=== PATIENT | male | born 1935 | race Caucasian/White ===

== ENCOUNTER 2018-02-02 02:22 | Inpatient (IN) | payer MEDICARE ==
[~2018-02-02] VITALS: Ht 165.1 cm; Wt 88.0 kg
[~2018-02-02 02:22] MED LIST: ALLO300T2 PO; ATOR20TA15 PO; BLOOD GLUCOSE T1 TES; CARD180C5 PO; CLON.2 PO; COZA100T PO; FURO20TA PO; GLIM1 PO; GLUCTES27; HYDR-3580 PO; LORA0.5T PO; Lancets; MEDICAL COMPRES1 MIS; METO50TA PO; MUPI2OIN TOPICAL; NITR0.4S SL; PANT40TA3 PO; PROS5TAB PO; TRIA.1%T TOPICAL; VITA10002 PO; VITA2000 PO
[2018-02-02 02:30] VITALS: BP 172/74; PULSE 74; RESP 20; TEMP 97.2; O2SAT 96
--- NOTE | 2018-02-02 02:41 | PD ---
HPI Chief Complaint: Abdominal Pain Time Seen by Provider: 02:36 Travel History International Travel<30 days: No Contact w/Intl Traveler<30days: No Traveled to known affect area: No History of Present Illness HPI Is an 82-year-old man presents emerged from chronic abdominal pain and nausea. He states symptoms started this evening. He states he has had similar problems a couple weeks ago with a lot of nausea and upset stomach but it resolved. Came on again tonight. He has a lot of trouble with constipation, is on chronic opiates. He states his bowels been a little bit loose today. No vomiting. Pains mostly in the lower abdomen, left greater than right. Urinating normally. Abdomen feels firm and hard and bloated. No other associated symptoms. No other complaints. History Past Medical History Narrative Medical - CAD, s/p CABG - Type 2 DM - CKD, stage III - Hypertension - nephrolithiasis - AAA (followed by Dr. Aaron) - s/p endovascular repair 2012 - hyperlipidemia - gout - chronic thrombocyptopenia (followed by Dr. Horner) - cirrhosis, portal hypertensive gastropathy - BPH - OA Tetanus Vaccination: Unknown Influenza Vaccination: Yes Social History Alcohol Use: Yes (VERY RARELY) Tobacco Use: No Allergies-Medications (Allergen,Severity, Reaction): Coded Allergies: penicillin G (Unverified Allergy, Severe, HIVES, 02/02/18) Reported Meds & Prescriptions Reported Meds & Active Scripts Active Lorazepam 0.5 Mg Tab 0.5 Mg PO DIRECTED PRN 1 tablet at bedtime as needed for sleep and 1 daily as needed for anxiety Cardizem CD 24 HR (Diltiazem CD 24 HR) 180 Mg Caper 360 Mg PO DAILY Take 2 180 mg tablets to equal 360 mg Triamcinolone Topical (Triamcinolone Acetonide) 0.1% Cream 1 Applic TOPICAL BID Nitrostat SL (Nitroglycerin) 0.4 Mg Subl 0.4 Mg SL DIRECTED PRN One tablet under tongue for angina as needed. Mupirocin Topical (Mupirocin) 2 % Oint 1 Applic TOPICAL BID Metoprolol Tartrate 50 Mg Tab 50 Mg PO BID Catapres (Clonidine) 0.2 Mg Tab 0.1 Mg PO BID Amaryl (Glimepiride) 1 Mg Tab 1 Mg PO DAILY Take with breakfast or first main meal Medical Compression Elastic Stockings 1 Mis Mis 1 Ea .ROUTE DIRECTED Wear to help with lower extremity edema Proscar (Finasteride) 5 Mg Tab 5 Mg PO DAILY Do not crush. Cozaar (Losartan Potassium) 100 Mg Tab 100 Mg PO DAILY Irma Contour Next Blood Test Strips (Blood Glucose Test Strips) 1 Darline Darline 1 Strip DAILY Atorvastatin (Atorvastatin Calcium) 20 Mg Tab 20 Mg PO HS Furosemide 20 Mg Tab 20 Mg PO DAILY Blood Glucose Test Strips 1 Darline Darline 1 Strips .ROUTE BID [Lancets] BID Reported Vitamin D3 (Cholecalciferol) 2,000 Unit Cap 2,000 Units PO DAILY Allopurinol 300 Mg Tab 300 Mg PO DAILY Pantoprazole (Pantoprazole Sodium) 40 Mg Tab 40 Mg PO DAILY Hydrocodone-Acetaminophen 7.5-325 mg Tab 1 Tab PO Q6H PRN Vitamin B-12 (Cyanocobalamin) 1,000 Mcg Tab 1,000 Mcg PO DAILY Review of Systems Except as stated in HPI: all other systems reviewed are Neg Physical Exam Narrative GENERAL: 82-year-old man, generally well-appearing. Abdomens rotund, but not obviously distended peer SKIN: Focused skin assessment warm/dry. HEAD: Atraumatic. Normocephalic. EYES: Pupils equal and round. No scleral icterus. No injection or drainage. ENT: No nasal bleeding or discharge. Mucous membranes pink and moist. NECK: Trachea midline. No JVD. CARDIOVASCULAR: Regular rate and rhythm. No murmur appreciated. RESPIRATORY: No accessory muscle use. Clear to auscultation. Breath sounds equal bilaterally. GASTROINTESTINAL: Rotund abdomen. Large umbilical hernia easily reducible. Mild lower abdominal tenderness. No rebound or guarding. RECTAL: No fecal impaction. Light brown stool in the rectal vault. MUSCULOSKELETAL: No obvious deformities. No edema. NEUROLOGICAL: Awake and alert. No obvious cranial nerve deficits. Motor grossly within normal limits. Normal speech. Data Data Last Documented VS Vital Signs Date Time Temp Pulse Resp B/P (MAP) Pulse Ox O2 Delivery O2 Flow Rate FiO2 02/02/18 02:30 97.2 74 20 172/74 (106) 96 Room Air Orders Orders Complete Blood Count With Diff (02/02/18 03:03) Comprehensive Metabolic Panel (02/02/18 03:03) Lipase (02/02/18 03:03) Urinalysis - C+S If Indicated (02/02/18 03:03) Iv Access Insert/Monitor (02/02/18 03:03) Ondansetron Inj (Zofran Inj) (02/02/18 03:15) Sodium Chloride 0.9% Flush (Ns Flush) (02/02/18 03:15) Ct Abd/Pel W/O Iv Contrast (02/02/18 ) Morphine Inj (Morphine Inj) (02/02/18 05:00) Metoclopramide Inj (Reglan Inj) (02/02/18 05:30) Aspirin Chew (Aspirin Chew) (02/02/18 09:00) Admit Order (Ed Use Only) (02/02/18 ) Labs Laboratory Tests Test 02/02/18 03:11 02/02/18 03:50 White Blood Count 8.3 TH/MM3 Red Blood Count 3.07 MIL/MM3 Hemoglobin 9.6 GM/DL Hematocrit 29.3 % Mean Corpuscular Volume 95.8 FL Mean Corpuscular Hemoglobin 31.3 PG Mean Corpuscular Hemoglobin Concent 32.7 % Red Cell Distribution Width 17.2 % Platelet Count 143 TH/MM3 Mean Platelet Volume 9.7 FL Neutrophils (%) (Auto) 88.5 % Lymphocytes (%) (Auto) 4.8 % Monocytes (%) (Auto) 4.5 % Eosinophils (%) (Auto) 1.4 % Basophils (%) (Auto) 0.8 % Neutrophils # (Auto) 7.3 TH/MM3 Lymphocytes # (Auto) 0.4 TH/MM3 Monocytes # (Auto) 0.4 TH/MM3 Eosinophils # (Auto) 0.1 TH/MM3 Basophils # (Auto) 0.1 TH/MM3 CBC Comment DIFF FINAL Differential Comment Blood Urea Nitrogen 49 MG/DL Creatinine 2.75 MG/DL Random Glucose 152 MG/DL Total Protein 7.8 GM/DL Albumin 3.0 GM/DL Calcium Level 9.5 MG/DL Alkaline Phosphatase 230 U/L Aspartate Amino Transf (AST/SGOT) 53 U/L Alanine Aminotransferase (ALT/SGPT) 22 U/L Total Bilirubin 0.5 MG/DL Sodium Level 142 MEQ/L Potassium Level 4.8 MEQ/L Chloride Level 108 MEQ/L Carbon Dioxide Level 23.4 MEQ/L Anion Gap 11 MEQ/L Estimat Glomerular Filtration Rate 22 ML/MIN Lipase 148 U/L Urine Color YELLOW Urine Turbidity CLEAR Urine pH 5.5 Urine Specific [place] 1.021 Urine Protein 300 OR GREATER mg/dL Urine Glucose (UA) NEG mg/dL Urine Ketones NEG mg/dL Urine Occult Blood SMALL Urine Nitrite NEG Urine Bilirubin NEG Urine Urobilinogen 1.0 MG/DL Urine Leukocyte Esterase NEG Urine RBC 4 /hpf Urine WBC 1 /hpf Urine Squamous Epithelial Cells <1 /hpf Urine Hyaline Casts 6 /lpf Microscopic Urinalysis Comment CULT NOT INDICATED MDM Medical Decision Making Medical Screen Exam Complete: Yes Emergency Medical Condition: Yes Interpretation(s) LABS: CBC remarkable for mild anemia. CMP remarkable for elevated BUN and creatinine 49/2.75 Lipase 148 UA with some protein. CT abdomen and pelvis: Stomach and proximal small bowel are dilated. Cirrhotic liver with appearance of hepatosplenomegaly and ascites. Fat and fluid containing umbilical hernia. 7 cm abdominal aortic aneurysm with endovascular repair. Small right pleural effusion. Differential Diagnosis Diverticulitis, constipation, obstipation, UTI, ascites, SBP, other Narrative Course Medical decision making Is an 82-year-old male presents to the emergency department with abdominal pain. He has a history of cirrhosis. Looks well. Easily reducible umbilical hernia. Rectal exam does not show any constipation or obstipation. Will check CT for diverticulitis. Labs. Reassess. FINAL: 82-year-old man with abdominal pain nausea and bloating. CT scan shows dilated stomach and proximal small bowel without a clear transition point. Stomach looks pretty distended on imaging. He can eat or drink at this point. No vomiting. I think it is worth keeping him in observation to make sure that he improves, does not worsen or progress to full obstruction. I think this is probably ileus, related to his cirrhosis and his medication use. Diagnosis Primary Impression: Ileus Additional Impression: Nausea Admitting Information Admitting Physician Requests: Carlos Hogan MD February 02, 2018 02:41
[2018-02-02] MEDS ORDERED: ONDANSETRON HCL 4 MG/2 ML VIAL IVP ONE (03:15)
[2018-02-02] MEDS ORDERED: SODIUM CHLORIDE 0.9% FLUSH 10 ML FLUSH IV FLUSH PRN ×2 (03:15→07:00)
[2018-02-02 03:26] LABS: AUTOMATED NEUTROPHIL # 7.3 TH/MM3 (1.8-7.7); BASOPHIL # 0.1 TH/MM3 (0-0.2); BASOPHIL % 0.8 % (0.0-2.0); EOSINOPHIL # 0.1 TH/MM3 (0-0.4); EOSINOPHIL % 1.4 % (0.0-4.0); HEMATOCRIT 29.3 % (39.0-51.0); HEMOGLOBIN 9.6 GM/DL (13.0-17.0); LYMPH % 4.8 % (9.0-44.0); LYMPHOCYTE # 0.4 TH/MM3 (1.0-4.8); MEAN CELL VOLUME 95.8 FL (80.0-100.0); MEAN CORPUSCULAR HEMOGLOBIN 31.3 PG (27.0-34.0); MEAN CORPUSCULAR HGB CONC 32.7 % (32.0-36.0); MEAN PLATELET VOLUME 9.7 FL (7.0-11.0); MONO % 4.5 % (0.0-8.0); MONOCYTE # 0.4 TH/MM3 (0-0.9); NEUT % 88.5 % (16.0-70.0); PLATELET COUNT 143 TH/MM3 (150-450); RED BLOOD COUNT 3.07 MIL/MM3 (4.50-5.90); RED CELL DISTRIBUTION WIDTH 17.2 % (11.6-17.2); WHITE BLOOD COUNT 8.3 TH/MM3 (4.0-11.0)
[2018-02-02 03:52] LABS: ALT (GPT) 22 U/L (12-78); AST (GOT) 53 U/L (15-37); BICARBONATE 23.4 MEQ/L (21.0-32.0); BLOOD UREA NITROGEN 49 MG/DL (7-18); CALCIUM 9.5 MG/DL (8.5-10.1); CHLORIDE 108 MEQ/L (98-107); CREATININE 2.75 MG/DL (0.60-1.30); GLOMERULAR FILTRATION RATE 22 ML/MIN (>89); GLUCOSE,RANDOM 152 MG/DL (74-106); SODIUM (NA) 142 MEQ/L (136-145)
[2018-02-02 03:53] LABS: ALKALINE PHOSPHATASE 230 U/L (45-117); TOTAL BILIRUBIN ADULT 0.5 MG/DL (0.2-1.0); TOTAL PROTEIN 7.8 GM/DL (6.4-8.2)
[2018-02-02 04:15] LABS: BILIRUBIN, URINE NEG (NEG); BLOOD, URINE SMALL (NEG); GLUCOSE,URINE NEG (NEG); KETONE, URINE NEG (NEG); NITRITE,URINE NEG (NEG); PH, URINE 5.5 (5.0-8.5); URINE COLOR YELLOW (YELLW/STRAW); URINE LEUKOCYTE ESTERASE NEG (NEG)
[2018-02-02 04:19] LABS: HYALINE CAST, URINE 6 /lpf (RARE); SQUAMOUS EPITHELIAL CELL URINE <1 /hpf (0-5)
--- NOTE | 2018-02-02 04:42 | RADRPT ---
EXAM DATE/TIME: 02/02/2018 03:28 [facility] COMPARISON: No previous studies available for comparison. INDICATIONS : Abdominal pain, nausea and constipation. ORAL CONTRAST: No oral contrast ingested. RADIATION DOSE: 13.15 CTDIvol (mGy) MEDICAL HISTORY : Renal failure, chronic. Aneurysm, abdominal. Hypertension.Diabetes. BPH. Renal calculi. SURGICAL HISTORY : Appendectomy. CABGAbdominal aortic aneurysm repair. ENCOUNTER: Initial ACUITY: 2 days PAIN SCALE: 6/10 LOCATION: Abdomen. TECHNIQUE: Volumetric scanning of the abdomen and pelvis was performed. Using automated exposure control and ad justment of the mA and/or kV according to patient size, radiation dose was kept as low as reasonably achievable to obtain optimal diagnostic quality images. DICOM format image data is available electro nically for review and comparison. FINDINGS: LOWER LUNGS: Small right pleural effusion LIVER: Cirrhotic liver appearance with ascites, mainly around the liver and spleen in the upper abdomen. SPLEEN: Enlarged without focal mass PANCREAS: Within normal limits. KIDNEYS: Normal in size and shape. There is no mass, stone, or hydronephrosis. ADRENAL GLANDS: Within normal limits. VASCULAR: Abdominal aortic aneurysm post previous endovascular repair. BOWEL/MESENTERY: Stomach and proximal small bowel are dilated. Gradual transition to normal caliber mid small bowel. C olon is decompressed with scattered diverticula. ABDOMINAL WALL: Fat and fluid containing umbilical hernia RETROPERITONEUM: There is no lymphadenopathy. BLADDER: No wall thickening or mass. REPRODUCTIVE: Within normal limits. INGUINAL: There is no lymphadenopathy or hernia. MUSCULOSKELETAL: Within normal limits for patient age. CONCLUSION: Stomach and proximal small bowel are dilated. Cirrhotic liver appearance with hepatosplenomegaly and ascites. Fat and fluid containing umbilical hernia Greater than 7 cm abdominal aortic aneurysm with endovascular repair noted Small right pleural effusion Carlos Miranda MD on February 02, 2018 at 4:33 Board Certified Radiologist. This report was verified electronically.
[2018-02-02] MEDS ORDERED: MORPHINE SULFATE 4 MG/ML INJ IV PUSH ONE (05:00)
[2018-02-02] MEDS ORDERED: METOCLOPRAMIDE HCL 10 MG/2 ML VIAL IV PUSH ONE (05:30)
--- NOTE | 2018-02-02 06:19 | HHI.HP ---
[facility] Service Family Medicine Primary Care Physician Fito Montgomery MD Admission Diagnosis Ileus, vomiting Diagnoses: International Travel<30 Days: No Contact w/Intl Traveler<30days: No Known Affected Area: No History of Present Illness The patient is a very pleasant 82 year old man with PMH significant for nephrolithiasis, HTN, T2DM, AAA s/p endovascular repair, gout who presented to the ED for evaluation of abdominal and back pain. Patient states his abdominal pain began a little after 18:00 yesterday after eating. He states this is not his first episode of this type of pain. He reports having a history of this type of pain after eating. He reports a history of constipation. He reports having a small episode of diarrhea late last night. He reports bilateral lower abdominal pain. Reports a 10/10 pain currently. He denies fevers or chills, chest pain, dyspnea. He endorses vomiting about 5 episodes here in the ED. He reports about 5 weeks ago he was also very nauseated and he had some episodes of emesis around this time. No recurrence of emesis until today. Per patient, he was told his emesis earlier today was bilious. Denies any emesis of blood. (Enrike Felix MD R2) Review of Systems Constitutional: DENIES: Fever, Chills Eyes: COMPLAINS OF: Blurred vision Respiratory: DENIES: Cough, Wheezing, Sputum production, Shortness of breath Cardiovascular: DENIES: Chest pain, Palpitations, Dyspnea on Exertion Gastrointestinal: COMPLAINS OF: Abdominal pain, Constipation, Diarrhea, Nausea , Vomiting, DENIES: Black stools, Bloody stools Genitourinary: DENIES: Hematuria, Dysuria Integumentary: DENIES: Rash Neurologic: COMPLAINS OF: Headache (Enrike Felix MD R2) Past Family Social History Past Medical History - ASHD - Type 2 DM - Hypertension - nephrolithiasis - AAA (followed by Dr. Aaron) - s/p endovascular repair 2012 - hyperlipidemia - gout - sub 5mm pulmonary nodule noted on chest CT 2007 (asbestoes related pleural disease also suggested) - stable on serial CT's - thrombocyptopenia (followed by Dr. Donaldson - imaging studies did show a component of cirrhosis) - portal hypertensive gastropathy - colon polyps - low serum B-12 level Past Surgical History - CABG - T&A - appendectomy - upper and lower endoscopy 11/20/12 - endovascular repair of AAA 2013 (Enrike Felix MD R2) Allergies: Coded Allergies: penicillin G (Unverified Allergy, Severe, HIVES, 02/02/18) Family History Heart disease, diabetes, hypertension, depression Social History Marrital Status: Living Situation: private home with Education: HS Work history: retired, [employer] Tobacco: none Alcohol: denies, last drink about 40 years ago Illicit drug use: none (Enrike Felix MD R2) Physical Exam Vital Signs Vital Signs Date Time Temp Pulse Resp B/P (MAP) Pulse Ox O2 Delivery O2 Flow Rate FiO2 02/02/18 02:30 97.2 74 20 172/74 (106) 96 Room Air Physical Exam GENERAL: NAD, sitting comfortably on side of bed NEURO: Alert. Normal speech. 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 Motor grossly normal. SKIN: Warm and dry. No rashes or erythema. HEAD: Normocephalic. Atraumatic. EYES: PERRL. EOMI. No scleral icterus. No injection or drainage. ENT: No nasal drainage. Moist mucous membranes. No oral ulcers or lesions. NECK: Supple, trachea midline. No JVD or lymphadenopathy. No carotid bruits. CARDIOVASCULAR: Regular rate and rhythm, early systolic blowing murmur LUSB. Peripheral pulses 2+. Capillary refill < 2 seconds. RESPIRATORY: Breath sounds clear to auscultation and equal bilaterally, without wheezes, rales, or rhonchi. No accessory muscle use. GASTROINTESTINAL: Abdomen tense but not hard, protuberant, mildly tender in the lower quadrants bilaterally, hypoactive bowel sounds. No rebound tenderness. No guarding. No tympany to percussion. MUSCULOSKELETAL: 1+ lower extremity edema to distal tibias bilaterally. Normal range of motion. BACK: Nontender without obvious deformity. No CVA tenderness. Laboratory Laboratory Tests Test 02/02/18 03:11 02/02/18 03:50 White Blood Count 8.3 Red Blood Count 3.07 Hemoglobin 9.6 Hematocrit 29.3 Mean Corpuscular Volume 95.8 Mean Corpuscular Hemoglobin 31.3 Mean Corpuscular Hemoglobin Concent 32.7 Red Cell Distribution Width 17.2 Platelet Count 143 Mean Platelet Volume 9.7 Neutrophils (%) (Auto) 88.5 Lymphocytes (%) (Auto) 4.8 Monocytes (%) (Auto) 4.5 Eosinophils (%) (Auto) 1.4 Basophils (%) (Auto) 0.8 Neutrophils # (Auto) 7.3 Lymphocytes # (Auto) 0.4 Monocytes # (Auto) 0.4 Eosinophils # (Auto) 0.1 Basophils # (Auto) 0.1 CBC Comment DIFF FINAL Differential Comment Blood Urea Nitrogen 49 Creatinine 2.75 Random Glucose 152 Total Protein 7.8 Albumin 3.0 Calcium Level 9.5 Alkaline Phosphatase 230 Aspartate Amino Transf (AST/SGOT) 53 Alanine Aminotransferase (ALT/SGPT) 22 Total Bilirubin 0.5 Sodium Level 142 Potassium Level 4.8 Chloride Level 108 Carbon Dioxide Level 23.4 Anion Gap 11 Estimat Glomerular Filtration Rate 22 Lipase 148 Urine Color YELLOW Urine Turbidity CLEAR Urine pH 5.5 Urine Specific [place] 1.021 Urine Protein 300 OR GREATER Urine Glucose (UA) NEG Urine Ketones NEG Urine Occult Blood SMALL Urine Nitrite NEG Urine Bilirubin NEG Urine Urobilinogen 1.0 Urine Leukocyte Esterase NEG Urine RBC 4 Urine WBC 1 Urine Squamous Epithelial Cells <1 Urine Hyaline Casts 6 Microscopic Urinalysis Comment CULT NOT INDICATED (Enrike Felix MD R2) Result Diagram: 02/02/18 0311 02/02/18 0311 Imaging Last 72 hours Impressions Abdomen/Pelvis CT 02/02/18 0000 Signed Impressions: Service Date/Time: Friday, February 02, 2018 03:28 - CONCLUSION: Stomach and proximal small bowel are dilated. Cirrhotic liver appearance with hepatosplenomegaly and ascites. Fat and fluid containing umbilical hernia Greater than 7 cm abdominal aortic aneurysm with endovascular repair noted Small right pleural effusion Carlos Miranda MD (Enrike Felix MD R2) Caprini VTE Risk Assessment Caprini VTE Risk Assessment: Mod/High Risk (score >= 2) Caprini Risk Assessment Model Point Value = 1 Point Value = 2 Point Value = 3 Point Value = 5 Age 41-60 Minor surgery BMI > 25 kg/m2 Swollen legs Varicose veins or History of unexplained or recurrent spontaneous Oral contraceptives or hormone replacement Sepsis (< 1 month) Serious lung disease, including pneumonia (< 1 month) Abnormal pulmonary function Acute myocardial infarction Congestive heart failure (< 1 month) History of inflammatory bowel disease Medical patient at bed rest Age 61-74 Arthroscopic surgery Major open surgery (> 45 min) Laparoscopic surgery (> 45 min) Malignancy Confined to bed (> 72 hours) Immobilizing plaster cast Central venous access Age >= 75 History of VTE Family history of VTE Factor V Leiden Prothrombin [id number] Lupus anticoagulant Anticardiolipin antibodies Elevated serum homocysteine Heparin-induced thrombocytopenia Other congenital or acquired thrombophilia Stroke (< 1 month) Elective arthroplasty Hip, pelvis, or leg fracture Acute spinal cord injury (< 1 month) Prophylaxis Regimen Total Risk Factor Score Risk Level Prophylaxis Regimen 0-1 Low Early ambulation 2 Moderate Order ONE of the following: *Sequential Compression Device (SCD) *Heparin 5000 units SQ BID 3-4 Higher Order ONE of the following medications: *Heparin 5000 units SQ TID *Enoxaparin/Lovenox 40 mg SQ daily (WT < 150 kg, CrCl > 30 mL/min) *Enoxaparin/Lovenox 30 mg SQ daily (WT < 150 kg, CrCl > 10-29 mL/min) *Enoxaparin/Lovenox 30 mg SQ BID (WT < 150 kg, CrCl > 30 mL/min) AND/OR *Sequential Compression Device (SCD) 5 or more Highest Order ONE of the following medications: *Heparin 5000 units SQ TID (Preferred with Epidurals) *Enoxaparin/Lovenox 40 mg SQ daily (WT < 150 kg, CrCl > 30 mL/min) *Enoxaparin/Lovenox 30 mg SQ daily (WT < 150 kg, CrCl > 10-29 mL/min) *Enoxaparin/Lovenox 30 mg SQ BID (WT < 150 kg, CrCl > 30 mL/min) AND *Sequential Compression Device (SCD) (Enrike Felix MD R2) Assessment and Plan Assessment and Plan 82 year old man being admitted due to an ileus. Code Status Full code Discussed Condition With Dr. Romeo Herron (Enrike Felix MD R2) Attending Attestation Patient seen and examined. Case reviewed and discussed with the resident team. Agree with plan of care as discussed with me and documented in the resident note. he was sipping his own water when I entered the room and wanted "a little orange juice". he is not currently vomiting and has had 2 normal bowel movements this am. will allow po liquids as he is already taking these and tolerating his water. discussed referral to lymphedema clinic as an outpt and he is interested in that as he has constant swelling of his legs (Clary Ramirez MD) Problem List: (1) Ileus ICD Codes: K56.7 - Ileus, unspecified Status: Acute Plan: The patient appears most likely to have an ileus and reports a history of this, abdomen is protuberant, no peritoneal signs at this time. He appears relatively comfortable on examination in the ED Abdomen/pelvis CT showing stomach and proximal small bowel dilation Afebrile without leukocytosis UA negative, no CVA tenderness Plan: - NPO except meds for bowel rest - IVF hydration with NS at 130 cc/hr - Ofirmev 1gm IV q6h prn pain - Constipation protocol ordered - Consider NGT suction if needed (2) Nausea ICD Codes: R11.0 - Nausea Status: Acute Plan: Zofran prn N/V Plan as above (3) Chronic kidney disease, stage III (moderate) ICD Codes: N18.3 - Chronic kidney disease, stage III (moderate) Plan: Patient has a history of stage III CKD GFR on admission is 22 IVF hydration as above Avoid nephrotoxins if able Monitor I/Os Permanent Comment: GFR at 50 - followed by nephrology, Dr. Ayala Last Edited By: Ftio Montgomery on Dec 27, 2012 10:05 (4) Hypertension ICD Codes: I10 - Hypertension Status: Chronic Plan: Continue home antihypertensives - Clonidine 0.1 mg po bid - Cardizem 360 mg po daily - Metoprolol 50 mg po bid Monitor vitals q4h (5) Type II diabetes mellitus ICD Codes: E11.9 - Type 2 diabetes mellitus Status: Acute Plan: Hold home glimepiride Accuchecks ACHS Low-dose ISS (6) Nutrition, metabolism, and development symptoms ICD Codes: R63.8 - Other symptoms and signs concerning food and fluid intake Plan: Fluids: NS at 130 cc/hr Electrolytes: Continue to monitor Nutrition: NPO DVT ppx: b/l SCDs (Enrike Felix MD R2) Physician Certification 2 Midnight Certification Type: Admission for Inpatient Services Order for Inpatient Services The services are ordered in accordance with Medicare regulations or non- Medicare payer requirements, as applicable. In the case of services not specified as inpatient-only, they are appropriately provided as inpatient services in accordance with the 2-midnight benchmark. Estimated LOS (days): 2 days is the estimated time the patient will need to remain in the hospital, assuming treatment plan goals are met and no additional complications. Post-Hospital Plan: Home (Enrike Felix MD R2) Enrike Felix MD R2 February 02, 2018 06:19 Clary Ramirez MD February 02, 2018 12:26
[2018-02-02] MEDS ORDERED: LORazepam 0.5 MG TAB PO PRN (06:30)
[2018-02-02 06:43] VITALS: BP 151/69; PULSE 69; RESP 20; O2SAT 97
[2018-02-02] MEDS ORDERED: LACTULOSE SYRUP 20 GM/30 ML CUP PO PRN (07:00)
[2018-02-02] MEDS ORDERED: NALOXONE HCL 0.4 MG/ML AMP IV PUSH PRN (07:00)
[2018-02-02] MEDS ORDERED: SENNOSIDES 8.6 MG TAB PO PRN (07:00)
[2018-02-02] MEDS ORDERED: BISACODYL 10 MG SUPP RECTAL PRN (07:00)
[2018-02-02] MEDS ORDERED: MAGNESIUM HYDROXIDE SUSP 30 ML CUP PO PRN (07:00)
[2018-02-02] MEDS ORDERED: ONDANSETRON HCL 4 MG/2 ML VIAL IVP PRN (07:00)
[2018-02-02] MEDS ORDERED: TEMAZEPAM 15 MG CAP PO PRN (07:00)
[2018-02-02] MEDS ORDERED: DEXTROSE 50% IN WATER 50 ML VIAL(D50) IV PUSH PRN (07:15)
[2018-02-02] MEDS ORDERED: NITROGLYCERIN 0.4 MG SL 25 TABS/BTL SL PRN (07:15)
[2018-02-02] MEDS ORDERED: GLUCAGON 1 MG/ML VIAL OTHER PRN (07:15)
[2018-02-02] MEDS: ACETAMINOPHEN 1000 MG/100 ML 100 ML IV SCH ×3 (07:35→18:36)
[2018-02-02 07:53] VITALS: BP 132/63; PULSE 64; RESP 16; TEMP 97.8; O2SAT 98
[2018-02-02] MEDS: INSULIN ASPART SUPPLEMENTAL SCALE SQ SCH ×4 (10:07→21:00)
[2018-02-02] MEDS: ASPIRIN 81 MG CHEW TAB CHEW SCH (10:07)
[2018-02-02] MEDS: DOCUSATE SODIUM 50 MG/SENNA 8.6 MG TAB PO SCH ×2 (10:07→22:05)
[2018-02-02] MEDS: SODIUM CHLORIDE 0.9% FLUSH 10 ML FLUSH IV FLUSH SCH ×2 (10:08→22:04)
[2018-02-02] MEDS: FINASTERIDE 5 MG TAB PO SCH (10:09)
[2018-02-02] MEDS: cloNIDine HCL 0.1 MG TAB PO SCH ×2 (10:09→22:05)
[2018-02-02] MEDS: PANTOPRAZOLE SOD 40 MG DELAYED RELEASE TAB PO SCH (10:09)
[2018-02-02] MEDS: METOPROLOL TARTRATE 50 MG TAB PO SCH ×2 (10:09→22:05)
[2018-02-02] MEDS: LOSARTAN 50 MG TAB PO SCH (10:10)
[2018-02-02] MEDS: SODIUM CHLOR 0.9% 1000 ML INJ 1,000 ML IV SCH ×3 (10:22→19:15)
[2018-02-02] MEDS: FUROSEMIDE 20 MG TAB PO SCH (10:22)
[2018-02-02] MEDS: DILTIAZEM-CD 180 MG CAP ER PO SCH (10:27)
[2018-02-02] MEDS: TRIAMCINOLONE ACETONIDE 0.1% CREAM 15 GM TOPICAL SCH ×2 (14:31→22:06)
[2018-02-02] MEDS: MUPIROCIN 2% OINT 22 GM TUBE TOPICAL SCH ×2 (14:31→22:06)
[2018-02-02 15:06] VITALS: BP 128/57; PULSE 58; RESP 16; TEMP 97.9; O2SAT 96
[2018-02-02 19:45] VITALS: BP 150/69; PULSE 59; RESP 18; TEMP 97.9; O2SAT 94
[2018-02-02] MEDS ORDERED: ATORVASTATIN 20 MG TAB PO SCH (21:00)
[2018-02-03 00:27] VITALS: BP 186/85; PULSE 62; RESP 18; TEMP 98.1; O2SAT 95
[2018-02-03] MEDS: ACETAMINOPHEN 1000 MG/100 ML 100 ML IV SCH ×2 (00:51→05:38)
[2018-02-03 03:58] VITALS: BP 169/77; PULSE 66; RESP 18; TEMP 98.5; O2SAT 94
[2018-02-03] MEDS: SODIUM CHLOR 0.9% 1000 ML INJ 1,000 ML IV SCH (05:55)
[2018-02-03 07:28] VITALS: BP 172/75; PULSE 68; RESP 16; TEMP 98; O2SAT 98
[2018-02-03] MEDS: INSULIN ASPART SUPPLEMENTAL SCALE SQ SCH (08:00)
--- NOTE | 2018-02-03 08:14 | HHI.FPPN ---
Subjective Remarks Mr. Ribera was afebrile with HTN overnight ( SBP's from 128-186); other VS wnl. Patient reports that he is doing well at this time. His abdominal pain and back pain have resolved. Patient reports large bowel movement with diarrhea yesterday. Patient is passing gas. Patient requests regular diet today stating he is hungry and would like to go home today if possible. No chest pain or shortness of breath. Patient feels that he is urinating normally; he has f/u with Nephrology in ~2mo. Patient's home BP also discussed; he checks it regularly and generally gets systolic values in 140's-160's. Patient would like to continue current regimen and monitor at home. (Erick Martinez MD R3) Remarks Patient did well after eating breakfast without abdominal pain CBC resulted- Hgb 8.1. No bleeding; assumed dilutional. Patient agreeable to getting outpatient CBC in 2-3 days and following up with Dr. Montgomery Repeat Cr 2.2; at baseline. will f/u with Nephrology routinely Patient will go to lymphedema clinic Will start stool softener for ileus on narcotics; can discuss with Dr. Montgomery about other bowel motility agents (Erick Martinez MD R3) Objective Vitals Vital Signs Date Time Temp Pulse Resp B/P (MAP) Pulse Ox O2 Delivery O2 Flow Rate FiO2 02/03/18 07:28 98.0 68 16 172/75 (107) 98 02/03/18 03:58 98.5 66 18 169/77 (107) 94 02/03/18 00:27 98.1 62 18 186/85 (118) 95 02/02/18 19:45 97.9 59 18 150/69 (96) 94 02/02/18 15:06 97.9 58 16 128/57 (80) 96 02/02/18 08:15 I/O 02/02/18 02/02/18 02/02/18 02/03/18 02/03/18 02/03/18 07:00 15:00 23:00 07:00 15:00 23:00 Intake Total 100 ml Output Total 350 ml Balance 100 ml -350 ml Intake IV Total 100 ml Output Urine Total 100 ml Stool Total 250 ml # Voids 2 2 # Bowel Movements 1 3 (Erick Martinez MD R3) Result Diagram: 02/03/18 0824 02/03/18 0824 Imaging Last Impressions Abdomen/Pelvis CT 02/02/18 0000 Signed Impressions: Service Date/Time: Friday, February 02, 2018 03:28 - CONCLUSION: Stomach and proximal small bowel are dilated. Cirrhotic liver appearance with hepatosplenomegaly and ascites. Fat and fluid containing umbilical hernia Greater than 7 cm abdominal aortic aneurysm with endovascular repair noted Small right pleural effusion Carlos Miranda MD Objective Remarks GENERAL: NAD, sitting comfortably on side of bed NEURO: Grossly normal cranial nerves. Grossly normal motor and sensory function peripherally SKIN: Warm and dry. No rashes or erythema. EYES: EOM grossly I CARDIOVASCULAR: Regular rate and rhythm, early systolic blowing murmur LUSB. 2+ peripheral edema to mid tibias bilaterally RESPIRATORY: Breath sounds clear to auscultation and equal bilaterally, without wheezes or congestion. Normal rate GASTROINTESTINAL: Normal bowel sounds. Large abdomen; no pain to palpation MUSCULOSKELETAL: Grossly normal motor function and ROM. No calf tenderness (Erick Martinez MD R3) A/P Assessment and Plan 82 year old man being admitted due to an ileus. (Erick Martinez MD R3) Attending Attestation Patient seen and examined. Case reviewed and discussed with the resident team. Agree with plan of care as discussed with me and documented in the resident note. he feels well and actually wanted to go home yesterday after his bowel movements. he will try miralax at home as she has chronic problems with constipation at least partially due to his Lortab (Clary Ramirez MD) Problem List: (1) Ileus ICD Codes: K56.7 - Ileus, unspecified Status: Acute Plan: 02/03- patient with resolved abdominal pain. Passing gas. Had diarrhea yesterday. Requests regular diet Impression: Patient with abdominal pain on admission. Reported history of ileus. Abdomen/pelvis CT showing stomach and proximal small bowel dilation Afebrile without leukocytosis UA negative, no CVA tenderness Plan: - Will advance diet from clear fluids to regular diet per patient request -Will plan to discharge if labs stable and patient tolerates food well as he is stooling well and without abdominal pain - IVF hydration with NS at 130 cc/hr - Ofirmev 1gm IV q6h prn pain - Constipation protocol ordered - Consider NGT suction if needed (2) Nausea ICD Codes: R11.0 - Nausea Status: Resolved Plan: Zofran prn N/V Plan as above (3) Chronic kidney disease, stage III (moderate) ICD Codes: N18.3 - Chronic kidney disease, stage III (moderate) Plan: Impression: Patient has a history of stage III CKD GFR on admission is 22 300 proteinuria on UA on admission -IVF hydration as above -Continue ARB for proteinuria -Avoid nephrotoxins if able -Monitor I/Os -Will repeat metabolic panel /6; assuming Cr back to baseline with IVF then patient can f/u routinely with his Super[facility] Permanent Comment: GFR at 50 - followed by nephrology, Dr. Ayala Last Edited By: Fito Montgomery on Dec 27, 2012 10:05 (4) Hypertension ICD Codes: I10 - Hypertension Status: Chronic Plan: 02/03: Discussed with patient; he would prefer to keep same regimen despite some frequent elevated BP during hospitalization. He will monitor at home and f/u with Dr. Montgomery Impression: Hypertensive during hospitalization intermittently with max SBP's in 180's. Patient checks BP at home regularly Continue home antihypertensives - Clonidine 0.1 mg po bid - Cardizem 360 mg po daily - Metoprolol 50 mg po bid -Monitor vitals q4h (5) Type II diabetes mellitus ICD Codes: E11.9 - Type 2 diabetes mellitus Status: Acute Plan: Hold home glimepiride Accuchecks ACHS Low-dose ISS (6) Nutrition, metabolism, and development symptoms ICD Codes: R63.8 - Other symptoms and signs concerning food and fluid intake Plan: Fluids: NS at 130 cc/hr Electrolytes: Continue to monitor Nutrition: NPO DVT ppx: b/l SCDs (Erick Martinez MD R3) Problem Qualifiers (1) Hypertension: Qualified Codes: I10 - Essential (primary) hypertension Erick Martinez MD R3 February 03, 2018 08:14 Clary Ramirez MD February 03, 2018 12:01
[2018-02-03] MEDS: SODIUM CHLORIDE 0.9% FLUSH 10 ML FLUSH IV FLUSH SCH (09:00)
[2018-02-03] MEDS: DOCUSATE SODIUM 50 MG/SENNA 8.6 MG TAB PO SCH (09:00)
[2018-02-03] MEDS: TRIAMCINOLONE ACETONIDE 0.1% CREAM 15 GM TOPICAL SCH (09:00)
[2018-02-03] MEDS: MUPIROCIN 2% OINT 22 GM TUBE TOPICAL SCH (09:00)
[2018-02-03 09:21] LABS: AUTOMATED NEUTROPHIL # 4.7 TH/MM3 (1.8-7.7); BASOPHIL % 0.5 % (0.0-2.0); EOSINOPHIL # 0.1 TH/MM3 (0-0.4); EOSINOPHIL % 2.1 % (0.0-4.0); HEMATOCRIT 25.2 % (39.0-51.0); HEMOGLOBIN 8.1 GM/DL (13.0-17.0); LYMPH % 7.3 % (9.0-44.0); LYMPHOCYTE # 0.4 TH/MM3 (1.0-4.8); MEAN CELL VOLUME 96.7 FL (80.0-100.0); MEAN CORPUSCULAR HEMOGLOBIN 31.2 PG (27.0-34.0); MEAN CORPUSCULAR HGB CONC 32.3 % (32.0-36.0); MEAN PLATELET VOLUME 9.5 FL (7.0-11.0); MONO % 5.5 % (0.0-8.0); MONOCYTE # 0.3 TH/MM3 (0-0.9); NEUT % 84.6 % (16.0-70.0); PLATELET COUNT 109 TH/MM3 (150-450); RED CELL DISTRIBUTION WIDTH 17.2 % (11.6-17.2); WHITE BLOOD COUNT 5.5 TH/MM3 (4.0-11.0)
[2018-02-03 09:41] LABS: BICARBONATE 21.2 MEQ/L (21.0-32.0); CREATININE 2.25 MG/DL (0.60-1.30)
--- NOTE | 2018-02-03 09:47 | HHI.DCPOC ---
Discharge Care Plan Diagnosis: (1) Ileus (2) Chronic kidney disease, stage III (moderate) (3) Hypertension (4) Swelling of lower extremity Goals to Promote Your Health * To prevent worsening of your condition and complications * To maintain your health at the optimal level Directions to Meet Your Goals Take your medications as prescribed Follow your dietary instruction Follow activity as directed Keep your appointments as scheduled Take your immunizations and boosters as scheduled If your symptoms worsen call your PCP, if no PCP go to Urgent Care Center or Emergency Room Smoking is Dangerous to Your Health. Avoid second hand smoke Call the 24-hour hour crisis hotline for domestic abuse at Ercik Martinez MD R3 February 03, 2018 09:47
[2018-02-03] MEDS ORDERED: ASPI-516 CHEW (10:15)
[2018-02-03] MEDS ORDERED: DOCU8.6T PO (10:15)
[2018-02-03] MEDS: DILTIAZEM-CD 180 MG CAP ER PO SCH (10:22)
[2018-02-03] MEDS: LOSARTAN 50 MG TAB PO SCH (10:22)
[2018-02-03] MEDS: METOPROLOL TARTRATE 50 MG TAB PO SCH (10:22)
[2018-02-03] MEDS: FINASTERIDE 5 MG TAB PO SCH (10:23)
[2018-02-03] MEDS: cloNIDine HCL 0.1 MG TAB PO SCH (10:23)
[2018-02-03] MEDS: ASPIRIN 81 MG CHEW TAB CHEW SCH (10:23)
[2018-02-03] MEDS: FUROSEMIDE 20 MG TAB PO SCH (10:24)
[2018-02-03] MEDS: PANTOPRAZOLE SOD 40 MG DELAYED RELEASE TAB PO SCH (10:24)
[2018-02-03] MEDS ORDERED: MIRA3350 PO (11:02)
[2018-02-03 13:01] LABS: ALBUMIN 2.6 GM/DL (3.4-5.0); DIRECT BILIRUBIN ADULT 0.2 MG/DL (0.0-0.2)
[2018-02-03 13:03] LABS: INDIRECT BILIRUBIN 0.3 MG/DL (0.0-0.8); TOTAL BILIRUBIN ADULT 0.5 MG/DL (0.2-1.0); TOTAL PROTEIN 6.5 GM/DL (6.4-8.2)
== END 2018-02-03 13:34 | disposition home or self-care (01) | DRG 389 ==
LOC: NEPE 02:22 → NEDA 05:58 → NEPFCDU 07:53 → OBSVTOIN 11:44
PROVIDERS: ADMIT Family Medicine; ATTEND Family Medicine
DX: K56.7 Ileus, unspecified (principal); K76.6 Portal hypertension; E11.22 Type 2 diabetes mellitus with diabetic chronic kidney disease; Z79.84 Long term (current) use of oral hypoglycemic drugs; D69.6 Thrombocytopenia, unspecified; I12.9 Hypertensive chronic kidney disease with stage 1 through stage 4 chronic kidney disease, or unspecified chronic kidney disease; N18.3 Chronic kidney disease, stage 3 (moderate); Z79.891 Long term (current) use of opiate analgesic; K31.89 Other diseases of stomach and duodenum; M10.9 Gout, unspecified; I25.10 Atherosclerotic heart disease of native coronary artery without angina pectoris; Z95.1 Presence of aortocoronary bypass graft; E78.5 Hyperlipidemia, unspecified; R91.1 Solitary pulmonary nodule; Z86.010 Personal history of colon polyps
CPT/HCPCS: 74176; 80048; 80053; 80076; 81001; 82948; 83690; 85025; 96374; 96375; J0131; J1815; J2270; J2405; J2765; J7030

== ENCOUNTER 2018-02-18 20:38 | Inpatient (IN) | payer MEDICARE ==
[~2018-02-18] VITALS: Ht 165.1 cm; Wt 81.8 kg
[~2018-02-18 20:38] MED LIST changes: +ASPI-516 CHEW; +MIRA3350 PO
[2018-02-18 21:11] VITALS: BP 162/72; PULSE 108; RESP 22; TEMP 98.2; O2SAT 95
[2018-02-18 21:34] VITALS: PULSE 98; RESP 16; O2SAT 94
[2018-02-18] MEDS ORDERED: FURO40TA PO (21:47)
[2018-02-18 22:06] VITALS: BP 177/79; PULSE 108; RESP 18; O2SAT 94
[2018-02-18] MEDS ORDERED: METOCLOPRAMIDE HCL 10 MG/2 ML VIAL IV PUSH ONE (22:15)
--- NOTE | 2018-02-18 22:23 | PD ---
HPI Chief Complaint: GI Complaint Time Seen by Provider: 21:43 Travel History International Travel<30 days: No Contact w/Intl Traveler<30days: No Traveled to known affect area: No History of Present Illness HPI 82-year-old male that presents to the ED for evaluation of abdominal pain, bloating and nausea. Per patient he was here early on January for evaluation of the same. Patient was admitted for abnormality to his small colon. Patient states that after being discharged he felt fine and he was doing well until the past couple of days when he started developing similar symptoms. Per patient for the past 3-4 days she has been having more pain and nausea and feeling that his catheter well. She takes chronic narcotics for anxiety and chronic pain. He states that he has been having normal bowel movements. States overall he feels nauseous and his appetite has been diminished. He has a hernia on his abdomen but denies any recent surgeries. He does have a history of AAA that was fixed by Dr. Live years ago. He also states that he has been having "arthritis pain." Per patient mainly to his shoulder, hips and back. He states that is been ongoing for years but it has been worsening with abdominal pain. Per patient his discomfort is 7 out of 10. Has an allergy to iodine. He has an allergy to penicillin. Denies any other medical issues. Has been passing gas. PFSH Past Medical History AAA: Yes (STENTED BY DR. HINSON 2012) Anemia: Yes (IRON DEF. ) Arthritis: Yes Asthma: No Blood Disorders: No Anxiety: Yes Depression: No Heart Rhythm Problems: Yes Cancer: No Cardiac Catheterization: Yes Cardiovascular Problems: Yes (TRIPLE BYPASS) High Cholesterol: Yes Chemotherapy: No Chest Pain: Yes Congestive Heart Failure: No COPD: No Coronary Artery Disease: Yes Diabetes: Yes Patient Takes Glucophage: No Diminished Hearing: No Endocrine: No GERD: Yes Genitourinary: No Hepatitis: No Hiatal Hernia: No Heparin Induced Thrombocytopen: No Hypertension: Yes Immune Disorder: No Kidney Stones: Yes Musculoskeletal: Yes (ARTHRITIS) Neurologic: No Psychiatric: No Reproductive: No Respiratory: No Immunizations Current: Yes Myocardial Infarction: No Radiation Therapy: No Sleep Apnea: No Thyroid Disease: No Past Surgical History Abdominal Surgery: Yes (APPEND., AORTIC STENT) AICD: No Appendectomy: Yes Arteriovenous Shunt: No Body Medical Devices: AORTIC STENT Cardiac Surgery: Yes (CABG X3) Coronary Artery Bypass Graft: Yes Eye Surgery: Yes (LILLIAM. LASER REP.. R CATARACT) Genitourinary Surgery: Yes (KIDNEY STONES) Insulin Pump: No Joint Replacement: No Neurologic Surgery: No Oral Surgery: Yes (TONSILS) Pacemaker: No Thoracic Surgery: No Tonsillectomy: Yes Other Surgery: Yes (KIDNEY STONE REMOVED SURGICALLY) Family History Family Myocardial Infarction: Yes Social History Alcohol Use: No Tobacco Use: No Substance Use: No Allergies-Medications (Allergen,Severity, Reaction): Coded Allergies: Iodinated Contrast- Oral and IV Dye (Verified Allergy, Severe, Hives, 02/18) penicillin G (Unverified Allergy, Severe, HIVES, 02/18/18) Reported Meds & Prescriptions Reported Meds & Active Scripts Active Miralax Powder (Polyethylene Glycol 3350 Powder) 17 Gm Powd 17 Gm PO DAILY Mix and dissolve one measuring cap-ful (17 grams) in water or juice. Aspirin 81 Mg Chew 81 Mg CHEW DAILY Lorazepam 0.5 Mg Tab 0.5 Mg PO DIRECTED PRN 1 tablet at bedtime as needed for sleep and 1 daily as needed for anxiety Triamcinolone Topical (Triamcinolone Acetonide) 0.1% Cream 1 Applic TOPICAL BID Nitrostat SL (Nitroglycerin) 0.4 Mg Subl 0.4 Mg SL DIRECTED PRN One tablet under tongue for angina as needed. Mupirocin Topical (Mupirocin) 2 % Oint 1 Applic TOPICAL BID Metoprolol Tartrate 50 Mg Tab 50 Mg PO BID Catapres (Clonidine) 0.2 Mg Tab 0.1 Mg PO BID Amaryl (Glimepiride) 1 Mg Tab 1 Mg PO DAILY Take with breakfast or first main meal Medical Compression Elastic Stockings 1 Mis Mis 1 Ea .ROUTE DIRECTED Wear to help with lower extremity edema Proscar (Finasteride) 5 Mg Tab 5 Mg PO DAILY Do not crush. Cozaar (Losartan Potassium) 100 Mg Tab 100 Mg PO DAILY Irma Contour Next Blood Test Strips (Blood Glucose Test Strips) 1 Darline Darline 1 Strip DAILY Atorvastatin (Atorvastatin Calcium) 20 Mg Tab 20 Mg PO HS Blood Glucose Test Strips 1 Darline Darline 1 Strips .ROUTE BID [Lancets] BID Reported Furosemide 40 Mg Tab 40 Mg PO DAILY Vitamin D3 (Cholecalciferol) 2,000 Unit Cap 2,000 Units PO DAILY Allopurinol 300 Mg Tab 300 Mg PO DAILY Pantoprazole (Pantoprazole Sodium) 40 Mg Tab 40 Mg PO DAILY Hydrocodone-Acetaminophen 7.5-325 mg Tab 1 Tab PO Q6H PRN Vitamin B-12 (Cyanocobalamin) 1,000 Mcg Tab 1,000 Mcg PO DAILY Review of Systems Except as stated in HPI: all other systems reviewed are Neg Physical Exam Narrative GENERAL: SKIN: Warm and dry. HEAD: Atraumatic. Normocephalic. EYES: Pupils equal and round. No scleral icterus. No injection or drainage. ENT: No nasal bleeding or discharge. Mucous membranes pink and moist. Tongue is midline. No uvula deviation. NECK: Trachea midline. No JVD. CARDIOVASCULAR: Regular rate and rhythm. No murmurs, S3, S4. RESPIRATORY: No accessory muscle use. Clear to auscultation. Breath sounds equal bilaterally. GASTROINTESTINAL: Abdomen soft, tender in the right lower quadrant, slightly distended. Hepatic and splenic margins not palpable. MUSCULOSKELETAL: Extremities without clubbing, cyanosis, or edema. No obvious deformities. Full range of motion of the upper and lower extremities bilaterally. NEUROLOGICAL: Awake and alert. No obvious cranial nerve deficits. Motor grossly within normal limits. Five out of 5 muscle strength in the arms and legs. Normal speech. PSYCHIATRIC: Appropriate mood and affect; insight and judgment normal. Data Data Last Documented VS Vital Signs Date Time Temp Pulse Resp B/P (MAP) Pulse Ox O2 Delivery O2 Flow Rate FiO2 02/18/18 22:06 108 18 177/79 (111) 94 Room Air 02/18/18 21:11 98.2 Orders Orders Complete Blood Count With Diff (02/18/18 22:) Comprehensive Metabolic Panel (02/18/18 22:) Lipase (02/18/18 22:09) Lactic Acid (02/18/18 22:09) Prothrombin Time / Inr (Pt) (02/18/18:) Act Partial Throm Time (Ptt) (02/18/18:) Urinalysis - C+S If Indicated (02/18/18 22:09) Ct Abd/Pel W/O Iv Contrast (02/18/18 22:09) Iv Access Insert/Monitor (02/18/18 22:09) Ecg Monitoring (02/18/18 22:) Oximetry (02/18/18 22:09) Metoclopramide Inj (Reglan Inj) (02/18/18 22:15) Electrocardiogram (02/18/18 ) Lorazepam Inj (Ativan Inj) (02/18/18 22:30) MDM Medical Decision Making Medical Screen Exam Complete: Yes Emergency Medical Condition: Yes Medical Record Reviewed: Yes Differential Diagnosis Obstruction versus ileus versus chronic pain versus acute on chronic pain versus diverticulitis versus chronic nausea versus now she will versus gastroenteritis versus gastroparesis Narrative Course 82-year-old male that presents to the ED for evaluation of right lower quadrant abdominal pain. Patient was properly examined and was found to have signs and symptoms of unclear etiology with deafly concerning for obstruction. Labs and imaging order. Case signed out to my attending pending disposition and plan. Pramod Culp February 18, 2018 22:23
[2018-02-18] MEDS ORDERED: LORazepam 2 MG/ML VIAL IV PUSH ONE (22:30)
[2018-02-18 22:35] LABS: AUTOMATED NEUTROPHIL # 9.6 TH/MM3 (1.8-7.7); BASOPHIL # 0.1 TH/MM3 (0-0.2); BASOPHIL % 0.5 % (0.0-2.0); EOSINOPHIL % 0.2 % (0.0-4.0); HEMATOCRIT 33.6 % (39.0-51.0); HEMOGLOBIN 10.7 GM/DL (13.0-17.0); LYMPH % 2.4 % (9.0-44.0); LYMPHOCYTE # 0.2 TH/MM3 (1.0-4.8); MEAN CELL VOLUME 96.3 FL (80.0-100.0); MEAN CORPUSCULAR HEMOGLOBIN 30.7 PG (27.0-34.0); MEAN CORPUSCULAR HGB CONC 31.9 % (32.0-36.0); MEAN PLATELET VOLUME 9.4 FL (7.0-11.0); MONO % 3.4 % (0.0-8.0); MONOCYTE # 0.3 TH/MM3 (0-0.9); NEUT % 93.5 % (16.0-70.0); PLATELET COUNT 166 TH/MM3 (150-450); RED BLOOD COUNT 3.49 MIL/MM3 (4.50-5.90); RED CELL DISTRIBUTION WIDTH 18.6 % (11.6-17.2); WHITE BLOOD COUNT 10.2 TH/MM3 (4.0-11.0)
--- NOTE | 2018-02-18 22:45 | RADRPT ---
EXAM DATE/TIME: 02/18/2018 22:28 [facility] COMPARISON: CT ABDOMEN & PELVIS W/O CONTRAST, February 02, 2018, 3:28. INDICATIONS : Abdomen pain. ORAL CONTRAST: No oral contrast ingested. RADIATION DOSE: 15.27 CTDIvol (mGy) MEDICAL HISTORY : Aneurysm, abdominal. Hypertension. Cardiovascular diseaseRenal stones. SURGICAL HISTORY : CABG ENCOUNTER: Initial ACUITY: 1 day PAIN SCALE: 4/10 LOCATION: Bilateral abdomen TECHNIQUE: Volumetric scanning of the abdomen and pelvis was performed. Using automated exposure control and ad justment of the mA and/or kV according to patient size, radiation dose was kept as low as reasonably achievable to obtain optimal diagnostic quality images. DICOM format image data is available electro nically for review and comparison. FINDINGS: LOWER LUNGS: A moderate sized right pleural effusion with associated atelectasis has increased from the prior stud y. Moderate cardiomegaly without pericardial effusion. Significant coronary artery atherosclerotic ca lcifications. LIVER: Cirrhotic changes. Concern for low-density mass involving segment 7. This measures approximately 8 cm in diameter. It is difficult again accurate measurement given the lack of IV contrast and is vague m argination. No ductal dilatation. Gallbladder shows layering high-density material either related to sludge or stones. SPLEEN: Mild splenomegaly is stable from the prior exam. PANCREAS: Within normal limits. KIDNEYS: Normal in size and shape. There is no mass, stone, or hydronephrosis. ADRENAL GLANDS: Within normal limits. VASCULAR: Prior endovascular repair of a AAA. The [place] aneurysm sac is stable measuring 7 cm. BOWEL/MESENTERY: Small volume ascites largely centered around the liver and spleen. The volume is stable from the prio r study. No free air. Scattered colonic diverticuli without acute inflammation. Small bowel and stoma ch are unremarkable. Mesentery is unremarkable. ABDOMINAL WALL: There is an umbilical hernia that is broad-based in nature and contains fat. A small amount of fluid is within this as well. This is stable in appearance. RETROPERITONEUM: There is no lymphadenopathy. BLADDER: No wall thickening or mass. REPRODUCTIVE: Within normal limits. INGUINAL: There is no lymphadenopathy or hernia. MUSCULOSKELETAL: Within normal limits for patient age. CONCLUSION: 1. No acute abnormality to explain the patient's pain. 2. Cirrhosis with concern for right hepatic lobe mass measuring approximately 8 cm. MRI with gadolini um is suggested to further evaluate this lesion. Hepatocellular carcinoma is the chief concern. 3. Stable small volume ascites. 4. Umbilical hernia. 5. Cholelithiasis. José Miguel Rollins Jr., MD on February 18, 2018 at 22:37 Board Certified Radiologist. This report was verified electronically.
[2018-02-18 22:49] LABS: INTERNATIONAL NORMALIZED RATIO 1.2 RATIO
[2018-02-18 22:56] LABS: ALBUMIN 2.9 GM/DL (3.4-5.0); AST (GOT) 82 U/L (15-37); BICARBONATE 24.5 MEQ/L (21.0-32.0); BLOOD UREA NITROGEN 31 MG/DL (7-18); CALCIUM 9.6 MG/DL (8.5-10.1); CHLORIDE 104 MEQ/L (98-107); CREATININE 2.11 MG/DL (0.60-1.30); GLOMERULAR FILTRATION RATE 30 ML/MIN (>89); GLUCOSE,RANDOM 150 MG/DL (74-106); SODIUM (NA) 141 MEQ/L (136-145)
[2018-02-18 22:57] LABS: ALT (GPT) 23 U/L (12-78)
[2018-02-18 23:00] LABS: ALKALINE PHOSPHATASE 254 U/L (45-117); TOTAL PROTEIN 7.9 GM/DL (6.4-8.2)
[2018-02-18 23:39] LABS: BILIRUBIN, URINE MOD (NEG); BLOOD, URINE SMALL (NEG); GLUCOSE,URINE NEG (NEG); KETONE, URINE NEG (NEG); NITRITE,URINE NEG (NEG); URINE COLOR YELLOW (YELLW/STRAW); URINE LEUKOCYTE ESTERASE NEG (NEG)
[2018-02-18 23:45] VITALS: BP 139/93; PULSE 97; RESP 16; O2SAT 93
[2018-02-19] VITALS (9 sets, daily range): BP systolic 118–184; BP diastolic 59–95; PULSE 68–103; RESP 17–18; TEMP 97.2–98.8; O2SAT 91–94
[2018-02-19 00:03] LABS: HYALINE CAST, URINE 31 /lpf (RARE); MUCUS URINE FEW /lpf (OCC); SQUAMOUS EPITHELIAL CELL URINE 1 /hpf (0-5)
[2018-02-19] MEDS ORDERED: IBUPROFEN 400 MG TAB PO ONE (00:15)
--- NOTE | 2018-02-19 00:27 | HHI.HP ---
[facility] Service Family Medicine Primary Care Physician Fito Montgomery MD Admission Diagnosis Liver Mass Diagnoses: International Travel<30 Days: No Contact w/Intl Traveler<30days: No Known Affected Area: No History of Present Illness Patient w/hx of DM2 and chronic back pain presenting w/RUQ pain. PCP is Dr. Montgomery. Patient has poor health literacy/memory, seems confused at times. Patient has had severe nausea that has worsened but started 3 weeks ago. Has not been able to eat very much; has only been able to keep down toast and liquids during this time. Last ate hot tea with half piece of toast before coming to the hospital at 6 PM. No vomiting, dizziness, or hematemesis associated with the nausea. Has had a weight loss of about 18 pounds in the last 15 days (per chart documentation). Patient states that it is his nausea that has brought him to the hospital, grandson transported into the hospital at his request. He also reports that he has had back, hip, and shoulder pain that is chronic but has been worsening in the last couple days. Usually takes [place] 7.5-325 mg every 6 hours as needed for pain as a home medication, states however that this has not been improving his pain at all. The only thing that helps his pain is getting up and sitting in a chair. PCP is Dr. Moore. Patient was recently referred to pain management but has not seen them yet. He is usually able to walk only a couple steps before having to lean on a chair. Reports recent worsening abdominal distention most notable on the right side in the last 2 weeks. Denies shortness of breath. No diarrhea, bloody stools,lower extremity edema, or night sweats. No history of alcohol abuse. Patient states that his last drink was decades ago. Father from hepatic cancer. Was hospitalized in the hospital on the 02 of February for suspected ileus after day of being n.p.o. and on IV hydration. Was placed on Ofirmev 1 g IV every 6 hours for pain, however patient states that on his admission he received IV morphine which resolved his pain completely (he received IV morphine 1 in the ED). also had abdominal pain and back pain. Patient requested regular diet and requested to go home at the end of admission, stayed for 2 days. Review of Systems ROS Limitations: Poor Historian Constitutional: COMPLAINS OF: Weight loss, Change in appetite, DENIES: Fever, Night Sweats Eyes: DENIES: Eye inflammation, Eye pain Ears, nose, mouth, throat: DENIES: Hearing loss Respiratory: DENIES: Cough, Shortness of breath Cardiovascular: DENIES: Chest pain, Palpitations Gastrointestinal: DENIES: Constipation Genitourinary: DENIES: Urinary frequency, Urinary incontinence Musculoskeletal: DENIES: Muscle aches Integumentary: DENIES: Abnormal pigmentation Hematologic/lymphatic: DENIES: Bruising Neurologic: DENIES: Abnormal gait, Headache, Paresthesias Past Family Social History Past Medical History - ASHD - Type 2 DM - Hypertension - AAA - s/p endovascular repair 2012 - hyperlipidemia - hx gout, last episode [address] Mendes regularly for gout and arthritis - sub 5mm pulmonary nodule noted on chest CT 2007 (asbestos related pleural disease also suggested) - stable on serial CT's - hx thrombocyoptopenia (followed by Dr. Butts - imaging studies did show a component of cirrhosis) - portal hypertensive gastropathy - low serum B-12 level - iron deficiency anemia - CKD Stage 3, sees Dr. Ayala Past Surgical History - CABG - T&A - appendectomy - upper and lower endoscopy 11/20/12 - endovascular repair of AAA 2012 Reported Medications Reported Meds & Active Scripts Active Miralax Powder (Polyethylene Glycol 3350 Powder) 17 Gm Powd 17 Gm PO DAILY Mix and dissolve one measuring cap-ful (17 grams) in water or juice. Aspirin 81 Mg Chew 81 Mg CHEW DAILY Lorazepam 0.5 Mg Tab 0.5 Mg PO DIRECTED PRN 1 tablet at bedtime as needed for sleep and 1 daily as needed for anxiety Triamcinolone Topical (Triamcinolone Acetonide) 0.1% Cream 1 Applic TOPICAL BID Nitrostat SL (Nitroglycerin) 0.4 Mg Subl 0.4 Mg SL DIRECTED PRN One tablet under tongue for angina as needed. Mupirocin Topical (Mupirocin) 2 % Oint 1 Applic TOPICAL BID Metoprolol Tartrate 50 Mg Tab 50 Mg PO BID Catapres (Clonidine) 0.2 Mg Tab 0.1 Mg PO BID Amaryl (Glimepiride) 1 Mg Tab 1 Mg PO DAILY Take with breakfast or first main meal Medical Compression Elastic Stockings 1 Mis Mis 1 Ea .ROUTE DIRECTED Wear to help with lower extremity edema Proscar (Finasteride) 5 Mg Tab 5 Mg PO DAILY Do not crush. Cozaar (Losartan Potassium) 100 Mg Tab 100 Mg PO DAILY Imra Contour Next Blood Test Strips (Blood Glucose Test Strips) 1 Darline Darline 1 Strip DAILY Atorvastatin (Atorvastatin Calcium) 20 Mg Tab 20 Mg PO HS Blood Glucose Test Strips 1 Darline Darline 1 Strips .ROUTE BID [Lancets] BID Reported Furosemide 40 Mg Tab 40 Mg PO DAILY Vitamin D3 (Cholecalciferol) 2,000 Unit Cap 2,000 Units PO DAILY Allopurinol 300 Mg Tab 300 Mg PO DAILY Pantoprazole (Pantoprazole Sodium) 40 Mg Tab 40 Mg PO DAILY Hydrocodone-Acetaminophen 7.5-325 mg Tab 1 Tab PO Q6H PRN Vitamin B-12 (Cyanocobalamin) 1,000 Mcg Tab 1,000 Mcg PO DAILY Allergies: Coded Allergies: Iodinated Contrast- Oral and IV Dye (Verified Allergy, Severe, Hives, 02/18) penicillin G (Unverified Allergy, Severe, HIVES, 02/18/18) Family History Mother: Heart disease, diabetes, hypertension, depression Father: hepatic cancer Social History Marital Status: Living Situation: private home with Education: HS Work history: retired, [employer] Tobacco: none Alcohol: denies, last drink about 40 years ago Illicit drug use: none Physical Exam Vital Signs Vital Signs Date Time Temp Pulse Resp B/P (MAP) Pulse Ox O2 Delivery O2 Flow Rate FiO2 02/18/18 23:45 97 16 139/93 (108) 93 Room Air 02/18/18 22:06 108 18 177/79 (111) 94 Room Air 02/18/18 21:34 98 16 94 Room Air 02/18/18 21:11 98.2 108 22 162/72 (102) 95 Physical Exam GENERAL: This is a disheveled, elderly gentleman resting quietly in bed on his side, in no apparent distress. SKIN: Old bruise on the right extensor surface of the lower extremity noted. Cool and dry. No jaundice. HEAD: Atraumatic. Normocephalic. EYES: Pupils equal round and reactive. Extraocular motions intact. No scleral icterus. No injection or drainage. ENT: Nose without bleeding, purulent drainage or septal hematoma. Throat without erythema, tonsillar hypertrophy or exudate. Uvula midline. Airway patent. NECK: Trachea midline. Unable to appreciate JVD due to body habitus. CARDIOVASCULAR: Regular rate and rhythm without murmurs, gallops, or rubs. RESPIRATORY: Clear to auscultation. Breath sounds equal bilaterally. No crackles. GASTROINTESTINAL: Abdomen is distended, mainly tender in the right upper quadrant, but also endorses tenderness of the lower quadrants. Ascites with positive fluid wave. Possible hepatomegaly. Umbilical hernia noted. No caput medusa noted. MUSCULOSKELETAL: Extremities without clubbing, cyanosis, or edema. No rashes, lesions, or masses noted on the back and hips. No calf tenderness. No joint swelling or tenderness. NEUROLOGICAL: Awake and alert. Cranial nerves II through XII intact. Limited motor exam due to pain. Normal speech. Laboratory Laboratory Tests Test 02/18/18 22:19 02/18/18 23:25 White Blood Count 10.2 Red Blood Count 3.49 Hemoglobin 10.7 Hematocrit 33.6 Mean Corpuscular Volume 96.3 Mean Corpuscular Hemoglobin 30.7 Mean Corpuscular Hemoglobin Concent 31.9 Red Cell Distribution Width 18.6 Platelet Count 166 Mean Platelet Volume 9.4 Neutrophils (%) (Auto) 93.5 Lymphocytes (%) (Auto) 2.4 Monocytes (%) (Auto) 3.4 Eosinophils (%) (Auto) 0.2 Basophils (%) (Auto) 0.5 Neutrophils # (Auto) 9.6 Lymphocytes # (Auto) 0.2 Monocytes # (Auto) 0.3 Eosinophils # (Auto) 0.0 Basophils # (Auto) 0.1 CBC Comment DIFF FINAL Differential Comment Prothrombin Time 12.0 Prothromb Time International Ratio 1.2 Activated Partial Thromboplast Time 27.1 Blood Urea Nitrogen 31 Creatinine 2.11 Random Glucose 150 Total Protein 7.9 Albumin 2.9 Calcium Level 9.6 Alkaline Phosphatase 254 Aspartate Amino Transf (AST/SGOT) 82 Alanine Aminotransferase (ALT/SGPT) 23 Total Bilirubin 1.0 Sodium Level 141 Potassium Level 4.1 Chloride Level 104 Carbon Dioxide Level 24.5 Anion Gap 13 Estimat Glomerular Filtration Rate 30 Lactic Acid Level 1.7 Lipase 81 Urine Color YELLOW Urine Turbidity CLEAR Urine pH 5.0 Urine Specific [place] 1.027 Urine Protein 300 OR GREATER Urine Glucose (UA) NEG Urine Ketones NEG Urine Occult Blood SMALL Urine Nitrite NEG Urine Bilirubin MOD Urine Urobilinogen 1.0 Urine Leukocyte Esterase NEG Urine RBC 8 Urine WBC 2 Urine Squamous Epithelial Cells 1 Urine Hyaline Casts 31 Urine Mucus FEW Microscopic Urinalysis Comment CULT NOT INDICATED Result Diagram: 02/18/18221802/18/182218 Imaging Last 24 hours Impressions Abdomen/Pelvis CT 02/18/182208 Signed Impressions: Service Date/Time: Sunday, February 18, 2018 22:28 - CONCLUSION: 1. No acute abnormality to explain the patient's pain. 2. Cirrhosis with concern for right hepatic lobe mass measuring approximately 8 cm. MRI with gadolinium is suggested to further evaluate this lesion. Hepatocellular carcinoma is the chief concern. 3. Stable small volume ascites. 4. Umbilical hernia. 5. Cholelithiasis. José Miguel Rollins Jr., MD Course Received Reglan 5 mg IV 1 in the ED, ibuprofen 400 mg p.o. 1, Ativan 2 mg IV 1. Caprini VTE Risk Assessment Caprini VTE Risk Assessment: Mod/High Risk (score >= 2) Assessment and Plan Assessment and Plan Patient is an 82-year-old male with a history of chronic back pain, diabetes mellitus 2, chronic kidney disease stage III admitted to observation for hepatic mass. Patient history with weight loss and severe nausea, CT imaging showing 8 cm hepatic lobe mass - CT imaging from February 02 shows ascites and cirrhosis, but no mass, only "greater than 7 cm aortic aneurysm w/endovascular repair noted". The recent finding, in addition to elevated alk phos raises suspicion of hepatic cancer. Unable to order MRI with gadolinium due to patient 's history of chronic kidney disease and low creatinine clearance (14). Ultrasound of the liver was ordered. Patient may require radiologically guided liver biopsy, especially to confirm the diagnosis of metastatic disease; however further imaging will likely need to be done to classify the mass before proceeding. GI has been consulted and other laboratory markers have been ordered. Code Status FULL Problem List: (1) Liver mass ICD Codes: R16.0 - Hepatomegaly, not elsewhere classified Plan: 8 [address] mass noted on CT, with cirrhosis and stable small volume ascites Patient received ibuprofen 1 in the ED Order liver ultrasound Check AFP, hepatitis panel, CA 19-9 Order ammonia Recheck CMP later this morning, avoid all hepatotoxic medication (home medication of aspirin and atorvastatin held) Resume home medications of furosemide 40 mg p.o. daily Consult gastroenterology Tylenol (pain 1-2), Percocet (3-5,6-10) for pain Morphine for breakthrough or intractable pain Caution with fluid overload, IV fluid has been provided at half maintenance rate (2) Cirrhosis ICD Codes: K74.60 - Unspecified cirrhosis of liver Plan: Possible etiologies/other differential for cirrhosis: hepatitis versus nonalcoholic fatty liver disease versus hemochromatosis Associated with ascites, appears to be a small amount; however, patient may require paracentesis at some point if symptoms continue PT elevated at 12.0, rest of coagulation profile within normal limits AST mildly elevated 82 See above plan (3) Nausea ICD Codes: R11.0 - Nausea Plan: May be secondary to carcinoma Other possibilities: Ileus versus gastroparesis Provide Reglan 5 mg IV every 6 hours as needed (half the usual dose due to low clinical creatinine clearance) Full liquid diet IV fluids at half maintenance rate (4) Type II diabetes mellitus ICD Codes: E11.9 - Type 2 diabetes mellitus Status: Chronic Plan: Low-dose sliding scale insulin (5) Chronic kidney disease, stage III (moderate) ICD Codes: N18.3 - Chronic kidney disease, stage III (moderate) Plan: Follows with Dr. Ayala Associated with anemia and proteinuria BUN/creatinine appears to be at around baseline (30/2) GFR 30 Creatinine clearance of 14 Avoid contrast Avoid nephrotoxic medications Permanent Comment: Last Edited By: Elaina Shine on February 19, 2018 03:28 (6) Anxiety ICD Codes: F41.9 - Anxiety disorder, unspecified Plan: Continue Lorazepam 0.5 mg (BID) as needed: 1 tablet at bedtime as needed for sleep and when daily as needed for anxiety (7) Hypertension ICD Codes: I10 - Hypertension Status: Chronic Plan: Resume home medication of furosemide 40 mg p.o. daily, losartan 100 mg p.o. daily Change clonidine 0.1 mg p.o. twice daily home medication to as needed, may escalate for worsening blood pressure (8) Hyperlipidemia ICD Codes: E78.5 - Hyperlipidemia, unspecified Status: Chronic Plan: Atorvastatin held (9) Gout ICD Codes: M10.9 - Gout, unspecified Plan: Continue home allopurinol 300 mg daily (10) GERD (gastroesophageal reflux disease) ICD Codes: K21.9 - Gastro-esophageal reflux disease without esophagitis Plan: Continue home Protonix 40 mg p.o. daily Monitor for fevers, increased white count, worsening abdominal pain (11) Nutrition, metabolism, and development symptoms ICD Codes: R63.8 - Other symptoms and signs concerning food and fluid intake Plan: Fluids: Normal saline at 60 MLS per hour Electrolytes: Not indicated Nutrition: Full liquid diet DVT prophylaxis: Heparin twice daily, SCDs Physician Certification 2 Midnight Certification Type: Continued Stay Order for Inpatient Services The services are ordered in accordance with Medicare regulations or non- Medicare payer requirements, as applicable. In the case of services not specified as inpatient-only, they are appropriately provided as inpatient services in accordance with the 2-midnight benchmark. Estimated LOS (days): 2 2 days is the estimated time the patient will need to remain in the hospital, assuming treatment plan goals are met and no additional complications. Post-Hospital Plan: Not yet determined Problem Qualifiers (1) Type II diabetes mellitus: Qualified Codes: E11.8 - Type 2 diabetes mellitus with unspecified complications Elaina Shine MD R1 February 19, 2018 00:27
[2018-02-19] MEDS ORDERED: SODIUM CHLOR 0.9% 1000 ML INJ 1,000 ML IV SCH (02:12)
[2018-02-19] MEDS ORDERED: oxyCODONE/ACETAMINOPHEN 5 MG/325 MG TAB PO PRN (02:15)
[2018-02-19] MEDS ORDERED: NALOXONE HCL 0.4 MG/ML AMP IV PUSH PRN (02:15)
[2018-02-19] MEDS ORDERED: METOCLOPRAMIDE HCL 10 MG/2 ML VIAL IV PUSH PRN ×2 (02:15→08:15)
[2018-02-19] MEDS ORDERED: SODIUM CHLORIDE 0.9% FLUSH 10 ML FLUSH IV FLUSH PRN (02:15)
[2018-02-19] MEDS ORDERED: MORPHINE SULFATE 4 MG/ML INJ IV PRN ×2 (02:30)
[2018-02-19] MEDS ORDERED: NITROGLYCERIN 0.4 MG SL 25 TABS/BTL SL PRN (02:30)
[2018-02-19] MEDS ORDERED: cloNIDine HCL 0.2 MG TAB PO SCH ×2 (02:30→09:00)
--- NOTE | 2018-02-19 03:26 | RADRPT ---
EXAM DATE/TIME: 02/19/2018 02:38 [place] COMPARISON: CT ABDOMEN & PELVIS W/O CONTRAST, February 18, 2018, 22:28. INDICATIONS : Patient with abdomen pain and abnormal abdomen CT demonstrating a questionable 8 cm right lobe mass.. MEDICAL HISTORY : Myocardial infarction. Hypercholesterolemia. Hypertension. Hearing aids. Dentures. Coronary artery di sease. Gastroesophageal reflux disease. Renal disease. Anxiety. SURGICAL HISTORY : Tonsillectomy. CABG. Appendectomy. Bilateral cataract removal. Aortic stent. Kidney stone removed. ENCOUNTER: Initial ACUITY: 4-6 days PAIN SCORE: 4/10 LOCATION: Bilateral upper quadrant MEASUREMENTS: LIVER: 18.6 cm length COMMON DUCT: 6 mm RIGHT KIDNEY: 10.1 x 4.2 x 4.6 cm SPLEEN: 14.7 cm length FINDINGS: LIVER: The liver is enlarged and heterogeneous with strut like appearance with lobular contour and surroundi ng ascitic fluid. There is no distinct focal mass identified. There was no abnormal color flow. COMMO N DUCT: No intraluminal mass or stone visualized. GALLBLADDER: Contains no stones, demonstrates no wall thickening or pericholecystic fluid. Sludge is noted layeri ng dependently in the gallbladder. PANCREAS: The visualized portions are within normal limits. RIGHT KIDNEY: No hydronephrosis, stone or mass. SPLEEN: Enlarged with no focal lesions. Bilateral pleural effusions are present. CONCLUSION: 1. The liver is cirrhotic and heterogeneous. No distinct focal mass is identified by ultrasound. 2. Ascites and bilateral pleural effusions. 3. Sludge is noted layering dependently in the gallbladder with no distinct stones. 4. Mild splenomegaly with no focal lesions. Alonso Ac MD on February 19, 2018 at 3:21 Board Certified Radiologist. This report was verified electronically.
[2018-02-19] MEDS: LORazepam 0.5 MG TAB PO PRN ×2 (03:40→23:59)
[2018-02-19] MEDS: oxyCODONE/ACETAMINOPHEN 10 MG/325 MG TAB PO PRN ×4 (03:41→23:59)
[2018-02-19 06:18] LABS: HEMATOCRIT 29.9 % (39.0-51.0); HEMOGLOBIN 9.6 GM/DL (13.0-17.0); MEAN CELL VOLUME 96.5 FL (80.0-100.0); MEAN CORPUSCULAR HEMOGLOBIN 31.1 PG (27.0-34.0); MEAN CORPUSCULAR HGB CONC 32.2 % (32.0-36.0); MEAN PLATELET VOLUME 9.1 FL (7.0-11.0); PLATELET COUNT 115 TH/MM3 (150-450); RED CELL DISTRIBUTION WIDTH 18.8 % (11.6-17.2); WHITE BLOOD COUNT 6.6 TH/MM3 (4.0-11.0)
[2018-02-19 06:50] LABS: ALBUMIN 2.6 GM/DL (3.4-5.0); AST (GOT) 69 U/L (15-37); BICARBONATE 25.1 MEQ/L (21.0-32.0); BLOOD UREA NITROGEN 31 MG/DL (7-18); CALCIUM 9.4 MG/DL (8.5-10.1); CHLORIDE 107 MEQ/L (98-107); CREATININE 1.95 MG/DL (0.60-1.30); GLOMERULAR FILTRATION RATE 33 ML/MIN (>89); GLUCOSE,RANDOM 104 MG/DL (74-106); SODIUM (NA) 144 MEQ/L (136-145)
[2018-02-19 06:54] LABS: ALKALINE PHOSPHATASE 213 U/L (45-117); ALT (GPT) 20 U/L (12-78); TOTAL BILIRUBIN ADULT 0.7 MG/DL (0.2-1.0); TOTAL PROTEIN 6.8 GM/DL (6.4-8.2)
--- NOTE | 2018-02-19 07:26 | HHI.FPPN ---
Subjective Remarks This progress note is written in conjunction with resident H&P dated 02/19/2018. Steven Ribera is an 82yo gentleman admitted for nausea and RUQ pain and 8cm liver mass noted on CT abdomen. Symptoms initially began 3 weeks ago, with nausea that has been worsening. No hematemesis, no vomiting, but decreased PO intake due to nausea. + weight loss of roughly 18 pounds in two weeks. + abdominal distention. In addition, his chronic hip, back, and shoulder pain has worsened over the past few days despite taking his routinely prescribed [place] 7.5mg. This morning, he reports that his nausea is improved. He is tolerating full liquid diet. He expresses understanding regarding the mass in his liver and that there is concern in light of this, his family history, and CA 19-9 elevation that there may be malignancy. He reports that he is amenable to biopsy and to upper/lower endoscopy, but he is not interested in treatment at this time with surgery, chemotherapy, or radiation. 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 He expresses understanding of his clinical course. ROS: Per resident H&P and as above in HPI. Nausea is improved. PMH/PSxH/SocHx/FamHx: Per resident H&P. Significant for: CAD, type 2 DM, AAA s/ p endovascular repair 2012, cirrhosis, thrombocytopenia, hypertension, CKD stage 3. CABG, AAA repair, appy, panendoscopy 2012 which demonstrated 5 colon polyps and portal hypertensive gastropathy. Father from hepatic cancer. . Quit alcohol 40 years ago. No tobacco. Objective Vitals Vital Signs Date Time Temp Pulse Resp B/P (MAP) Pulse Ox O2 Delivery O2 Flow Rate FiO2 02/19/18 04:00 98.8 92 18 169/85 (113) 93 02/19/18 03:08 02/19/18 02:54 100 18 161/95 (117) 92 Room Air 02/19/18 02:46 94 02/19/18 00:47 103 18 154/77 (102) 93 Room Air 02/19/18 00:34 94 18 184/77 (112) 94 Room Air 02/18/18 23:45 97 16 139/93 (108) 93 Room Air 02/18/18 22:06 108 18 177/79 (111) 94 Room Air 02/18/18 21:34 98 16 94 Room Air 02/18/18 21:11 98.2 108 22 162/72 (102) 95 I/O 02/18/18 02/18/18 02/18/18 02/19/18 02/19/18 02/19/18 07:00 15:00 23:00 07:00 15:00 23:00 Intake Total 240 ml Balance 240 ml Intake Oral 240 ml # Voids 0 Result Diagram: 02/19/1860402/19/18604 Objective Remarks As per resident H&P. Significant for: In NAD, no resp distress, nontoxic. Sitting comfortably in hospital bed. No jaundice. 2/6 systolic murmur, heard at left upper sternal border. No radiation of murmur. CTAB. No CVAT. + ascites. Abdomen is nontender. No discrete liver mass palpable. No significant edema. A/P Assessment and Plan Patient is an 82-year-old male with a history of chronic back pain, diabetes mellitus 2, chronic kidney disease stage III admitted to observation for hepatic mass. Patient history with weight loss and severe nausea, CT imaging showing 8 cm hepatic lobe mass. Attending Attestation The patient has been seen and examined. The chart and all resident notes have been reviewed. I agree that inpatient care is appropriate and that a two midnight stay is expected for the reasons documented in the resident history and physical. I have discussed this with the resident and certify the resident s order for inpatient admission. Problem List: (1) Liver mass ICD Codes: R16.0 - Hepatomegaly, not elsewhere classified Plan: 8 cm mass noted on CT, with cirrhosis and stable small volume ascites. Concerning for malignancy, with presentation of weight loss, new mass on CT abdomen, and CA 19-9 that is elevated. Liver US: Does not identify discrete mass. AFP: normal Ammonia: normal Hepatitis panel: negative CA 19-9: 1288 GI has been consulted; appreciate recs. Will contact radiology, to determine if further imaging is warranted vs biopsy indicated. Discussed with patient that there is a possibility this is malignant. Pt expressed understanding. He reports that he is amenable to biopsy and panendoscopy, but is not interested in curative treatment (surgery, chemo, XRT) should this be malignant. He is adamant that he does not want an MRI due to anxiety, claustrophobia. (2) Cirrhosis ICD Codes: K74.60 - Unspecified cirrhosis of liver Plan: Possible etiologies/other differential for cirrhosis: hepatitis versus nonalcoholic fatty liver disease versus hemochromatosis versus heart failure. Associated with ascites, appears to be a small amount; however, patient may require paracentesis at some point if symptoms continue or for diagnosis (check cytology in ascitic fluid). PT elevated at 12.0, rest of coagulation profile within normal limits AST mildly elevated 82 See above plan (3) Nausea ICD Codes: R11.0 - Nausea Status: Resolved Plan: May be secondary to carcinoma Other possibilities: Ileus versus gastroparesis Provide Reglan 5 mg IV every 6 hours as needed (half the usual dose due to low clinical creatinine clearance) Full liquid diet; advance as tolerated once seen by GI, in case of anticipated procedure. (4) Type II diabetes mellitus ICD Codes: E11.9 - Type 2 diabetes mellitus Status: Chronic Plan: Low-dose sliding scale insulin (5) Chronic kidney disease, stage III (moderate) ICD Codes: N18.3 - Chronic kidney disease, stage III (moderate) Status: Chronic Plan: Follows with Dr. Ayala Associated with anemia and proteinuria BUN/creatinine appears to be at around baseline (30/2) GFR 30 Creatinine clearance of 14 Avoid contrast Avoid nephrotoxic medications; renally dose medications Permanent Comment: Last Edited By: Elaina Shine on February 19, 2018 03:28 (6) Anxiety ICD Codes: F41.9 - Anxiety disorder, unspecified Status: Chronic Plan: Continue home regimen of Lorazepam 0.5 mg (BID) as needed: 1 tablet at bedtime as needed for sleep and when daily as needed for anxiety (7) Hypertension ICD Codes: I10 - Hypertension Status: Chronic Plan: Resume home medication of furosemide 40 mg p.o. daily, losartan 100 mg p.o. daily Change clonidine 0.1 mg p.o. twice daily home medication to as needed, may escalate for worsening blood pressure (8) Hyperlipidemia ICD Codes: E78.5 - Hyperlipidemia, unspecified Status: Chronic Plan: Atorvastatin held at admission. Will restart at discharge. (9) Gout ICD Codes: M10.9 - Gout, unspecified Status: Chronic Plan: Continue home allopurinol 300 mg daily. (10) GERD (gastroesophageal reflux disease) ICD Codes: K21.9 - Gastro-esophageal reflux disease without esophagitis Status: Chronic Plan: Continue home Protonix 40 mg p.o. daily. Symptoms of nausea have improved. (11) Iron deficiency anemia ICD Codes: D50.9 - Iron deficiency anemia, unspecified Status: Chronic Plan: Pt with colon polyps, seen on 2013 scope. Hemodynamically stable. Continue to monitor H/H. Problem Qualifiers (1) Cirrhosis: Qualified Codes: K74.60 - Unspecified cirrhosis of liver; R18.8 - Other ascites (2) Type II diabetes mellitus: Qualified Codes: E11.8 - Type 2 diabetes mellitus with unspecified complications (3) Hypertension: Qualified Codes: I10 - Essential (primary) hypertension (4) Hyperlipidemia: Qualified Codes: E78.2 - Mixed hyperlipidemia (5) Gout: (6) GERD (gastroesophageal reflux disease): Qualified Codes: K21.9 - Gastro-esophageal reflux disease without esophagitis (7) Iron deficiency anemia: Qualified Codes: D50.0 - Iron deficiency anemia secondary to blood loss ( chronic) Sarah Bear MD February 19, 2018 07:26
[2018-02-19] MEDS: LOSARTAN 50 MG TAB PO SCH (07:53)
[2018-02-19] MEDS: FUROSEMIDE 40 MG TAB PO SCH (07:54)
[2018-02-19] MEDS: FINASTERIDE 5 MG TAB PO SCH (07:54)
[2018-02-19] MEDS: ALLOPURINOL 300 MG TAB PO SCH (07:54)
[2018-02-19] MEDS: INSULIN ASPART SUPPLEMENTAL SCALE SQ SCH ×4 (07:54→19:55)
[2018-02-19] MEDS: PANTOPRAZOLE SOD 40 MG DELAYED RELEASE TAB PO SCH (07:54)
[2018-02-19] MEDS: METOPROLOL TARTRATE 50 MG TAB PO SCH ×2 (07:54→19:39)
[2018-02-19] MEDS: SODIUM CHLORIDE 0.9% FLUSH 10 ML FLUSH IV FLUSH SCH ×2 (07:55→19:41)
[2018-02-19] MEDS ORDERED: HEPARIN SODIUM - SQ 10,000 UNITS/ML VIAL SQ SCH (09:00)
[2018-02-19] MEDS ORDERED: cloNIDine HCL 0.2 MG TAB PO PRN (09:00)
--- NOTE | 2018-02-19 13:36 | RADRPT ---
EXAM DATE: 02/19/2018 1:06 PM EDT AGE/SEX: 82 years / Male INDICATIONS: Shortness of breath; Cardiac disease. CLINICAL DATA: This is the patient's initial encounter. Patient reports that signs and symptoms have been present for 1 day and indicates a pain score of 0/10. MEDICAL/SURGICAL HISTORY: . Myocardial infarction. Hypercholesterolemia. Hypertension. Coronary artery disease. . CABG. Appendectomy. Aortic stent. COMPARISON: [facility] [place], 02/05/2013. . FINDINGS: There is a new patchy infiltrate in the right lower lung. There is blunting of the right c ostophrenic angle suggestive of a small effusion. The left lung is clear with 2 stable calcified gran ulomas in the left upper lung. The heart size is enlarged but stable. There is evidence of previous c ardiothoracic surgery. There is evidence of pulmonary venous congestion. The bony structures are stab le. CONCLUSION: 1. New patchy infiltrate with small effusion in the right lower lung. 2. Pulmonary venous congestion. 3. Stable cardiomegaly and evidence of previous granulomatous disease. Electronically signed by: Randy Johnson MD 02/19/2018 1:34 PM EDT
--- NOTE | 2018-02-19 13:55 | HHI.PR ---
Addendum to Inpatient Note Addendum Reason: Additional Documentation Additional Information Called patient's Vee at [phone] to update her on her 's work up and plan of care thus far. I said I would call her when we have more information. Alonso Cerda MD R2 February 19, 2018 13:55
[2018-02-19 15:28] LABS: INTERNATIONAL NORMALIZED RATIO 1.3 RATIO; PROTHROMBIN TIME - PATIENT 12.8 SEC (9.8-11.6)
--- NOTE | 2018-02-19 15:42 | PD.CONS ---
HPI History of Present Illness This is a 82 year old male with CKDIII who presented with nausea, abd pain, weight loss. He has lost over 20 lbs in the last 3 months. he started having abd pain 7 weeks ago. in the lower abd. He was admitted to 02/04 for vomiting and abd pain and felt ok when he was discharged but the pain returned. he says he has claus in his back and his RUQ. Denies n/v, blood in stool, black tarry stool. CT abd with no contrast showed cirrhosis with concern for right liver mass 8cm, stable small ascites. (Allyson Bertrand) PFSH Past Medical History DM CKDIII HTN Past Surgical History AAA repair CABG appendectomy (Allyson Bertrand) Coded Allergies: Iodinated Contrast- Oral and IV Dye (Verified Allergy, Severe, Hives, 02/18) penicillin G (Unverified Allergy, Severe, HIVES, 02/18/18) Family History father - liver ca mother - CVD, DM, HTN Social History no etoh quit smoking 32 y ago (Allyson Bertrand) Review of Systems Constitutional: COMPLAINS OF: Fatigue, Weight loss Endocrine: DENIES: Polydipsia Eyes: DENIES: Blurred vision Ears, nose, mouth, throat: DENIES: Hearing loss Respiratory: DENIES: Wheezing Cardiovascular: DENIES: Chest pain Gastrointestinal: COMPLAINS OF: Abdominal pain, Swelling of Abdomen, DENIES: Black stools, Bloody stools, Diarrhea, Nausea, Vomiting Genitourinary: DENIES: Hematuria Musculoskeletal: DENIES: Joint pain Integumentary: DENIES: Abnormal pigmentation Hematologic/lymphatic: DENIES: Bruising Immunologic/allergic: DENIES: Eczema Neurologic: DENIES: Headache Psychiatric: DENIES: Confusion (Allyson Bertrand) GI Exam Vitals I&O Vital Signs Date Time Temp Pulse Resp B/P (MAP) Pulse Ox O2 Delivery O2 Flow Rate FiO2 02/19/18 12:00 97.8 77 18 147/68 (94) 92 02/19/18 11:45 18 02/19/18 08:00 97.2 98 18 144/68 (93) 91 02/19/18 04:00 98.8 92 18 169/85 (113) 93 02/19/18 03:08 02/19/18 02:54 100 18 161/95 (117) 92 Room Air 02/19/18 02:46 94 02/19/18 00:47 103 18 154/77 (102) 93 Room Air 02/19/18 00:34 94 18 184/77 (112) 94 Room Air 02/18/18 23:45 97 16 139/93 (108) 93 Room Air 02/18/18 22:06 108 18 177/79 (111) 94 Room Air 02/18/18 21:34 98 16 94 Room Air 02/18/18 21:11 98.2 108 22 162/72 (102) 95 I/O 02/18/18 02/18/18 02/18/18 02/19/18 02/19/18 02/19/18 07:00 15:00 23:00 07:00 15:00 23:00 Intake Total 240 ml Balance 240 ml Intake Oral 240 ml # Voids 0 Imaging Last Impressions Liver Ultrasound 02/19/18 0000 Signed Impressions: Service Date/Time: Monday, February 19, 2018 02:38 - CONCLUSION: 1. The liver is cirrhotic and heterogeneous. No distinct focal mass is identified by ultrasound. 2. Ascites and bilateral pleural effusions. 3. Sludge is noted layering dependently in the gallbladder with no distinct stones. 4. Mild splenomegaly with no focal lesions. Alonso Ac MD Chest X-Ray 02/19/18 0000 Signed Impressions: CONCLUSION: Abdomen/Pelvis CT 02/18/182208 Signed Impressions: Service Date/Time: Sunday, February 18, 2018 22:28 - CONCLUSION: 1. No acute abnormality to explain the patient's pain. 2. Cirrhosis with concern for right hepatic lobe mass measuring approximately 8 cm. MRI with gadolinium is suggested to further evaluate this lesion. Hepatocellular carcinoma is the chief concern. 3. Stable small volume ascites. 4. Umbilical hernia. 5. Cholelithiasis. José Miguel Rollins Jr., MD Laboratory Test 02/18/18 22:19 02/18/18 23:25 02/19/18 06:05 02/19/18 08:50 White Blood Count 10.2 TH/MM3 6.6 TH/MM3 Red Blood Count 3.49 MIL/MM3 3.10 MIL/MM3 Hemoglobin 10.7 GM/DL 9.6 GM/DL Hematocrit 33.6 % 29.9 % Mean Corpuscular Volume 96.3 FL 96.5 FL Mean Corpuscular Hemoglobin 30.7 PG 31.1 PG Mean Corpuscular Hemoglobin Concent 31.9 % 32.2 % Red Cell Distribution Width 18.6 % 18.8 % Platelet Count 166 TH/MM3 115 TH/MM3 Mean Platelet Volume 9.4 FL 9.1 FL Neutrophils (%) (Auto) 93.5 % Lymphocytes (%) (Auto) 2.4 % Monocytes (%) (Auto) 3.4 % Eosinophils (%) (Auto) 0.2 % Basophils (%) (Auto) 0.5 % Neutrophils # (Auto) 9.6 TH/MM3 Lymphocytes # (Auto) 0.2 TH/MM3 Monocytes # (Auto) 0.3 TH/MM3 Eosinophils # (Auto) 0.0 TH/MM3 Basophils # (Auto) 0.1 TH/MM3 CBC Comment DIFF FINAL Differential Comment Prothrombin Time 12.0 SEC Prothromb Time International Ratio 1.2 RATIO Activated Partial Thromboplast Time 27.1 SEC Blood Urea Nitrogen 31 MG/DL 31 MG/DL Creatinine 2.11 MG/DL 1.95 MG/DL Random Glucose 150 MG/DL 104 MG/DL Total Protein 7.9 GM/DL 6.8 GM/DL Albumin 2.9 GM/DL 2.6 GM/DL Calcium Level 9.6 MG/DL 9.4 MG/DL Alkaline Phosphatase 254 U/L 213 U/L Aspartate Amino Transf (AST/SGOT) 82 U/L 69 U/L Alanine Aminotransferase (ALT/SGPT) 23 U/L 20 U/L Total Bilirubin 1.0 MG/DL 0.7 MG/DL Sodium Level 141 MEQ/L 144 MEQ/L Potassium Level 4.1 MEQ/L 4.0 MEQ/L Chloride Level 104 MEQ/L 107 MEQ/L Carbon Dioxide Level 24.5 MEQ/L 25.1 MEQ/L Anion Gap 13 MEQ/L 12 MEQ/L Estimat Glomerular Filtration Rate 30 ML/MIN 33 ML/MIN Lactic Acid Level 1.7 mmol/L Lipase 81 U/L Urine Color YELLOW Urine Turbidity CLEAR Urine pH 5.0 Urine Specific [place] 1.027 Urine Protein 300 OR GREATER mg/dL Urine Glucose (UA) NEG mg/dL Urine Ketones NEG mg/dL Urine Occult Blood SMALL Urine Nitrite NEG Urine Bilirubin MOD Urine Urobilinogen 1.0 MG/DL Urine Leukocyte Esterase NEG Urine RBC 8 /hpf Urine WBC 2 /hpf Urine Squamous Epithelial Cells 1 /hpf Urine Hyaline Casts 31 /lpf Urine Mucus FEW /lpf Microscopic Urinalysis Comment CULT NOT INDICATED Ammonia 26 MCMOL/L Tumor Marker Alpha Fetoprotein 7.0 NG/ML CA 19-9 Antigen 1288.4 U/ML Hepatitis A IgM Antibody NONREACTIVE Hepatitis B Surface Antigen NONREACTIVE Hepatitis B Core IgM Antibody NONREACTIVE Hepatitis C IgG Antibody NONREACTIVE Blood Smear Pathologist Review Test 02/19/18 14:57 Physical Examination HEENT: PERRL normocephalic; atraumatic; no jaundice. CHEST: crackles CARDIAC: RRR ABDOMEN: Soft, distended, RUQ TTP; no hepatosplenomegaly; bowel sounds are present in all four quadrants. EXTREMITIES: No clubbing, cyanosis, or edema. SKIN: Normal; no rash; no jaundice. BIZTALK ADMINISTRATOR: No focal deficits; alert and oriented times three. (Allyson Bertrand) Assessment and Plan Plan ASSESSMENT - abnormal imaging, elevated LFTs - CT no contrast showed liver mass 8cm, cirrhosis. US did not appreciate mass but did show cirrhosis, GB sludge, mild splenomegaly. CA 19-9 elevatd 1288. AFP WNL. pt denies significant etoh consumption LFTs do not show obstructive pattern. allergic to contrast. liver bx pending. hep panel neg. per attending note he would not be interested in terating a malignancy of the liver - weight loss - 20 lbs 3 months, unclear etiology. last EGD, colonoscopy 7y ago adn can recall no abnormal results ASSESSMENT - await liver bx - rest of liver w/u - supportive care pt seen by myself and Dr Foss and this note is on his behalf (Allyson Bertrand) Physician Comments Patient seen and examined Agree with above Continue with current supportive care Monitor labs Await liver biopsy Our biggest concern is that the CA 19-9 is significantly elevated to warrant an evaluation for pancreatic cancer and patient may require an MRI of the abdomen to further evaluate and/or endoscopic ultrasound (Jeff Foss MD) Allyson Bertrand February 19, 2018 15:42 Jeff Foss MD February 19, 2018 22:21
--- NOTE | 2018-02-19 16:28 | EKG ---
Date Performed: 02/18/2018 Time Performed: 22:42:23 PTAGE: 82 years EKG: ATRIAL FIBRILLATION WITH RAPID VENTRICULAR RESPONSE NONSPECIFIC ST & T-WAVE ABNORMALITY ABN ORMAL RHYTHM ECG compared to prior ekg, patient is now in atrial fibrillation with rapid ventricular response. PREVIOUS TRACING : 10/09/2015 04.05 DOCTOR: Rossy Rosenbaum Interpretating Date/Time 02/19/2018 16:27:12
--- NOTE | 2018-02-19 18:43 | PD ---
Data Data Last Documented VS Vital Signs Date Time Temp Pulse Resp B/P (MAP) Pulse Ox O2 Delivery O2 Flow Rate FiO2 02/19/18 00:47 103 18 154/77 (102) 93 Room Air 02/18/18 21:11 98.2 Orders Orders Complete Blood Count With Diff (02/18/18 22:09) Comprehensive Metabolic Panel (02/18/18 22:09) Lipase (02/18/18 22:09) Lactic Acid (02/18/18 22:09) Prothrombin Time / Inr (Pt) (02/18/18 22:09) Act Partial Throm Time (Ptt) (02/18/18 22:09) Urinalysis - C+S If Indicated (02/18/18 22:09) Ct Abd/Pel W/O Iv Contrast (02/18/18 22:09) Iv Access Insert/Monitor (02/18/18 22:09) Ecg Monitoring (02/18/18 22:09) Oximetry (02/18/18 22:09) Metoclopramide Inj (Reglan Inj) (02/18/18 22:15) Electrocardiogram (02/18/18 ) Lorazepam Inj (Ativan Inj) (02/18/18 22:30) Ibuprofen (Motrin) (02/19/18 00:15) Admit Order (Ed Use Only) (02/19/18 00:23) Place In Observation (02/19/18 ) Code Status (02/19/18 02:12) Vital Signs (Adult) Q4H (02/19/18 02:12) Activity Bed Rest With Brp (02/19/18 02:12) Intake + Output FIDE.QSHIFT (02/19/18 02:12) ^ Monitor (02/19/18 02:12) Diet Full Liquid (02/19/18 Breakfast) Sodium Chlor 0.9% 1000 Ml Inj (Ns 1000 M (02/19/18 02:12) Sodium Chloride 0.9% Flush (Ns Flush) (02/19/18 02:15) Sodium Chloride 0.9% Flush (Ns Flush) (02/19/18 09:00) Pantoprazole (Protonix) (02/19/18 09:00) Resp Pulse Oximetry (02/19/18 ) Consult Gastroenterology (02/19/18 ) Scd Bilateral/Knee High FIDE.BID (02/19/18 02:12) Metoclopramide Inj (Reglan Inj) (02/19/18 02:15) Heparin Inj (Heparin Inj) (02/19/18 09:00) Acetaminophen (Tylenol) (02/19/18 02:15) Oxycodone-Acetamin 5-325 Mg (Percocet (02/19/18 02:15) Oxycodone-Acetamin 10-325 Mg (Percocet 1 (02/19/18 02:15) Naloxone Inj (Narcan Inj) (02/19/18 02:15) Morphine Inj (Morphine Inj) (02/19/18 02:30) Morphine Inj (Morphine Inj) (02/19/18 02:30) Labs Laboratory Tests Test 02/18/18 22:19 02/18/18 23:25 White Blood Count 10.2 TH/MM3 Red Blood Count 3.49 MIL/MM3 Hemoglobin 10.7 GM/DL Hematocrit 33.6 % Mean Corpuscular Volume 96.3 FL Mean Corpuscular Hemoglobin 30.7 PG Mean Corpuscular Hemoglobin Concent 31.9 % Red Cell Distribution Width 18.6 % Platelet Count 166 TH/MM3 Mean Platelet Volume 9.4 FL Neutrophils (%) (Auto) 93.5 % Lymphocytes (%) (Auto) 2.4 % Monocytes (%) (Auto) 3.4 % Eosinophils (%) (Auto) 0.2 % Basophils (%) (Auto) 0.5 % Neutrophils # (Auto) 9.6 TH/MM3 Lymphocytes # (Auto) 0.2 TH/MM3 Monocytes # (Auto) 0.3 TH/MM3 Eosinophils # (Auto) 0.0 TH/MM3 Basophils # (Auto) 0.1 TH/MM3 CBC Comment DIFF FINAL Differential Comment Prothrombin Time 12.0 SEC Prothromb Time International Ratio 1.2 RATIO Activated Partial Thromboplast Time 27.1 SEC Blood Urea Nitrogen 31 MG/DL Creatinine 2.11 MG/DL Random Glucose 150 MG/DL Total Protein 7.9 GM/DL Albumin 2.9 GM/DL Calcium Level 9.6 MG/DL Alkaline Phosphatase 254 U/L Aspartate Amino Transf (AST/SGOT) 82 U/L Alanine Aminotransferase (ALT/SGPT) 23 U/L Total Bilirubin 1.0 MG/DL Sodium Level 141 MEQ/L Potassium Level 4.1 MEQ/L Chloride Level 104 MEQ/L Carbon Dioxide Level 24.5 MEQ/L Anion Gap 13 MEQ/L Estimat Glomerular Filtration Rate 30 ML/MIN Lactic Acid Level 1.7 mmol/L Lipase 81 U/L Urine Color YELLOW Urine Turbidity CLEAR Urine pH 5.0 Urine Specific [place] 1.027 Urine Protein 300 OR GREATER mg/dL Urine Glucose (UA) NEG mg/dL Urine Ketones NEG mg/dL Urine Occult Blood SMALL Urine Nitrite NEG Urine Bilirubin MOD Urine Urobilinogen 1.0 MG/DL Urine Leukocyte Esterase NEG Urine RBC 8 /hpf Urine WBC 2 /hpf Urine Squamous Epithelial Cells 1 /hpf Urine Hyaline Casts 31 /lpf Urine Mucus FEW /lpf Microscopic Urinalysis Comment CULT NOT INDICATED MDM Medical Record Reviewed: Yes Supervised Visit with ASIA: No Narrative Course During the course of the patient's emergency department visit, the patient's history, examination, and differential diagnosis were reviewed with the patient. The patient was placed on a cardiac exercise specialist with oximetry and frequent blood pressure monitoring. The patient had IV access obtained and blood work sent for analysis. Patient was initially managed by Pramod Culp, the physician data assistant. The patient's case was checked out to me at the conclusion of his shift. The patient presented with recurrent abdominal pain and bloating with nausea. The patient was recently seen for similar symptoms and had a CT scan of the abdomen pelvis that showed dilation of the stomach and proximal bowel. The patient was admitted to the hospital. The patient's symptoms improved and he was discharged home. The patient reports of recurrence of symptoms recently and underwent workup with Augustus along with further guidance by me as the patient's case was staffed with oh. The patient' s physical exam was remarkable for upper abdominal pain most prominent in the right upper quadrant compared to the left. The patient's laboratory studies were reviewed and remarkable for a white count of 10.2, hemoglobin 10.7, platelets 166 with neutrophils 93.5, CMP is remarkable for BUN of 31, creatinine 2.1 which is compared to prior values last at 45 and 2.25 respectively consistent with a history of renal insufficiency. Glucose was 150, AST 82, alk phos is elevated at 254, albumin 2.9, lipase within normal limits, PT 12.8, PTT 29.8, urinalysis shows 300 or greater protein 8 red blood cells otherwise unremarkable. Radiology studies were reviewed and remarkable for a CT scan of the abdomen and pelvis that shows cirrhosis with concern for right hepatic lobe mass measuring approximately 8 cm, MRI with gadolinium is 10. Hepatocellular carcinoma is a chief concern. Stable small volume ascites. Umbilical hernia, cholelithiasis is noted. A call was placed on the [facility] residents who are covering for this patient's primary care physician, Dr. Montgomery. The patient's results were discussed with the patient, including the plan of care. I explained that further testing and/ or monitoring is indicated based on the patient's history, examination, and/ or laboratory findings. Therefore, I recommended admission for additional evaluation. The patient expressed understanding and was agreeable with this plan. The patient was admitted to the hospital in stable condition and sent to a bed under the care of the family practice residents. Physician Communication Physician Communication The patient's case including history, pertinent physical examination findings, and laboratory studies were discussed with the family practice residents. It was agreed that the patient would be admitted to the the [facility] teaching service. Diagnosis Primary Impression: Abdominal pain Qualified Codes: R10.10 - Upper abdominal pain, unspecified Additional Impression: Liver mass, right lobe Admitting Information Admitting Physician Requests: Admit Poppy Lo MD February 19, 2018 18:43
[2018-02-20 00:01] VITALS: BP 159/70; PULSE 77; RESP 18; TEMP 97.3; O2SAT 94
[2018-02-20 04:00] VITALS: BP 163/72; PULSE 85; RESP 18; TEMP 97.6; O2SAT 93
[2018-02-20] MEDS: oxyCODONE/ACETAMINOPHEN 10 MG/325 MG TAB PO PRN ×2 (06:13→12:30)
[2018-02-20] MEDS: INSULIN ASPART SUPPLEMENTAL SCALE SQ SCH ×4 (07:46→19:54)
[2018-02-20] MEDS: ALLOPURINOL 300 MG TAB PO SCH ×2 (07:47→07:55)
[2018-02-20] MEDS: PANTOPRAZOLE SOD 40 MG DELAYED RELEASE TAB PO SCH ×2 (07:47→07:55)
[2018-02-20] MEDS: LOSARTAN 50 MG TAB PO SCH (07:54)
[2018-02-20] MEDS: METOPROLOL TARTRATE 50 MG TAB PO SCH ×2 (07:54→19:53)
[2018-02-20] MEDS: SODIUM CHLORIDE 0.9% FLUSH 10 ML FLUSH IV FLUSH SCH ×2 (07:55→19:53)
[2018-02-20] MEDS: FINASTERIDE 5 MG TAB PO SCH (07:55)
[2018-02-20] MEDS: FUROSEMIDE 40 MG TAB PO SCH (07:55)
[2018-02-20 08:00] VITALS: BP 157/75; PULSE 87; RESP 18; TEMP 97.7; O2SAT 95
--- NOTE | 2018-02-20 09:28 | HHI.FPPN ---
Subjective Remarks Patient c/o some right sided abdominal pain. He reported feeling weak and needed help to get from bed to chair. Discussed plan of care with patient. (Alonso Cerda MD R2) Objective Vitals Vital Signs Date Time Temp Pulse Resp B/P (MAP) Pulse Ox O2 Delivery O2 Flow Rate FiO2 02/20/18 08:00 97.7 87 18 157/75 (102) 95 02/20/18 07:40 Room Air 02/20/18 04:00 97.6 85 18 163/72 (102) 93 02/20/18 00:01 97.3 77 18 159/70 (99) 94 02/19/18 20:00 97.6 78 17 118/59 (78) 93 02/19/18 19:04 18 02/19/18 16:00 97.5 68 18 130/60 (83) 91 02/19/18 12:00 97.8 77 18 147/68 (94) 92 I/O 02/19/18 02/19/18 02/19/18 02/20/18 02/20/18 02/20/18 07:00 15:00 23:00 07:00 15:00 23:00 Intake Total 240 ml 480 ml 380 ml Output Total 6 ml Balance 240 ml 480 ml 374 ml Intake Oral 240 ml 480 ml 380 ml Output Urine Total 6 ml # Voids 0 3 # Bowel Movements 1 0 (Alonso Cerda MD R2) Result Diagram: 02/19/18 0605 02/19/18 0605 Imaging Last Impressions Liver Ultrasound 02/19/18 0000 Signed Impressions: Service Date/Time: Monday, February 19, 2018 02:38 - CONCLUSION: 1. The liver is cirrhotic and heterogeneous. No distinct focal mass is identified by ultrasound. 2. Ascites and bilateral pleural effusions. 3. Sludge is noted layering dependently in the gallbladder with no distinct stones. 4. Mild splenomegaly with no focal lesions. Alonso Ac MD Chest X-Ray 02/19/18 0000 Signed Impressions: CONCLUSION: Abdomen/Pelvis CT 02/18/182208 Signed Impressions: Service Date/Time: Sunday, February 18, 2018 22:28 - CONCLUSION: 1. No acute abnormality to explain the patient's pain. 2. Cirrhosis with concern for right hepatic lobe mass measuring approximately 8 cm. MRI with gadolinium is suggested to further evaluate this lesion. Hepatocellular carcinoma is the chief concern. 3. Stable small volume ascites. 4. Umbilical hernia. 5. Cholelithiasis. José Miguel Rollins Jr., MD Objective Remarks GENERAL: This is an elderly gentleman resting quietly in bed on his right side, in no apparent distress. SKIN: Cool and dry. No jaundice. HEAD: Atraumatic. Normocephalic. EYES: Pupils equal round and reactive. Extraocular motions intact. No scleral icterus. No injection or drainage. ENT: Nose without bleeding, purulent drainage or septal hematoma. MMM. Airway patent. NECK: Trachea midline. Unable to appreciate JVD due to body habitus. CARDIOVASCULAR: Regular rate and rhythm without murmurs, gallops, or rubs. RESPIRATORY: Clear to auscultation. Breath sounds equal bilaterally. No crackles. GASTROINTESTINAL: Abdomen is distended, tender to palpation of the right side of the abdomen at the level of the umbilicus. Ascites with positive fluid wave. Reducible umbilical hernia noted. No caput medusa or spider angiomata noted. MUSCULOSKELETAL: Extremities without clubbing, cyanosis, or edema. No calf tenderness. No joint swelling or tenderness. NEUROLOGICAL: Awake and alert. Cranial nerves II through XII grossly intact. Motor and sensation grossly intact. Normal speech. (Alonso Cerda MD R2) A/P Assessment and Plan Patient is an 82-year-old male with a history of chronic back pain, diabetes mellitus 2, chronic kidney disease stage III admitted to observation for right upper quadrant abdominal pain, found to have hepatic mass. Patient history of cirrhosis with weight loss, family history of hepatocellular carcinoma, CT imaging showing 8 cm hepatic lobe mass, laboratory analysis remarkable for greatly elevated CA-19-9. Discussed with radiologist. Plan to pursue CT- guided biopsy, physical therapy prior to discharge. Discharge Planning pending CT-guided biopsy, physical therapy prior to discharge. (Alonso Cerda MD R2) Attending Attestation Patient seen and examined, and discussed with resident team. I agree with assessment and management as documented and discussed with me. Pt seen around 10:30 this AM. He is tolerating diet. He reports mild abdominal pain. Plan for CT guided liver biopsy today. (However, pt refused this later in the day due to nausea - see resident addendum). Discussed with patient that some of this work up could be completed as an outpatient, once he is feeling better. (Sarah Bear MD) Problem List: (1) Liver mass ICD Codes: R16.0 - Hepatomegaly, not elsewhere classified Status: Acute Plan: 8 cm mass noted on CT, with cirrhosis and stable small volume ascites. Concerning for malignancy, with presentation of weight loss, new mass on CT abdomen, and CA 19-9 that is elevated. Liver US: Does not identify discrete mass. AFP: normal Ammonia: normal Hepatitis panel: negative CA 19-9: 1288 GI has been consulted; appreciate recs. d/w radiology, CT-guided biopsy indicated. Discussed with patient that there is a possibility this is malignant. Pt expressed understanding. He reports that he is amenable to biopsy and panendoscopy, but is not interested in curative treatment (surgery, chemo, XRT) should this be malignant. He is adamant that he does not want an MRI due to anxiety, claustrophobia. (2) Weakness ICD Codes: R53.1 - Weakness Status: Acute Plan: He reported feeling weak and needed help to get from bed to chair. -Physical therapy consult (3) Cirrhosis ICD Codes: K74.60 - Unspecified cirrhosis of liver Status: Chronic Plan: Possible etiologies/other differential for cirrhosis: hepatitis versus nonalcoholic fatty liver disease versus hemochromatosis versus heart failure. Associated with ascites, appears to be a small amount; however, patient may require paracentesis at some point if symptoms worsen or for diagnosis (check cytology in ascitic fluid). PT elevated at 12.0, rest of coagulation profile within normal limits AST mildly elevated 82 See above plan (4) Nausea ICD Codes: R11.0 - Nausea Status: Resolved Plan: May be secondary to carcinoma Other possibilities: Ileus versus gastroparesis Provide Reglan 5 mg IV every 6 hours as needed (half the usual dose due to low clinical creatinine clearance) Full liquid diet; advance as tolerated once seen by GI, in case of anticipated procedure. (5) Type II diabetes mellitus ICD Codes: E11.9 - Type 2 diabetes mellitus Status: Chronic Plan: Low-dose sliding scale insulin (6) Chronic kidney disease, stage III (moderate) ICD Codes: N18.3 - Chronic kidney disease, stage III (moderate) Status: Chronic Plan: Follows with Dr. Ayala Associated with anemia and proteinuria BUN/creatinine appears to be at around baseline (30/2) GFR 30 Creatinine clearance of 14 Avoid contrast Avoid nephrotoxic medications; renally dose medications Permanent Comment: Last Edited By: Elaina Shine on February 19, 2018 03:28 (7) Anxiety ICD Codes: F41.9 - Anxiety disorder, unspecified Status: Chronic Plan: Continue home regimen of Lorazepam 0.5 mg (BID) as needed: 1 tablet at bedtime as needed for sleep and when daily as needed for anxiety (8) Hypertension ICD Codes: I10 - Hypertension Status: Chronic Plan: Resume home medication of furosemide 40 mg p.o. daily, losartan 100 mg p.o. daily Change clonidine 0.1 mg p.o. twice daily home medication to as needed, may escalate for worsening blood pressure (9) Hyperlipidemia ICD Codes: E78.5 - Hyperlipidemia, unspecified Status: Chronic Plan: Atorvastatin held at admission. Will restart at discharge. (10) Gout ICD Codes: M10.9 - Gout, unspecified Status: Chronic Plan: Continue home allopurinol 300 mg daily. (11) GERD (gastroesophageal reflux disease) ICD Codes: K21.9 - Gastro-esophageal reflux disease without esophagitis Status: Chronic Plan: Continue home Protonix 40 mg p.o. daily. Symptoms of nausea have improved. (12) Iron deficiency anemia ICD Codes: D50.9 - Iron deficiency anemia, unspecified Status: Chronic Plan: Pt with colon polyps, seen on 2013 scope. Hemodynamically stable. Continue to monitor H/H. (Alonso Cerda MD R2) Problem Qualifiers (1) Cirrhosis: Qualified Codes: K74.60 - Unspecified cirrhosis of liver; R18.8 - Other ascites (2) Type II diabetes mellitus: Qualified Codes: E11.8 - Type 2 diabetes mellitus with unspecified complications (3) Hypertension: Qualified Codes: I10 - Essential (primary) hypertension (4) Hyperlipidemia: Qualified Codes: E78.2 - Mixed hyperlipidemia (5) Gout: (6) GERD (gastroesophageal reflux disease): Qualified Codes: K21.9 - Gastro-esophageal reflux disease without esophagitis (7) Iron deficiency anemia: Qualified Codes: D50.0 - Iron deficiency anemia secondary to blood loss ( chronic) Alonso Cerda MD R2 February 20, 2018 09:28 Sarah Bear MD February 20, 2018 21:24
[2018-02-20 12:00] VITALS: BP 153/72; PULSE 75; RESP 19; TEMP 97.6; O2SAT 92
[2018-02-20] MEDS ORDERED: MIDAZOLAM HCL 2 MG/2 ML VIAL ONE (14:11)
--- NOTE | 2018-02-20 14:25 | HHI.GIFU ---
Subjective Remarks Pt states he is not feeling well today Reports some nausea, some relief with medication Denies abdominal pain (Pili Sellers) Objective Vitals I&O Vital Signs Date Time Temp Pulse Resp B/P (MAP) Pulse Ox O2 Delivery O2 Flow Rate FiO2 02/20/18 12:00 97.6 75 19 153/72 (99) 92 02/20/18 08:00 97.7 87 18 157/75 (102) 95 02/20/18 07:40 Room Air 02/20/18 04:00 97.6 85 18 163/72 (102) 93 02/20/18 00:01 97.3 77 18 159/70 (99) 94 02/19/18 20:00 97.6 78 17 118/59 (78) 93 02/19/18 19:04 18 02/19/18 16:00 97.5 68 18 130/60 (83) 91 I/O 02/19/18 02/19/18 02/19/18 02/20/18 02/20/18 02/20/18 07:00 15:00 23:00 07:00 15:00 23:00 Intake Total 240 ml 480 ml 380 ml Output Total 6 ml Balance 240 ml 480 ml 374 ml Intake Oral 240 ml 480 ml 380 ml Output Urine Total 6 ml # Voids 0 3 # Bowel Movements 1 0 Laboratory Laboratory Tests Test 02/19/18 14:57 02/20/18 06:25 Prothrombin Time 12.8 Prothromb Time International Ratio 1.3 Activated Partial Thromboplast Time 29.8 Ferritin 171 Imaging Last Impressions Liver Ultrasound 02/19/18 0000 Signed Impressions: Service Date/Time: Monday, February 19, 2018 02:38 - CONCLUSION: 1. The liver is cirrhotic and heterogeneous. No distinct focal mass is identified by ultrasound. 2. Ascites and bilateral pleural effusions. 3. Sludge is noted layering dependently in the gallbladder with no distinct stones. 4. Mild splenomegaly with no focal lesions. Alonso Ac MD Chest X-Ray 02/19/18 0000 Signed Impressions: CONCLUSION: Abdomen/Pelvis CT 02/18/182208 Signed Impressions: Service Date/Time: Sunday, February 18, 2018 22:28 - CONCLUSION: 1. No acute abnormality to explain the patient's pain. 2. Cirrhosis with concern for right hepatic lobe mass measuring approximately 8 cm. MRI with gadolinium is suggested to further evaluate this lesion. Hepatocellular carcinoma is the chief concern. 3. Stable small volume ascites. 4. Umbilical hernia. 5. Cholelithiasis. José Miguel Rollins Jr., MD Physical Exam HEENT: Normocephalic; atraumatic CHEST: Even/unlabored CARDIAC: RRR ABDOMEN: Distended, soft, nontender, bowel sounds active EXTREMITIES: No clubbing, cyanosis, or edema. SKIN: Normal; no rash; no jaundice. REPAIR DEPARTMENT SUPERVISOR: Alert and oriented (Pili Sellers) Assessment and Plan Plan Assessment: - Cirrhosis with CT findings concerning for liver mass with elevated LFTs Pt denies known history of liver issues, no ETOH in 40 years LFTs (02/18) AST-82 ALT-23 Alk phos-254 T bili-1 CT abdomen and pelvis W/O contrast (02/18) --> Cirrhosis with concern for right hepatic lobe mass measuring approx 8cm. Stable small volume ascites. Umbilical hernia. Cholelithiasis US liver (02/19) The liver is cirrhotic and heterogeneous. No distinct focal mass is identified by US. Ascites and bilateral pleural effusions. Sludge is noted layering dependently in the gallbladder with no distinct stones. Mild splenomegaly with no focal lesions. AFP- 7 Hepatitis panel negative. Ferritin-171 States father of liver cancer, states father drank alcohol when he was young - Markedly elevated CA 19-9 -1288. Denies personal family history of pancreatic issues and family history of pancreatic cancer. - Weight loss - 20 lbs 3 months, unclear etiology. last EGD, colonoscopy 7y ago and patient is unsure of results ASSESSMENT - Liver biopsy pending - Liver work up pending, unclear etiology of cirrhosis - MR abdomen W & WO contrast (GFR-33) Discussed with radiology- will do thin cuts of pancreas and liver - Possible EUS depending on findings - Antiemetics as needed - Supportive care - Further recommendations based on clinical course and results of above Pt has been seen and examined by myself and Dr. Foss and this note is written on his behalf Patient has been seen and examined by myself and Dr. Foss and this note is written on his behalf (Pili Sellers) Physician Comments Patient seen and examined Agree with above Continue with current supportive care Monitor labs Await palliative care evaluation Possible endoscopic ultrasound (Jeff Foss MD) Pili Sellers February 20, 2018 14:25 Jeff Foss MD February 20, 2018 20:42
[2018-02-20] MEDS ORDERED: MIDAZOLAM HCL 5 MG/5 ML VIAL ONE (14:44)
[2018-02-20] MEDS ORDERED: fentaNYL CITRATE 250 MCG/5 ML AMP ONE (14:44)
--- NOTE | 2018-02-20 15:53 | HHI.PR ---
Addendum to Inpatient Note Addendum Reason: Additional Documentation Additional Information Nursing reported that patient refused liver biopsy earlier today because he was not feeling well. Patient c/o headache, back pain, nausea. Reglan doesn't seem to be helping much. Discussed that his nausea could be related to his pain medications. Gave patient option to go up or down on pain medication. He decided to go down on pain medication. D/w pt whether he could tolerate MRI. Discussed risks and benefits of IV contrast in the context of his decreased renal function. Patient reported previous non-specific adverse reaction to IV contrast. D/w pt whether he wanted biopsy, and whether he wanted to get it done as an inpatient or an outpatient. He did not know. He requested that I d/w his . She did not coal picker the phone x3. Left voicemail. -stopped Percocet, replaced with tramadol, cut morphine in half -added Zofran ODT -palliative consult Alonso Cerda MD R2 February 20, 2018 15:53
[2018-02-20 16:00] VITALS: BP 150/66; PULSE 78; RESP 19; TEMP 97.8; O2SAT 93
[2018-02-20] MEDS ORDERED: traMADol HCL 50 MG TAB PO PRN (16:00)
[2018-02-20] MEDS ORDERED: MORPHINE SULFATE 4 MG/ML INJ IV PRN (17:30)
[2018-02-20] MEDS: traMADol HCL 50 MG TAB PO PRN (19:53)
[2018-02-20 20:00] VITALS: BP 147/74; PULSE 83; RESP 18; TEMP 97.7; O2SAT 93
[2018-02-21] VITALS (14 sets, daily range): BP systolic 124–172; BP diastolic 64–96; PULSE 66–115; RESP 16–22; TEMP 97.3–99.1; O2SAT 92–98
[2018-02-21] MEDS: ONDANSETRON ODT 4 MG TAB PO PRN (01:56)
[2018-02-21] MEDS: traMADol HCL 50 MG TAB PO PRN ×3 (03:12→21:16)
[2018-02-21] MEDS: ACETAMINOPHEN 325 MG TAB PO PRN ×2 (05:12→11:02)
[2018-02-21 06:30] LABS: HEMATOCRIT 29.7 % (39.0-51.0); HEMOGLOBIN 9.4 GM/DL (13.0-17.0); MEAN CELL VOLUME 98.6 FL (80.0-100.0); MEAN CORPUSCULAR HEMOGLOBIN 31.3 PG (27.0-34.0); MEAN CORPUSCULAR HGB CONC 31.7 % (32.0-36.0); MEAN PLATELET VOLUME 9.4 FL (7.0-11.0); PLATELET COUNT 132 TH/MM3 (150-450); RED BLOOD COUNT 3.01 MIL/MM3 (4.50-5.90); RED CELL DISTRIBUTION WIDTH 18.5 % (11.6-17.2); WHITE BLOOD COUNT 8.4 TH/MM3 (4.0-11.0)
[2018-02-21 07:00] LABS: ALBUMIN 2.6 GM/DL (3.4-5.0); AST (GOT) 105 U/L (15-37); BLOOD UREA NITROGEN 31 MG/DL (7-18); CALCIUM 9.3 MG/DL (8.5-10.1); CHLORIDE 106 MEQ/L (98-107); CREATININE 2.02 MG/DL (0.60-1.30); GLOMERULAR FILTRATION RATE 32 ML/MIN (>89); GLUCOSE,RANDOM 134 MG/DL (74-106); SODIUM (NA) 143 MEQ/L (136-145)
[2018-02-21 07:02] LABS: ALT (GPT) 30 U/L (12-78)
[2018-02-21 07:04] LABS: ALKALINE PHOSPHATASE 269 U/L (45-117); TOTAL BILIRUBIN ADULT 0.7 MG/DL (0.2-1.0)
[2018-02-21] MEDS: INSULIN ASPART SUPPLEMENTAL SCALE SQ SCH ×4 (08:00→21:00)
[2018-02-21 08:03] LABS: LYMPHOCYTES 4 % (9-44); MONOCYTES 4 % (0-8); NEUTROPHIL # MANUAL DIFF 7.7 TH/MM3 (1.8-7.7); POLYS (SEG NEUTROPHILS) 92 % (16-70)
[2018-02-21] MEDS: PANTOPRAZOLE SOD 40 MG DELAYED RELEASE TAB PO SCH (08:31)
[2018-02-21] MEDS: FINASTERIDE 5 MG TAB PO SCH (08:31)
[2018-02-21] MEDS: FUROSEMIDE 40 MG TAB PO SCH (08:31)
[2018-02-21] MEDS: METOPROLOL TARTRATE 50 MG TAB PO SCH ×2 (08:31→21:09)
[2018-02-21] MEDS: ALLOPURINOL 300 MG TAB PO SCH (08:31)
[2018-02-21] MEDS: LOSARTAN 50 MG TAB PO SCH (08:31)
[2018-02-21] MEDS: SODIUM CHLORIDE 0.9% FLUSH 10 ML FLUSH IV FLUSH SCH ×2 (08:32→21:09)
--- NOTE | 2018-02-21 10:14 | HHI.FPPN ---
Subjective Remarks Patient seen and examined. He reports tumultuous sleep last night with accompanying unilateral headache that quickly resolved. No focal weakness, slurring, confusion. Patient discussed CT-guided liver biopsy with , and has decided to undergo study. On the schedule for today. Notes his history of claustrophobia and preference for sedation during imaging procedures. Denies chest pain, changes in vision, changes in hearing, muscle weakness/numbness/ tingling. (Alonso Carbajal MD R1) Objective Vitals Vital Signs Date Time Temp Pulse Resp B/P (MAP) Pulse Ox O2 Delivery O2 Flow Rate FiO2 02/21/18 08:00 98.5 82 16 141/74 (96) 92 02/21/18 04:00 99.1 100 18 143/71 (95) 93 02/21/18 00:01 98.2 115 19 147/88 (107) 95 02/20/18 20:00 97.7 83 18 147/74 (98) 93 02/20/18 16:00 97.8 78 19 150/66 (94) 93 02/20/18 12:00 97.6 75 19 153/72 (99) 92 I/O 02/20/18 02/20/18 02/20/18 02/21/18 02/21/18 02/21/18 07:00 15:00 23:00 07:00 15:00 23:00 Intake Total 380 ml 360 ml 400 ml Output Total 6 ml 550 ml Balance 374 ml -190 ml 400 ml Intake Oral 380 ml 360 ml 400 ml Output Urine Total 6 ml 550 ml # Voids 2 # Bowel Movements 0 (Alonso Carbajal MD R1) Result Diagram: 02/21/18 0607 02/21/18 0607 Imaging Last 72 hours Impressions Liver Ultrasound 02/19/18 0000 Signed Impressions: Service Date/Time: Monday, February 19, 2018 02:38 - CONCLUSION: 1. The liver is cirrhotic and heterogeneous. No distinct focal mass is identified by ultrasound. 2. Ascites and bilateral pleural effusions. 3. Sludge is noted layering dependently in the gallbladder with no distinct stones. 4. Mild splenomegaly with no focal lesions. Alonso Ac MD Chest X-Ray 02/19/18 0000 Signed Impressions: CONCLUSION: 1. New patchy infiltrate with small effusion in the right lower lung. 2. Pulmonary venous congestion. 3. Stable cardiomegaly and evidence of previous granulomatous disease. Abdomen/Pelvis CT 02/18/180 Signed Impressions: Service Date/Time: Sunday, February 18, 2018 22:28 - CONCLUSION: 1. No acute abnormality to explain the patient's pain. 2. Cirrhosis with concern for right hepatic lobe mass measuring approximately 8 cm. MRI with gadolinium is suggested to further evaluate this lesion. Hepatocellular carcinoma is the chief concern. 3. Stable small volume ascites. 4. Umbilical hernia. 5. Cholelithiasis. José Miguel Rollins Jr., MD Objective Remarks GENERAL: This is an elderly gentleman resting quietly in bed on his right side, in no apparent distress. SKIN: Cool and dry. No jaundice. HEAD: Atraumatic. Normocephalic. EYES: Pupils equal round and reactive. Extraocular motions intact. No scleral icterus. No injection or drainage. ENT: Nose without bleeding, purulent drainage or septal hematoma. MMM. Airway patent. NECK: Trachea midline. CARDIOVASCULAR: Regular rate and rhythm without murmurs, gallops, or rubs. RESPIRATORY: Clear to auscultation. Breath sounds equal bilaterally. No crackles. GASTROINTESTINAL: Abdomen is distended, tender to palpation of the right side of the abdomen at the level of the umbilicus. Ascites with positive fluid wave. Reducible umbilical hernia noted. No caput medusa or spider angiomata noted. MUSCULOSKELETAL: Extremities without clubbing, cyanosis, or edema. No calf tenderness. No joint swelling or tenderness. NEUROLOGICAL: Awake and alert. Cranial nerves II through XII intact. Motor and sensation grossly intact. Normal speech. Medications and IVs Current Medications Medications (Trade) Dose Ordered Sig/Gerardo Route Start Time Stop Time Status Last Admin (NS Flush) 2 ml UNSCH PRN IV FLUSH 02/19/18 02:15 (NS Flush) 2 ml BID IV FLUSH 02/19/18 09:00 02/21/18 08:32 (Protonix) 40 mg DAILY PO 02/19/18 09:00 02/21/18 08:31 (Tylenol) 650 mg Q6H PRN PO 02/19/18 02:15 02/21/18 05:12 (Narcan Inj) 0.4 mg UNSCH PRN IV PUSH 02/19/18 02:15 (Zyloprim) 300 mg DAILY PO 02/19/18 09:00 02/21/18 08:31 (Proscar) 5 mg DAILY PO 02/19/18 09:00 02/21/18 08:31 (Lasix) 40 mg DAILY PO 02/19/18 09:00 02/21/18 08:31 (Ativan) 0.5 mg BID PRN PO 02/19/18 02:30 02/19/18 23:59 (Cozaar) 100 mg DAILY PO 02/19/18 09:00 02/21/18 08:31 (Lopressor) 50 mg BID PO 02/19/18 09:00 02/21/18 08:31 (Nitrostat Sl) 0.4 mg DAILY PRN SL 02/19/18 02:30 (NovoLOG SUPPLEMENTAL SCALE) 1 ACHS SLIDING SCALE SQ 02/19/18 08:00 02/19/18 18:03 (Catapres) 0.1 mg BID PRN PO 02/19/18 09:00 (Reglan Inj) 5 mg Q6H PRN IV PUSH 02/19/18 08:15 02/20/18 12:29 (Morphine Inj) 2 mg Q3H PRN IV 02/20/18 17:30 (Ultram) 50 mg Q4H PRN PO 02/20/18 16:00 02/21/18 08:30 (Ultram) 100 mg Q4H PRN PO 02/20/18 16:00 (Zofran Odt) 4 mg Q4H PRN PO 02/20/18 16:00 02/21/18 01:56 (Alonso Carbajal MD R1) A/P Assessment and Plan Patient is an 82-year-old male with a history of chronic back pain, diabetes mellitus 2, chronic kidney disease stage III admitted to observation for right upper quadrant abdominal pain, found to have hepatic mass. Patient history of cirrhosis with weight loss, family history of hepatocellular carcinoma, CT imaging showing 8 cm hepatic lobe mass, laboratory analysis remarkable for greatly elevated CA-19-9. Discussed with radiologist. CT-guided biopsy scheduled for today, physical therapy prior to discharge. Discharge Planning pending CT-guided biopsy, physical therapy prior to discharge. (Alonso Carbajal MD R1) Attending Attestation Patient seen and examined, discussed with Dr Carbajal. I agree with assessment and management as documented and discussed with me. Pt seen with Dr Solorio (palliative care). Pt reports that he would like MRI and CT biopsy to determine what the mass in his liver is. He discusses with us that he would like to be DNR, and expresses understanding of what this means. He denies any current nausea. (Sarah Bear MD) Problem List: (1) Liver mass ICD Codes: R16.0 - Hepatomegaly, not elsewhere classified Status: Acute Plan: 8 cm mass noted on CT, with cirrhosis and stable small volume ascites. Concerning for malignancy, with presentation of weight loss, new mass on CT abdomen, and CA 19-9 that is elevated. Going for CT-guided liver biopsy today Liver US: Does not identify discrete mass. AFP: normal Ammonia: normal Hepatitis panel: negative CA 19-9: 1288 GI has been consulted; appreciate recs. d/w radiology, CT-guided biopsy indicated. Discussed with patient that there is a possibility this is malignant. Pt expressed understanding. He reports that he is amenable to biopsy and panendoscopy, but is not interested in curative treatment (surgery, chemo, XRT) should this be malignant. He expressed hesitation towards an MRI but agreed to undergo with sedation if necessary. (2) Weakness ICD Codes: R53.1 - Weakness Status: Acute Plan: He reported feeling weak and needed help to get from bed to chair. -Physical therapy consult, recommend home with home health pt (3) Cirrhosis ICD Codes: K74.60 - Unspecified cirrhosis of liver Status: Chronic Plan: Possible etiologies/other differential for cirrhosis: hepatitis versus nonalcoholic fatty liver disease versus hemochromatosis versus heart failure. Associated with ascites, appears to be a small amount; however, patient may require paracentesis at some point if symptoms worsen or for diagnosis (check cytology in ascitic fluid). PT elevated at 12.0, rest of coagulation profile within normal limits AST mildly elevated 82 See above plan (4) Nausea ICD Codes: R11.0 - Nausea Status: Resolved Plan: May be secondary to carcinoma Other possibilities: Ileus versus gastroparesis Provide Reglan 5 mg IV every 6 hours as needed (half the usual dose due to low clinical creatinine clearance) Full liquid diet; advance as tolerated once seen by GI, in case of anticipated procedure. (5) Type II diabetes mellitus ICD Codes: E11.9 - Type 2 diabetes mellitus Status: Chronic Plan: Low-dose sliding scale insulin (6) Chronic kidney disease, stage III (moderate) ICD Codes: N18.3 - Chronic kidney disease, stage III (moderate) Status: Chronic Plan: Follows with Dr. Ayala Associated with anemia and proteinuria BUN/creatinine appears to be at around baseline (30/2) GFR 30 Creatinine clearance of 14 Avoid contrast Avoid nephrotoxic medications; renally dose medications Permanent Comment: Last Edited By: Elaina Shine on February 19, 2018 03:28 (7) Anxiety ICD Codes: F41.9 - Anxiety disorder, unspecified Status: Chronic Plan: Continue home regimen of Lorazepam 0.5 mg (BID) as needed: 1 tablet at bedtime as needed for sleep and when daily as needed for anxiety (8) Hypertension ICD Codes: I10 - Hypertension Status: Chronic Plan: Resume home medication of furosemide 40 mg p.o. daily, losartan 100 mg p.o. daily Change clonidine 0.1 mg p.o. twice daily home medication to as needed, may escalate for worsening blood pressure (9) Hyperlipidemia ICD Codes: E78.5 - Hyperlipidemia, unspecified Status: Chronic Plan: Atorvastatin held at admission. Will restart at discharge. (10) Gout ICD Codes: M10.9 - Gout, unspecified Status: Chronic Plan: Continue home allopurinol 300 mg daily. (11) GERD (gastroesophageal reflux disease) ICD Codes: K21.9 - Gastro-esophageal reflux disease without esophagitis Status: Chronic Plan: Continue home Protonix 40 mg p.o. daily. Symptoms of nausea have improved. 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 Hemodynamically stable. Continue to monitor H/H. (Alonso Carbajal MD R1) Problem Qualifiers (1) Cirrhosis: Qualified Codes: K74.60 - Unspecified cirrhosis of liver; R18.8 - Other ascites (2) Type II diabetes mellitus: Qualified Codes: E11.8 - Type 2 diabetes mellitus with unspecified complications (3) Hypertension: Qualified Codes: I10 - Essential (primary) hypertension (4) Hyperlipidemia: Qualified Codes: E78.2 - Mixed hyperlipidemia (5) Gout: (6) GERD (gastroesophageal reflux disease): Qualified Codes: K21.9 - Gastro-esophageal reflux disease without esophagitis (7) Iron deficiency anemia: Qualified Codes: D50.0 - Iron deficiency anemia secondary to blood loss ( chronic) Alonso Carbajal MD R1 February 21, 2018 10:14 Sarah Bear MD February 21, 2018 21:11
--- NOTE | 2018-02-21 12:40 | PD.CONS ---
Consult Service Palliative Care Consult Requested By [facility] Primary Care Physician Fito Montgomery MD Reason for Consultation a. To assist with evaluation and management of symptoms including:pain; nausea and vomiting. b. To assist medical decision maker(s) with: better understanding of current medical conditions; weighing benefits/burdens of medical treatment options; making medical treatment decisions. HPI History of Present Illness Patient is a 82-year-old past medical history significant for AAA, anemia, anxiety, CAD status post triple bypass, high cholesterol, COPD and hypertension. He presented to the ER on February 18, 2018 for evaluation of abdominal pain, bloating and nausea. Patient was here earlier in January for evaluation of the same symptoms. Patient was admitted, workup shows a small:, Patient was stabilized and was discharge. Patient started developing similar symptoms in the next few days with worsening nausea, and abdominal pain. He rates the pain 7 out of 10 and decided to go go back to the hospital. In the ER : * Temperature is 98.2, pulse is 108, respirations 22, blood pressure is 162/72, pulse ox is 95% * WBCs percent 0.2, hemoglobin is 10.7, hematocrit is 33.6, platelet is 166 * Sodium is 141, potassium 4.1, chloride 104, bicarb 24.5, BUN is 31, creatinine is 2.1 * AST is 82, ALT is 23, alk phos is 254. * PT is 12.0, INR is 1.2, PTT is 27.1 * CT of the abdomen consists cirrhosis with concern for right hepatic lobe mass measuring at 8 cm. There is a small amount of ascites. * Ultrasound of the liver shows cirrhosis. No distinct focal masses identified by ultrasound. Ascites and bilateral pleural effusion is noted. Patient is admitted to family medicine services. 02/19/2018. GI is consulted and further history was taken that shows a 20 pound weight loss in the past 3 months of unclear etiology. CA 199 was elevated at 1288. GI recommend liver biopsy and supportive care. Per GI note "biggest concern is that the CA 19-9 is significantly elevated to warrant an evaluation for pancreatic cancer ..." 02/20/2018-patient has been refusing liver biopsy as he stated he was not feeling well. He was complaining of nausea and vomiting. Patient also is concerned about IV contrast and reportedly had a reverse reaction to it. 02/21/2018-patient decided to undergo CT-guided liver biopsy after discussing with . Palliative care was consulted to review goals of care as patient was refusing to undergo biopsy. On my visit pt noted that he had nausea and vomiting, but it has been better today. He also stated he normally have pain in his neck and back, but not currently. He is up in his chair. Family Medicine attending also present during my initial conversation with patient. We discuss his clinical condition currently, and spoke about his biopsy. We ==Pt is alert, able to elaborate he has had tumor. He states today he is amenable to undergo biopsy of tumor to find out what it is, after speaking with his . == He endorse that he does not want resucitation and wants to be a DNR. Later on as i was bring in a community DNR, pt's step daughter was present. Patient's was also present via speaker phone. Family resident was there for part of the conversation. == Pt's , pt's step daughter, and patient endorses DNR. == Community DNR was signed, I will scan a copy into HIM. 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 Both and wants to know what the tumor is. == At any point both and states; "If it appears pt's tumor is not curable" or if he is too sick/functionally complete treatment, both patient and are amenable to Hospice services "The one in [place]." == thinks pt has a living Will, but amenable for me to leave a blank copy just in case, they need another one completed. == If after biopsy pt remains stable, there is a possibility pt may discharge home (this was discussed by family residents); and follow up on the biopsy as an outpatient. Function/Cognitive Trajectory Patient has a few recent hospitalization. he has been getting more fatigued, and losing weight. Review of Systems ROS Limitations: Clinical Condition Constitutional: COMPLAINS OF: Fatigue, Weight loss Endocrine: DENIES: Polydipsia, Polyuria Eyes: DENIES: Diplopia, Eye inflammation Ears, nose, mouth, throat: DENIES: Hearing loss, Vertigo, Nasal discharge Respiratory: DENIES: Snoring, Wheezing Cardiovascular: DENIES: Palpitations, Syncope, Dyspnea on Exertion Gastrointestinal: COMPLAINS OF: Nausea, Vomiting Musculoskeletal: COMPLAINS OF: Muscle aches Integumentary: DENIES: Abnormal pigmentation Hematologic/Lymphatics: DENIES: Bruising, Prolonged bleed w/ proced Neurologic: DENIES: Speech Problems Past Family Social History Coded Allergies: Iodinated Contrast- Oral and IV Dye (Verified Allergy, Severe, Hives, 02/18) penicillin G (Unverified Allergy, Severe, HIVES, 02/18/18) Past Medical History DM CKDIII HTN Past Surgical History AAA repair CABG appendectomy Reported Medications Furosemide 40 Mg Tab 40 Mg PO DAILY Vitamin D3 (Cholecalciferol) 2,000 Unit Cap 2,000 Units PO DAILY Allopurinol 300 Mg Tab 300 Mg PO DAILY Pantoprazole (Pantoprazole Sodium) 40 Mg Tab 40 Mg PO DAILY Hydrocodone-Acetaminophen 7.5-325 mg Tab 1 Tab PO Q6H PRN Vitamin B-12 (Cyanocobalamin) 1,000 Mcg Tab 1,000 Mcg PO DAILY Current Medications Medications (Trade) Dose Ordered Sig/Gerardo Route Start Time Stop Time Status Last Admin (NS Flush) 2 ml UNSCH PRN IV FLUSH 02/19/18 02:15 (NS Flush) 2 ml BID IV FLUSH 02/19/18 09:00 02/21/18 08:32 (Protonix) 40 mg DAILY PO 02/19/18 09:00 02/21/18 08:31 (Tylenol) 650 mg Q6H PRN PO 02/19/18 02:15 02/21/18 11:02 (Narcan Inj) 0.4 mg UNSCH PRN IV PUSH 02/19/18 02:15 (Zyloprim) 300 mg DAILY PO 02/19/18 09:00 02/21/18 08:31 (Proscar) 5 mg DAILY PO 02/19/18 09:00 02/21/18 08:31 (Lasix) 40 mg DAILY PO 02/19/18 09:00 02/21/18 08:31 (Ativan) 0.5 mg BID PRN PO 02/19/18 02:30 02/19/18 23:59 (Cozaar) 100 mg DAILY PO 02/19/18 09:00 02/21/18 08:31 (Lopressor) 50 mg BID PO 02/19/18 09:00 02/21/18 08:31 (Nitrostat Sl) 0.4 mg DAILY PRN SL 02/19/18 02:30 (NovoLOG SUPPLEMENTAL SCALE) 1 ACHS SLIDING SCALE SQ 02/19/18 08:00 02/19/18 18:03 (Catapres) 0.1 mg BID PRN PO 02/19/18 09:00 (Reglan Inj) 5 mg Q6H PRN IV PUSH 02/19/18 08:15 02/20/18 12:29 (Morphine Inj) 2 mg Q3H PRN IV 02/20/18 17:30 (Ultram) 50 mg Q4H PRN PO 02/20/18 16:00 02/21/18 08:30 (Ultram) 100 mg Q4H PRN PO 02/20/18 16:00 (Zofran Odt) 4 mg Q4H PRN PO 02/20/18 16:00 02/21/18 01:56 Family History father - cirrhosis. mother - CVD, DM, HTN, cardiac disease. 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 He has 2 children from a previous marriage, but he endorse they are not very close. Step daughter Mariya Landin has been involve with patients care. Spiritual/Cultural Factors Episcopal Living Will: Completed, but not made available Physical Exam Vital Signs Date Time Temp Pulse Resp B/P (MAP) Pulse Ox O2 Delivery O2 Flow Rate FiO2 02/21/18 08:00 98.5 82 16 141/74 (96) 92 02/21/18 04:00 99.1 100 18 143/71 (95) 93 02/21/18 00:01 98.2 115 19 147/88 (107) 95 02/20/18 20:00 97.7 83 18 147/74 (98) 93 02/20/18 16:00 97.8 78 19 150/66 (94) 93 Exam CONSTITUTIONAL/GENERAL: This is a pleasant elderly gentlemen. Sitting in the chair. SKIN: No jaundice, rashes, or lesions. Ecchymoses on upper extremities. No wounds seen anteriorly. Skin temperature appropriate. Not diaphoretic. HEAD: Atraumatic. Normocephalic. EYES: Pupils equal and round and reactive. Extraocular motions intact. No scleral icterus. No injection or drainage. Fundi not examined. ENT: Hearing grossly normal. Nose without bleeding or purulent drainage. Throat without visible erythema, exudates, masses, or lesions. NECK: Trachea midline. Supple, nontender. No palpable thyroid enlargement or nodularity. CARDIOVASCULAR: Regular rate and rhythm without murmurs, gallops, or rubs. No JVD. Peripheral pulses symmetric. RESPIRATORY/CHEST: Symmetric, unlabored respirations. Clear to auscultation. Breath sounds equal bilaterally. No wheezes, rales, or rhonchi. GASTROINTESTINAL: Abdomen distended, but non tender; Umbilical hernia present. GENITOURINARY: Without palpable bladder distension. Briseno catheter in place. MUSCULOSKELETAL: Extremities without clubbing, cyanosis. Edema 2+. No joint tenderness or effusion noted. No calf tenderness. No mottling or clubbing. LYMPHATICS: No palpable cervical or supraclavicular adenopathy. NEUROLOGICAL: Awake and alert. Motor and sensory grossly within normal limits. Follows commands. Cognitively sharp. Moves all extremities. PSYCHIATRIC: No obvious anxiety/depression. no apparent hallucinations or other psychotic thought process. Diagnostic Tests Laboratory Laboratory Tests Test 02/18/18 22:19 02/18/18 23:25 02/19/18 06:05 02/19/18 08:50 White Blood Count 10.2 TH/MM3 (4.0-11.0) 6.6 TH/MM3 (4.0-11.0) Red Blood Count 3.49 MIL/MM3 (4.50-5.90) 3.10 MIL/MM3 (4.50-5.90) Hemoglobin 10.7 GM/DL (13.0-17.0) 9.6 GM/DL (13.0-17.0) Hematocrit 33.6 % (39.0-51.0) 29.9 % (39.0-51.0) Mean Corpuscular Volume 96.3 FL (80.0-100.0) 96.5 FL (80.0-100.0) Mean Corpuscular Hemoglobin 30.7 PG (27.0-34.0) 31.1 PG (27.0-34.0) Mean Corpuscular Hemoglobin Concent 31.9 % (32.0-36.0) 32.2 % (32.0-36.0) Red Cell Distribution Width 18.6 % (11.6-17.2) 18.8 % (11.6-17.2) Platelet Count 166 TH/MM3 (150-450) 115 TH/MM3 (150-450) Mean Platelet Volume 9.4 FL (7.0-11.0) 9.1 FL (7.0-11.0) Neutrophils (%) (Auto) 93.5 % (16.0-70.0) Lymphocytes (%) (Auto) 2.4 % (9.0-44.0) Monocytes (%) (Auto) 3.4 % (0.0-8.0) Eosinophils (%) (Auto) 0.2 % (0.0-4.0) Basophils (%) (Auto) 0.5 % (0.0-2.0) Neutrophils # (Auto) 9.6 TH/MM3 (1.8-7.7) Lymphocytes # (Auto) 0.2 TH/MM3 (1.0-4.8) Monocytes # (Auto) 0.3 TH/MM3 (0-0.9) Eosinophils # (Auto) 0.0 TH/MM3 (0-0.4) Basophils # (Auto) 0.1 TH/MM3 (0-0.2) CBC Comment DIFF FINAL Differential Comment Prothrombin Time 12.0 SEC (9.8-11.6) Prothromb Time International Ratio 1.2 RATIO Activated Partial Thromboplast Time 27.1 SEC (24.3-30.1) Blood Urea Nitrogen 31 MG/DL (7-18) 31 MG/DL (7-18) Creatinine 2.11 MG/DL (0.60-1.30) 1.95 MG/DL (0.60-1.30) Random Glucose 150 MG/DL (74-106) 104 MG/DL (74-106) Total Protein 7.9 GM/DL (6.4-8.2) 6.8 GM/DL (6.4-8.2) Albumin 2.9 GM/DL (3.4-5.0) 2.6 GM/DL (3.4-5.0) Calcium Level 9.6 MG/DL (8.5-10.1) 9.4 MG/DL (8.5-10.1) Alkaline Phosphatase 254 U/L (45-117) 213 U/L (45-117) Aspartate Amino Transf (AST/SGOT) 82 U/L (15-37) 69 U/L (15-37) Alanine Aminotransferase (ALT/SGPT) 23 U/L (12-78) 20 U/L (12-78) Total Bilirubin 1.0 MG/DL (0.2-1.0) 0.7 MG/DL (0.2-1.0) Sodium Level 141 MEQ/L (136-145) 144 MEQ/L (136-145) Potassium Level 4.1 MEQ/L (3.5-5.1) 4.0 MEQ/L (3.5-5.1) Chloride Level 104 MEQ/L (98-107) 107 MEQ/L (98-107) Carbon Dioxide Level 24.5 MEQ/L (21.0-32.0) 25.1 MEQ/L (21.0-32.0) Anion Gap 13 MEQ/L (5-15) 12 MEQ/L (5-15) Estimat Glomerular Filtration Rate 30 ML/MIN (>89) 33 ML/MIN (>89) Lactic Acid Level 1.7 mmol/L (0.4-2.0) Lipase 81 U/L (73-393) Urine Color YELLOW (YELLW/STRAW) Urine Turbidity CLEAR (CLEAR) Urine pH 5.0 (5.0-8.5) Urine Specific [place] 1.027 (1.002-1.035) Urine Protein 300 OR GREATER mg/dL Urine Glucose (UA) NEG mg/dL (NEG) Urine Ketones NEG mg/dL (NEG) Urine Occult Blood SMALL (NEG) Urine Nitrite NEG (NEG) Urine Bilirubin MOD (NEG) Urine Urobilinogen 1.0 MG/DL (LESS THAN Urine Leukocyte Esterase NEG (NEG) Urine RBC 8 /hpf (0-3) Urine WBC 2 /hpf (0-5) Urine Squamous Epithelial Cells 1 /hpf (0-5) Urine Hyaline Casts 31 /lpf (RARE) Urine Mucus FEW /lpf (OCC) Microscopic Urinalysis Comment CULT NOT INDICATED Ammonia 26 MCMOL/L (11-32) Tumor Marker Alpha Fetoprotein 7.0 NG/ML (0.5-8.0) CA 19-9 Antigen 1288.4 U/ML (0.0-35.0) Hepatitis A IgM Antibody NONREACTIVE (NONREACTIVE) Hepatitis B Surface Antigen NONREACTIVE (NONREACTIVE) Hepatitis B Core IgM Antibody NONREACTIVE (NONREACTIVE) Hepatitis C IgG Antibody NONREACTIVE (NONREACTIVE) Blood Smear Pathologist Review Test 02/19/18 14:57 02/20/18 06:25 02/21/18 06:07 Prothrombin Time 12.8 SEC (9.8-11.6) Prothromb Time International Ratio 1.3 RATIO Activated Partial Thromboplast Time 29.8 SEC (24.3-30.1) Ferritin 171 NG/ML (26-388) Anti-Nuclear Antibody Screen NEG (NEG) White Blood Count 8.4 TH/MM3 (4.0-11.0) Red Blood Count 3.01 MIL/MM3 (4.50-5.90) Hemoglobin 9.4 GM/DL (13.0-17.0) Hematocrit 29.7 % (39.0-51.0) Mean Corpuscular Volume 98.6 FL (80.0-100.0) Mean Corpuscular Hemoglobin 31.3 PG (27.0-34.0) Mean Corpuscular Hemoglobin Concent 31.7 % (32.0-36.0) Red Cell Distribution Width 18.5 % (11.6-17.2) Platelet Count 132 TH/MM3 (150-450) Mean Platelet Volume 9.4 FL (7.0-11.0) CBC Comment AUTO DIFF Differential Total Cells Counted 100 Neutrophils % (Manual) 92 % (16-70) Lymphocytes % 4 % (9-44) Monocytes % 4 % (0-8) Neutrophils # (Manual) 7.7 TH/MM3 (1.8-7.7) Differential Comment FINAL DIFF MANUAL Platelet Estimate LOW (NORMAL) Platelet Morphology Comment NORMAL (NORMAL) Basophilic Stippling MOD (NORMAL) Blood Urea Nitrogen 31 MG/DL (7-18) Creatinine 2.02 MG/DL (0.60-1.30) Random Glucose 134 MG/DL (74-106) Total Protein 7.0 GM/DL (6.4-8.2) Albumin 2.6 GM/DL (3.4-5.0) Calcium Level 9.3 MG/DL (8.5-10.1) Alkaline Phosphatase 269 U/L (45-117) Aspartate Amino Transf (AST/SGOT) 105 U/L (15-37) Alanine Aminotransferase (ALT/SGPT) 30 U/L (12-78) Total Bilirubin 0.7 MG/DL (0.2-1.0) Sodium Level 143 MEQ/L (136-145) Potassium Level 4.5 MEQ/L (3.5-5.1) Chloride Level 106 MEQ/L (98-107) Carbon Dioxide Level 27.0 MEQ/L (21.0-32.0) Anion Gap 10 MEQ/L (5-15) Estimat Glomerular Filtration Rate 32 ML/MIN (>89) Result Diagram: 02/21/18 0607 02/21/18 0607 Imaging Last Impressions Liver Ultrasound 02/19/18 0000 Signed Impressions: Service Date/Time: Monday, February 19, 2018 02:38 - CONCLUSION: 1. The liver is cirrhotic and heterogeneous. No distinct focal mass is identified by ultrasound. 2. Ascites and bilateral pleural effusions. 3. Sludge is noted layering dependently in the gallbladder with no distinct stones. 4. Mild splenomegaly with no focal lesions. Alonso Ac MD Chest X-Ray 02/19/18 0000 Signed Impressions: CONCLUSION: 1. New patchy infiltrate with small effusion in the right lower lung. 2. Pulmonary venous congestion. 3. Stable cardiomegaly and evidence of previous granulomatous disease. Abdomen/Pelvis CT 02/18/182208 Signed Impressions: Service Date/Time: Sunday, February 18, 2018 22:28 - CONCLUSION: 1. No acute abnormality to explain the patient's pain. 2. Cirrhosis with concern for right hepatic lobe mass measuring approximately 8 cm. MRI with gadolinium is suggested to further evaluate this lesion. Hepatocellular carcinoma is the chief concern. 3. Stable small volume ascites. 4. Umbilical hernia. 5. Cholelithiasis. José Miguel Rollins Jr., MD Patient/Family Conference Present at Family Conference: Pt's stepdaughter, patient, Pt's spouse Renee Cook. Family Conference Time (mins): 40 (advance care planing 30min.) Family Conference Location: Bedside, Telephone (conference /speaker phone with .) Issues Discussed: * Palliative care role, purpose, approach * Additional medical, psychosocial, and spiritual history * Patients general health, functional status, and cognitive changes in the months leading up to the current hospitalization * Patient/family understanding of the current medical problems * Patient/family understanding of prognosis * Patients goals of care as best understood from advance directives and/or conversations and/or values * Current medical treatment options and benefits/burdens of those options * Likely scenarios comparing ongoing aggressive care with a transition to comfort measures only * Questions answered to the best of my ability * Palliative care contact information provided Assessment and Plan Disease Oriented Problem List: (1) Liver mass (2) Weakness (3) Cirrhosis (4) GERD (gastroesophageal reflux disease) (5) Chronic kidney disease, stage III (moderate) (6) HYPERLIPIDEMIA NEC/NOS Symptom Scale: (1) Nausea 0-10 Scale: 0 (2) Abdominal pain 0-10 Scale: 0 Pertinent Non-Medical Issues Psychosocial:2nd marriage. Mounika Duran Spiritual:Episcopal Legal: They believe they have a living will. Just in case a blank living will was left with them at bedside. Step daughter wanted to check if old will is available before completing it today. Ethical issues impacting care: None Important Contacts Spouse: Renee Cook [phone] Step daughter Mariya Landin [phone] Prognosis Prognosis is guarded. Patient has liver mass with elevated CA marker. Pt condition complicated by cirrohsis, ckd, chronic pain. At risk for sudden decline, setback and rehopitalization. Certainly if patient's mass is found to be cancer, and if he either decides not to undergo treatment/ or if functionally he cannot complete treatment- pt would be hospice appropriate. Code Status: No Code Plan ==capacity- Pt is alert, able to elaborate he has had liver tumor. I feel patient has capacity to make medical decisions. == health care decision maker- Living will not present, but he is sure its his . By Joan storm, Proxy would be pt's current spouse Renee Cook. == Code: DNR. == advance care planing- community DNR completed. Living will left with patient. Discussion 30 min. == symptoms: nausea/vomiting- cirrhosis/ bm. Zofran and reglan seems to be effective today. pain- chronic back pain. Continue Ultram. Goals of Treatment. We discuss his clinical condition currently, and spoke about his biopsy. == He endorse that he does not want resucitation and wants to be a DNR. Later on as i was bring in a community DNR, pt's step daughter was present. Patient's was also present via speaker phone. Family resident was there for part of the conversation. == Pt's , pt's step daughter, and patient endorses DNR. == Community DNR was signed, I will scan a copy into HIM. 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 Both and wants to know what the tumor is. == At any point both and states; "If it appears pt's tumor is not curable" or if he is too sick/functionally complete treatment, both patient and are amenable to Hospice services "The one in [place]." == thinks pt has a living Will, but amenable for me to leave a blank copy just in case, they need another one completed. == If after biopsy pt remains stable, there is a possibility pt may discharge home (this was discussed by family residents); and follow up on the biopsy as an outpatient. Palliative care will follow as pt's clinical condition evolves. Thank you for the opportunity to participate in the care of Mr. Ribera. Attestation To help prompt me to consider important information that might be impacting today's encounter and assessment, information from prior notes written by myself or my colleagues may have been "brought forward" into today's note. My signature on this note, however, is an attestation that I personally performed the exam, history, and/or decision-making noted today, and, unless otherwise indicated, the interactions with patient, family, and staff as well as the review of records all occurred today. I also attest that the listed assessment and stated plan reflect my best clinical judgment today based on the combination of historical information, prior notes, and today's exam/ interactions. When time spent is documented, it refers only to time spent today by the signer, or if indicated, combined time spent today by collaborating physician/nurse practitioner. Shree Solorio MD February 21, 2018 12:40
[2018-02-21] MEDS ORDERED: fentaNYL CITRATE 250 MCG/5 ML AMP ONE (15:06)
[2018-02-21] MEDS ORDERED: MIDAZOLAM HCL 5 MG/5 ML VIAL ONE (15:06)
[2018-02-21 15:10] LABS: SMOOTH MUSCLE TOTAL AUTOABS Negative (Negative)
--- NOTE | 2018-02-21 15:38 | PD.RAD ---
Post CT Procedure Prog Note Pre Procedure Diagnosis: (1) Cirrhosis (2) Liver mass Post Procedure Diagnosis: (1) Cirrhosis (2) Liver mass Procedure Date: February 21, 2018 Supervising Radiologist: Jerardo Marcelino Plan of Activity Patient to Unit: Nursing Unit Patient Condition: Fair See PACS Report for procedural detail/treatment Biopsy Imaging Guidance: CT Side: Right Biopsy Procedure: Liver Specimen: Core Biopsy Jerardo Marcelino MD February 21, 2018 15:38
[2018-02-21 18:00] LABS: ALPHA-1-ANTITRYPSIN 314 mg/dL (100 - 190)
--- NOTE | 2018-02-21 20:59 | RADRPT ---
EXAM DATE: 02/21/2018 8:43 PM EDT AGE/SEX: 82 years / Male INDICATIONS: Mass. Liver mass, abnormal CT scan. CLINICAL DATA: This is the patient's initial encounter. Patient reports that signs and symptoms have been present for 1 day and indicates a pain score of 1/10. MEDICAL/SURGICAL HISTORY: Hypercholesterolemia. Diabetes mellitus type II. CABG. Appendectomy . Abdominal aortic aneurysm repair. Cardiac stent. COMPARISON: [facility] [place], CT NEEDLE BIOPSY LIVER, 02/21/2018. [facility] [place], US ABDOMEN - LIVER, 02/19/2018. [facility] [place], C T ABDOMEN & PELVIS W/O CONTRAST, 02/02/2018. . TECHNIQUE: Multiplanar, multisequence images of the abdomen were obtained prior to and following adm inistration of 16 ml Multihance (gadobenate) contrast as a single exam dose with dynamic multiphase t echnique. FINDINGS: There is a moderate amount of ascites in the upper abdomen. Also a moderate size right ple ural effusion. Liver: Dominant mass in the upper posterior segment of the right lobe of the liver measures 9.5 x 8.8 cm. Contrast enhancement pattern is heterogeneous with central areas of absent uptake and a lacy pat tern of enhancement peripheral one third. There is an infiltrative component which extends into the i nferior tip of the liver demonstrating heterogeneous enhancement. The mass extends superiorly into th e IVC approximately 4 cm. Gallbladder: There is some layering sludge within the dependent lumen of the gallbladder near the nec k. Spleen: The spleen is unremarkable. Pancreas: The pancreas is unremarkable. Adrenals: The adrenal glands appear normal. Kidneys: Symmetric size kidneys with mild cortical thinning. There are several cysts in the left kidn ey parenchyma measuring up to 1.3 cm. Retroperitoneum: 6.1 cm distal abdominal aortic saccular aneurysm with intact flow within the aortic and iliac components of the endostent. No evidence of retroperitoneal adenopathy. CONCLUSION: 1. Greater than 10 cm mass involving most of the right lobe of the liver with inhomogeneous pattern of enhancement, extension into the liver tip and evidence of extension into the inferior vena cava. 2. Moderate ascites and moderate size right pleural effusion. 3. Sludge in the gallbladder, left renal cysts, and aortic aneurysm with stent in place. Electronically signed by: José Miguel Layton MD 02/21/2018 8:57 PM EDT
[2018-02-21] MEDS ORDERED: GADOBENATE DIM PF 529 MG/ML 5 ML VIAL (for RAD MRI) IV ONE (21:07)
[2018-02-21] MEDS: LORazepam 0.5 MG TAB PO PRN (21:16)
[2018-02-22] VITALS: BP 114/64; PULSE 93; RESP 22; TEMP 98.3; O2SAT 92
[2018-02-22] MEDS: traMADol HCL 50 MG TAB PO PRN (06:00)
[2018-02-22 08:00] VITALS: BP 175/84; PULSE 106; RESP 18; TEMP 98.1; O2SAT 93
--- NOTE | 2018-02-22 08:00 | RADRPT ---
EXAM DATE: 02/21/2018 4:31 PM EDT AGE/SEX: 82 years / Male INDICATIONS: Liver mass. CLINICAL DATA: This is the patient's initial encounter. Patient reports that signs and symptoms have been present for 1 day and indicates a pain score of 0/10. MEDICAL/SURGICAL HISTORY: Cardiovascular disease. Aneurysm, abdominal. Hypertension. Irritab le bowel syndrome, stage three chronic kidney disease, renal calculi. CABG. Abdominal aortic aneury sm repair. Appendectomy. COMPARISON: No prior [facility] exams available for comparison. SEDATION TIME (min): 30 BIOPSY SITE: Right liver MEDICATION(S): 2 MG midazolam (Versed) IV 100 mcg fentanyl (Sublimaze) IV DEVICE(S): 18 gauge Temno core biopsy needle . . PROCEDURE: CT guided Right liver biopsy Prior to the procedure informed consent was obtained. Any appropriate prior imaging studies were rev iewed. Using automated exposure control and adjustment of the mA and/or kV according to patient size, radiat ion dose was kept as low as reasonably achievable to obtain optimal diagnostic quality images. DICOM format image data is available electronically for review and comparison. The site was prepped in a sterile fashion. Full sterile technique was used, including cap, mask, balbina rile gloves and gown and a large sterile sheet. Hand hygiene and 2% chlorhexidine and/or betadine/al cohol prep was utilized per protocol for cutaneous antisepsis. The skin and subcutaneous tissues wer e infiltrated with local anesthetic solution. With CT guidance the previously identified target was localized. Biopsy was performed using the presc ribed needle as above. Adequate hemostasis was obtained with compression at the puncture site. Follow-up CT scan reveals no hemorrhage. The patient tolerated the procedure well and there were no complications. The patient was returned to the Radiology Outpatient Unit in stable condition. CONCLUSION: Uncomplicated CT guided biopsy of right hepatic lobe mass. Electronically signed by: Jerardo Marcelino MD 02/22/2018 7:59 AM EDT
[2018-02-22] MEDS: FINASTERIDE 5 MG TAB PO SCH (08:38)
[2018-02-22] MEDS: METOPROLOL TARTRATE 50 MG TAB PO SCH ×2 (08:38→21:11)
[2018-02-22] MEDS: ALLOPURINOL 300 MG TAB PO SCH (08:38)
[2018-02-22] MEDS: FUROSEMIDE 40 MG TAB PO SCH (08:38)
[2018-02-22] MEDS: INSULIN ASPART SUPPLEMENTAL SCALE SQ SCH ×5 (08:39→21:00)
[2018-02-22] MEDS: PANTOPRAZOLE SOD 40 MG DELAYED RELEASE TAB PO SCH (08:39)
[2018-02-22] MEDS: LOSARTAN 50 MG TAB PO SCH (08:39)
[2018-02-22] MEDS: SODIUM CHLORIDE 0.9% FLUSH 10 ML FLUSH IV FLUSH SCH ×2 (08:40→21:12)
[2018-02-22] MEDS ORDERED: ASPIRIN 325 MG TAB PO SCH (09:35)
--- NOTE | 2018-02-22 09:59 | HHI.FPPN ---
Subjective Remarks Patient was complaining of chest pain. Nurse gave him nitroglycerin. Patient reported his pain went from a 7 out of 10 to a 2 or 3. Furthermore, patient complaining of headache. He reports it is a worse headache of his life. He denies any history of headache. He denies that his headache is any worse with bending over or having a bowel movement. He denies any neck pain or photophobia. He denies any neurological problems at this time. Discussed MRI findings with patient and his over the phone. His also voiced concern for these new/recent headaches as well as his new urinary incontinence. Patient also complaining of some new suprapubic pain. (Alonso Cerda MD R2) Objective Vitals Vital Signs Date Time Temp Pulse Resp B/P (MAP) Pulse Ox O2 Delivery O2 Flow Rate FiO2 02/22/18 00:00 98.3 93 22 114/64 (81) 92 02/21/18 21:50 169/68 (101) 95 02/21/18 21:00 96 Nasal Cannula 2.00 02/21/18 21:00 98.1 100 22 172/79 (110) 96 02/21/18 17:36 97.3 92 16 124/64 (84) 96 02/21/18 16:50 91 18 148/74 (98) 95 02/21/18 16:20 86 16 148/69 (95) 93 02/21/18 16:05 98.3 88 16 149/81 (103) 98 02/21/18 12:00 98.2 86 16 125/96 (106) 95 02/21/18 10:05 92 Nasal Cannula 2.00 I/O 02/21/18 02/21/18 02/21/18 02/22/18 02/22/18 02/22/18 07:00 15:00 23:00 07:00 15:00 23:00 Intake Total 400 ml 0 ml 360 ml Balance 400 ml 0 ml 360 ml Intake Oral 400 ml 0 ml 360 ml # Voids 2 2 3 # Bowel Movements 0 (Alonso Cerda MD R2) Result Diagram: 02/21/18 0607 02/21/18 0607 Imaging Last Impressions Liver Biopsy CT 02/21/18 0000 Signed Impressions: CONCLUSION: Uncomplicated CT guided biopsy of right hepatic lobe mass. Abdomen MRI 5/24/18 0000 Signed Impressions: CONCLUSION: 1. Greater than 10 cm mass involving most of the right lobe of the liver with inhomogeneous pattern of enhancement, extension into the liver tip and evidence of extension into the inferior vena cava. 2. Moderate ascites and moderate size right pleural effusion. 3. Sludge in the gallbladder, left renal cysts, and aortic aneurysm with stent in place. Liver Ultrasound 02/19/18 Signed Impressions: Service Date/Time: Monday, February 19, 2018 02:38 - CONCLUSION: 1. The liver is cirrhotic and heterogeneous. No distinct focal mass is identified by ultrasound. 2. Ascites and bilateral pleural effusions. 3. Sludge is noted layering dependently in the gallbladder with no distinct stones. 4. Mild splenomegaly with no focal lesions. Alonso Ac MD Chest X-Ray 02/19/18 Signed Impressions: CONCLUSION: 1. New patchy infiltrate with small effusion in the right lower lung. 2. Pulmonary venous congestion. 3. Stable cardiomegaly and evidence of previous granulomatous disease. Abdomen/Pelvis CT 02/18/182208 Signed Impressions: Service Date/Time: Sunday, February 18, 2018 22:28 - CONCLUSION: 1. No acute abnormality to explain the patient's pain. 2. Cirrhosis with concern for right hepatic lobe mass measuring approximately 8 cm. MRI with gadolinium is suggested to further evaluate this lesion. Hepatocellular carcinoma is the chief concern. 3. Stable small volume ascites. 4. Umbilical hernia. 5. Cholelithiasis. José Miguel Rollins Jr., MD Objective Remarks GENERAL: This is an elderly gentleman resting quietly in bed, in no apparent distress. SKIN: Cool and dry. No jaundice. HEAD: Atraumatic. Normocephalic. EYES: Pupils equal round and reactive. Extraocular motions intact. No scleral icterus. No injection or drainage. ENT: Nose without bleeding, purulent drainage or septal hematoma. MMM. Airway patent. NECK: Trachea midline. CARDIOVASCULAR: Regular rate and rhythm without murmurs, gallops, or rubs. RESPIRATORY: Clear to auscultation. Breath sounds equal bilaterally. No crackles. GASTROINTESTINAL: Abdomen is distended, tender to palpation of the right side of the abdomen. + Ascites with positive fluid wave. Reducible umbilical hernia noted. No caput medusa or spider angiomata noted. : Patient with condom catheter draining dark yellow urine MUSCULOSKELETAL: Extremities without clubbing, cyanosis, or edema. No calf tenderness. No joint swelling or tenderness. NEUROLOGICAL: Awake and alert. Cranial nerves II through XII intact. Motor and sensation intact. Strength 5 out of 5 in upper and lower extremities. Reflexes intact. Rapid alternating motions normal. Normal speech. (Alonso Cerda MD R2) A/P Assessment and Plan Patient is an 82-year-old male with a history of chronic back pain, diabetes mellitus 2, chronic kidney disease stage III admitted to observation for right upper quadrant abdominal pain, found to have hepatic mass. Patient history of cirrhosis with weight loss, family history of hepatocellular carcinoma, CT imaging showing 8 cm hepatic lobe mass, laboratory analysis remarkable for greatly elevated CA-19-9. Discussed with radiologist. Gastroenterology consulted. Palliative care consult. Oncology consult. Hospice consult. CT- guided biopsy, MRI done. Physical therapy prior to discharge. Discharge Planning pending symptom control and consults prior to discharge. (Alonso Cerda MD R2) Attending Attestation Patient seen, examined, and discussed with Sylvie Cerda and Solomon. I agree with assessment and management as documented and discussed with me. Pt seen with and step-daughter at bedside. They report recently being seen by Dr Butts and state that a hospice consult is to be placed. He feels more comfortable with dilaudid. All questions answered to the best of my abilities. Anticipate discharge home on hospice tomorrow, as per pt wishes. (Sarah Bear MD) Problem List: (1) Liver mass ICD Codes: R16.0 - Hepatomegaly, not elsewhere classified Status: Acute Plan: Concerning for malignancy. CT-guided liver biopsy done CT showed 8cm mass MRI showed almost 10cm mass that seems to invade the IVC Liver US: Does not identify discrete mass. AFP: normal Ammonia: normal Hepatitis panel: negative CA 19-9: 1288 GI has been consulted; appreciate recs. Palliative care consulted. Oncology consulteded. Hospice consult placed today. Planning on home hospice versus hospice at [facility] if indicated. Discussed with patient that there is a possibility this is malignant. Pt expressed understanding. He reports that he is amenable to biopsy and panendoscopy, but is not interested in curative treatment (surgery, chemo, XRT) should this be malignant. (2) Chest pain ICD Codes: R07.9 - Chest pain, unspecified Plan: Reported this morning. Improved with nitroglycerin. -ACS rule out with every 6 hours troponin and EKG -Aspirin now (3) Headache ICD Codes: R51 - Headache Plan: Concerning for SAH versus intracranial metastases -CT of the brain -Changed pain medication from morphine to Dilaudid because of CKD per conversation with Dr. Solorio (4) Urinary incontinence ICD Codes: R32 - Unspecified urinary incontinence Plan: With condom catheter in place -UA to rule out infection (5) Weakness ICD Codes: R53.1 - Weakness Status: Acute Plan: He reported feeling weak and needed help to get from bed to chair. -Physical therapy consult, recommend home with home health pt versus home hospice (6) Cirrhosis ICD Codes: K74.60 - Unspecified cirrhosis of liver Status: Chronic Plan: Possible etiologies/other differential for cirrhosis: hepatitis versus nonalcoholic fatty liver disease versus hemochromatosis versus heart failure. PT elevated at 12.0, rest of coagulation profile within normal limits AST mildly elevated 82 See above plan (7) Nausea ICD Codes: R11.0 - Nausea Status: Resolved Plan: May be secondary to carcinoma vs pain medication Zofran ODT Provide Reglan 5 mg IV every 6 hours as needed (half the usual dose due to low clinical creatinine clearance) (8) Type II diabetes mellitus ICD Codes: E11.9 - Type 2 diabetes mellitus Status: Chronic Plan: Low-dose sliding scale insulin (9) Chronic kidney disease, stage III (moderate) ICD Codes: N18.3 - Chronic kidney disease, stage III (moderate) Status: Chronic Plan: Follows with Dr. Ayala Associated with anemia and proteinuria BUN/creatinine appears to be at around baseline (30/2) GFR 30 Creatinine clearance of 14 Avoid contrast Avoid nephrotoxic medications; renally dose medications Permanent Comment: Last Edited By: Elaina Shine on February 19, 2018 03:28 (10) Anxiety ICD Codes: F41.9 - Anxiety disorder, unspecified Status: Chronic Plan: Continue home regimen of Lorazepam 0.5 mg (BID) as needed: 1 tablet at bedtime as needed for sleep and when daily as needed for anxiety (11) Hypertension ICD Codes: I10 - Hypertension Status: Chronic Plan: Resume home medication of furosemide 40 mg p.o. daily, losartan 100 mg p.o. daily Change clonidine 0.1 mg p.o. twice daily home medication to as needed, may escalate for worsening blood pressure (12) Hyperlipidemia ICD Codes: E78.5 - Hyperlipidemia, unspecified Status: Chronic Plan: Atorvastatin held at admission. (13) Gout ICD Codes: M10.9 - Gout, unspecified Status: Chronic Plan: Continue home allopurinol 300 mg daily. (14) GERD (gastroesophageal reflux disease) ICD Codes: K21.9 - Gastro-esophageal reflux disease without esophagitis Status: Chronic Plan: Continue home Protonix 40 mg p.o. daily. (15) Iron deficiency anemia ICD Codes: D50.9 - Iron deficiency anemia, unspecified Status: Chronic Plan: Pt with colon polyps, seen on 2013 scope. Hemodynamically stable. Continue to monitor H/H. (Alonso Cerda MD R2) Problem Qualifiers (1) Cirrhosis: Qualified Codes: K74.60 - Unspecified cirrhosis of liver; R18.8 - Other ascites (2) Type II diabetes mellitus: Qualified Codes: E11.8 - Type 2 diabetes mellitus with unspecified complications (3) Hypertension: Qualified Codes: I10 - Essential (primary) hypertension (4) Hyperlipidemia: Qualified Codes: E78.2 - Mixed hyperlipidemia (5) Gout: (6) GERD (gastroesophageal reflux disease): Qualified Codes: K21.9 - Gastro-esophageal reflux disease without esophagitis (7) Iron deficiency anemia: Qualified Codes: D50.0 - Iron deficiency anemia secondary to blood loss ( chronic) Alonso Cerda MD R2 February 22, 2018 09:59 Sarah Bear MD February 22, 2018 20:53
[2018-02-22] MEDS: ONDANSETRON ODT 4 MG TAB PO PRN (10:13)
[2018-02-22] MEDS: MORPHINE SULFATE 4 MG/ML INJ IV PUSH PRN ×2 (10:49→13:01)
[2018-02-22 12:00] VITALS: BP 151/66; PULSE 76; RESP 18; TEMP 98; O2SAT 92
[2018-02-22 12:42] LABS: BACTERIA, URINE RARE /hpf; BILIRUBIN, URINE NEG (NEG); BLOOD, URINE TRACE (NEG); GLUCOSE,URINE NEG (NEG); KETONE, URINE NEG (NEG); NITRITE,URINE NEG (NEG); PH, URINE 5.5 (5.0-8.5); URINE COLOR YELLOW (YELLW/STRAW); URINE LEUKOCYTE ESTERASE NEG (NEG)
[2018-02-22] MEDS ORDERED: HYDROmorphone HCL PF 0.5 MG/0.5 ML SYRINGE IV PUSH PRN (14:45)
--- NOTE | 2018-02-22 14:49 | HHI.HCPN ---
Reason for visit a. To assist with evaluation and management of symptoms including:pain, nausea b. To assist medical decision maker(s) with: better understanding of current medical conditions; weighing benefits/burdens of medical treatment options; making medical treatment decisions. Subjective/Interval History Patient complain of right side abdomen and flank pain today 6/10 pain. Patient was given morphine which he stated helped but did not last. Spoke about his renal insufficiency and he is amenable to change to dilaudid. He denies nausea today. Reviewed his imaging, and size and location of mass and proximity to Vena Cava I told him I worry that given his functional status along with location and size of the mass, he may not be a candidate for therapy. He is tearful, but accepting. He does want to wait for oncology, but he reaffirms, if he is not a candidate for any therapy, or because his functional status is too low to tolerate, he is amenable to hospice at home. He reaffirms DNR status. This was reviewed with the and she supports decision to transition to comfort measures, if oncology confirms limited amount of treatment. She again endorse [facility], and would want home with hospice if possible. She is amenable to change to dilaudid prn for pain. Family/friend interactions see hpi. Advance Directives Living Will: Completed, but not made available Objective Vital Signs Date Time Temp Pulse Resp B/P (MAP) Pulse Ox O2 Delivery O2 Flow Rate FiO2 02/22/18 08:00 98.1 106 18 175/84 (114) 93 02/22/18 00:00 98.3 93 22 114/64 (81) 92 02/21/18 21:50 169/68 (101) 95 02/21/18 21:00 96 Nasal Cannula 2.00 02/21/18 21:00 98.1 100 22 172/79 (110) 96 02/21/18 17:36 97.3 92 16 124/64 (84) 96 02/21/18 16:50 91 18 148/74 (98) 95 02/21/18 16:20 86 16 148/69 (95) 93 02/21/18 16:05 98.3 88 16 149/81 (103) 98 Intake & Output 02/22/18 02/22/18 07:00 19:00 Intake Total 360 ml Balance 360 ml Intake Oral 360 ml # Voids 3 Physical Exam CONSTITUTIONAL/GENERAL: This is a pleasant elderly gentlemen. Sitting in the chair. SKIN: No jaundice, rashes, or lesions. Ecchymoses on upper extremities. No wounds seen anteriorly. Skin temperature appropriate. Not diaphoretic. HEAD: Atraumatic. Normocephalic. EYES: Pupils equal and round and reactive. Extraocular motions intact. No scleral icterus. No injection or drainage. Fundi not examined. ENT: Hearing grossly normal. Nose without bleeding or purulent drainage. Throat without visible erythema, exudates, masses, or lesions. NECK: Trachea midline. Supple, nontender. No palpable thyroid enlargement or nodularity. CARDIOVASCULAR: Regular rate and rhythm without murmurs, gallops, or rubs. No JVD. Peripheral pulses symmetric. RESPIRATORY/CHEST: Symmetric, unlabored respirations. Clear to auscultation. Breath sounds equal bilaterally. No wheezes, rales, or rhonchi. GASTROINTESTINAL: Abdomen distended, but non tender; Umbilical hernia present. GENITOURINARY: Without palpable bladder distension. Briseno catheter in place. MUSCULOSKELETAL: Extremities without clubbing, cyanosis. Edema 2+. No joint tenderness or effusion noted. No calf tenderness. No mottling or clubbing. LYMPHATICS: No palpable cervical or supraclavicular adenopathy. NEUROLOGICAL: Awake and alert. Motor and sensory grossly within normal limits. Follows commands. Cognitively sharp. Moves all extremities. PSYCHIATRIC: No obvious anxiety/depression. no apparent hallucinations or other psychotic thought process. Diagnostic Tests Laboratory Laboratory Tests Test 02/19/18 14:57 02/20/18 06:25 02/21/18 06:07 02/22/18 11:32 Prothrombin Time 12.8 SEC (9.8-11.6) Prothromb Time International Ratio 1.3 RATIO Activated Partial Thromboplast Time 29.8 SEC (24.3-30.1) Ferritin 171 NG/ML (26-388) [id number] 314 mg/dL (100 - 190) Anti-Nuclear Antibody Screen NEG (NEG) Anti-Smooth Muscle Antibody Negative (Negative) White Blood Count 8.4 TH/MM3 (4.0-11.0) Red Blood Count 3.01 MIL/MM3 (4.50-5.90) Hemoglobin 9.4 GM/DL (13.0-17.0) Hematocrit 29.7 % (39.0-51.0) Mean Corpuscular Volume 98.6 FL (80.0-100.0) Mean Corpuscular Hemoglobin 31.3 PG (27.0-34.0) Mean Corpuscular Hemoglobin Concent 31.7 % (32.0-36.0) Red Cell Distribution Width 18.5 % (11.6-17.2) Platelet Count 132 TH/MM3 (150-450) Mean Platelet Volume 9.4 FL (7.0-11.0) CBC Comment AUTO DIFF Differential Total Cells Counted 100 Neutrophils % (Manual) 92 % (16-70) Lymphocytes % 4 % (9-44) Monocytes % 4 % (0-8) Neutrophils # (Manual) 7.7 TH/MM3 (1.8-7.7) Differential Comment FINAL DIFF MANUAL Platelet Estimate LOW (NORMAL) Platelet Morphology Comment NORMAL (NORMAL) Basophilic Stippling MOD (NORMAL) Blood Urea Nitrogen 31 MG/DL (7-18) Creatinine 2.02 MG/DL (0.60-1.30) Random Glucose 134 MG/DL (74-106) Total Protein 7.0 GM/DL (6.4-8.2) Albumin 2.6 GM/DL (3.4-5.0) Calcium Level 9.3 MG/DL (8.5-10.1) Alkaline Phosphatase 269 U/L (45-117) Aspartate Amino Transf (AST/SGOT) 105 U/L (15-37) Alanine Aminotransferase (ALT/SGPT) 30 U/L (12-78) Total Bilirubin 0.7 MG/DL (0.2-1.0) Sodium Level 143 MEQ/L (136-145) Potassium Level 4.5 MEQ/L (3.5-5.1) Chloride Level 106 MEQ/L (98-107) Carbon Dioxide Level 27.0 MEQ/L (21.0-32.0) Anion Gap 10 MEQ/L (5-15) Estimat Glomerular Filtration Rate 32 ML/MIN (>89) Urine Color YELLOW (YELLW/STRAW) Urine Turbidity CLEAR (CLEAR) Urine pH 5.5 (5.0-8.5) Urine Specific [place] 1.010 (1.002-1.035) Urine Protein 30 mg/dL (NEG-TRACE) Urine Glucose (UA) NEG mg/dL (NEG) Urine Ketones NEG mg/dL (NEG) Urine Occult Blood TRACE (NEG) Urine Nitrite NEG (NEG) Urine Bilirubin NEG (NEG) Urine Urobilinogen LESS THAN 2.0 MG/DL (LESS Urine Leukocyte Esterase NEG (NEG) Urine RBC 1 /hpf (0-3) Urine WBC 1 /hpf (0-5) Urine Bacteria RARE /hpf (NONE) Microscopic Urinalysis Comment CATH-CULTURE IND Test 02/22/18 12:55 Troponin I 0.02 NG/ML (0.02-0.05) Result Diagram: 02/21/18 0607 02/21/18606 Microbiology Microbiology Date/Time Source Procedure Growth Status 02/22/18 11:32 Urine Catheterized Urine Urine Culture Pending Received Imaging Last Impressions Liver Biopsy CT 02/21/18 0000 Signed Impressions: CONCLUSION: Uncomplicated CT guided biopsy of right hepatic lobe mass. Abdomen MRI 02/21/18 Signed Impressions: CONCLUSION: 1. Greater than 10 cm mass involving most of the right lobe of the liver with inhomogeneous pattern of enhancement, extension into the liver tip and evidence of extension into the inferior vena cava. 2. Moderate ascites and moderate size right pleural effusion. 3. Sludge in the gallbladder, left renal cysts, and aortic aneurysm with stent in place. Liver Ultrasound 02/19/18 Signed Impressions: Service Date/Time: Monday, February 19, 2018 02:38 - CONCLUSION: 1. The liver is cirrhotic and heterogeneous. No distinct focal mass is identified by ultrasound. 2. Ascites and bilateral pleural effusions. 3. Sludge is noted layering dependently in the gallbladder with no distinct stones. 4. Mild splenomegaly with no focal lesions. Alonso Ac MD Chest X-Ray 02/19/18 Signed Impressions: CONCLUSION: 1. New patchy infiltrate with small effusion in the right lower lung. 2. Pulmonary venous congestion. 3. Stable cardiomegaly and evidence of previous granulomatous disease. Abdomen/Pelvis CT 02/18/182208 Signed Impressions: Service Date/Time: Sunday, February 18, 2018 22:28 - CONCLUSION: 1. No acute abnormality to explain the patient's pain. 2. Cirrhosis with concern for right hepatic lobe mass measuring approximately 8 cm. MRI with gadolinium is suggested to further evaluate this lesion. Hepatocellular carcinoma is the chief concern. 3. Stable small volume ascites. 4. Umbilical hernia. 5. Cholelithiasis. José Miguel Rollins Jr., MD Assessment and Plan Disease Oriented Problem List: (1) Liver mass (2) Weakness (3) Cirrhosis (4) GERD (gastroesophageal reflux disease) (5) Chronic kidney disease, stage III (moderate) (6) HYPERLIPIDEMIA NEC/NOS Symptom Scale: (1) Nausea 0-10 Scale: 0 (2) Abdominal pain 0-10 Scale: 0 Pertinent Non-Medical Issues Psychosocial:2nd marriage. Mounika Duran Spiritual:Sikh Legal: They believe they have a living will. Just in case a blank living will was left with them at bedside. Step daughter wanted to check if old will is available before completing it today. Ethical issues impacting care: None Important Contacts Spouse: Renee Cook [phone] Step daughter Mariya Landin [phone] Prognosis Prognosis is guarded. Patient has liver mass with elevated CA marker. Pt condition complicated by cirrohsis, ckd, chronic pain. At risk for sudden decline, setback and rehopitalization. Certainly if patient's mass is found to be cancer, and if he either decides not to undergo treatment/ or if functionally he cannot complete treatment- pt would be hospice appropriate. Code Status: No Code Plan ==capacity- Pt is alert, able to elaborate he has had liver tumor. I feel patient has capacity to make medical decisions. == health care decision maker- Living will not present, but he is sure its his . By Joan storm, Proxy would be pt's current spouse Renee Cook. == Code: DNR. == advance care planing- community DNR completed. Living will left with patient. Discussion 30 min. == symptoms: nausea/vomiting- cirrhosis/ bm. Zofran and reglan seems to be effective today. pain- chronic back pain. I don't think Ultram has been very effective at this point, but he does want to keep it there. given is renal status, I will change it to Dilaudid 0.5 mg iv q 3 hour prn. Goals of Treatment. Reviewed his imaging, and size and location of mass and proximity to Vena Cava I told him I worry that given his functional status along with location and size of the mass, he may not be a candidate for therapy. He is tearful, but accepting. He does want to wait for oncology, but he reaffirms, if he is not a candidate for any therapy, or because his functional status is too low to tolerate, he is amenable to hospice at home. He reaffirms DNR status. This was reviewed with the and she supports decision to transition to comfort measures with hospice, if oncology confirms limited amount of treatment. She again endorse [facility], and would want home with hospice if possible. She is amenable to change to dilaudid prn for pain. Palliative care will follow as pt's clinical condition evolves. Attestation To help prompt me to consider important information that might be impacting today's encounter and assessment, information from prior notes written by myself or my colleagues may have been "brought forward" into today's note. My signature on this note, however, is an attestation that I personally performed the exam, history, and/or decision-making noted today, and, unless otherwise indicated, the interactions with patient, family, and staff as well as the review of records all occurred today. I also attest that the listed assessment and stated plan reflect my best clinical judgment today based on the combination of historical information, prior notes, and today's exam/ interactions. When time spent is documented, it refers only to time spent today by the signer, or if indicated, combined time spent today by collaborating physician/nurse practitioner. Shree Solorio MD February 22, 2018 14:49
--- NOTE | 2018-02-22 14:51 | HHI.GIFU ---
Subjective Remarks Patient is laying on his right side with supportive pillows Large abdomen soft but is having some right-sided abdominal pain where the biopsy was taken States he feels lab was seen with decreased appetite Seems depressed has not gotten good news about his liver disease (Zuri Melendez) Objective Vitals I&O Vital Signs Date Time Temp Pulse Resp B/P (MAP) Pulse Ox O2 Delivery O2 Flow Rate FiO2 02/22/18 08:00 98.1 106 18 175/84 (114) 93 02/22/18 00:00 98.3 93 22 114/64 (81) 92 02/21/18 21:50 169/68 (101) 95 02/21/18 21:00 96 Nasal Cannula 2.00 02/21/18 21:00 98.1 100 22 172/79 (110) 96 02/21/18 17:36 97.3 92 16 124/64 (84) 96 02/21/18 16:50 91 18 148/74 (98) 95 02/21/18 16:20 86 16 148/69 (95) 93 02/21/18 16:05 98.3 88 16 149/81 (103) 98 I/O 02/21/18 02/21/18 02/21/18 02/22/18 02/22/18 02/22/18 07:00 15:00 23:00 07:00 15:00 23:00 Intake Total 400 ml 0 ml 360 ml Balance 400 ml 0 ml 360 ml Intake Oral 400 ml 0 ml 360 ml # Voids 2 2 3 # Bowel Movements 0 Laboratory Laboratory Tests Test 02/22/18 11:32 02/22/18 12:55 Urine Color YELLOW Urine Turbidity CLEAR Urine pH 5.5 Urine Specific [place] 1.010 Urine Protein 30 Urine Glucose (UA) NEG Urine Ketones NEG Urine Occult Blood TRACE Urine Nitrite NEG Urine Bilirubin NEG Urine Urobilinogen LESS THAN 2.0 Urine Leukocyte Esterase NEG Urine RBC 1 Urine WBC 1 Urine Bacteria RARE Microscopic Urinalysis Comment CATH-CULTURE IND Troponin I 0.02 Date/Time Source Procedure Growth Status 02/22/18 11:32 Urine Catheterized Urine Urine Culture Pending Received Imaging Last Impressions Liver Biopsy CT 02/21/18 0000 Signed Impressions: CONCLUSION: Uncomplicated CT guided biopsy of right hepatic lobe mass. Abdomen MRI 02/21/18 0000 Signed Impressions: CONCLUSION: 1. Greater than 10 cm mass involving most of the right lobe of the liver with inhomogeneous pattern of enhancement, extension into the liver tip and evidence of extension into the inferior vena cava. 2. Moderate ascites and moderate size right pleural effusion. 3. Sludge in the gallbladder, left renal cysts, and aortic aneurysm with stent in place. Liver Ultrasound 02/19/18 0000 Signed Impressions: Service Date/Time: Monday, February 19, 2018 02:38 - CONCLUSION: 1. The liver is cirrhotic and heterogeneous. No distinct focal mass is identified by ultrasound. 2. Ascites and bilateral pleural effusions. 3. Sludge is noted layering dependently in the gallbladder with no distinct stones. 4. Mild splenomegaly with no focal lesions. Alonso Ac MD Chest X-Ray 02/19/18 Signed Impressions: CONCLUSION: 1. New patchy infiltrate with small effusion in the right lower lung. 2. Pulmonary venous congestion. 3. Stable cardiomegaly and evidence of previous granulomatous disease. Abdomen/Pelvis CT 02/18/182208 Signed Impressions: Service Date/Time: Sunday, February 18, 2018 22:28 - CONCLUSION: 1. No acute abnormality to explain the patient's pain. 2. Cirrhosis with concern for right hepatic lobe mass measuring approximately 8 cm. MRI with gadolinium is suggested to further evaluate this lesion. Hepatocellular carcinoma is the chief concern. 3. Stable small volume ascites. 4. Umbilical hernia. 5. Cholelithiasis. José Miguel Rollins Jr., MD Physical Exam HEENT: Normocephalic; atraumatic, generalized pale color, obese CHEST: Even/unlabored , no shortness of breath at rest CARDIAC: RRR ABDOMEN: Large, distended, soft, tenderness noted at the site of liver biopsy right side abdomen, bowel sounds active EXTREMITIES: No clubbing, cyanosis, or edema. SKIN: Normal; no rash; no jaundice. 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 Stable small volume ascites. Umbilical hernia. Cholelithiasis US liver (02/19) The liver is cirrhotic and heterogeneous. No distinct focal mass is identified by US. Ascites and bilateral pleural effusions. Sludge is noted layering dependently in the gallbladder with no distinct stones. Mild splenomegaly with no focal lesions. AFP- 7 Hepatitis panel negative. Ferritin-171 States father of liver cancer, states father drank alcohol when he was young - Markedly elevated CA 19-9 -1288. Denies personal family history of pancreatic issues and family history of pancreatic cancer. - Weight loss - 20 lbs 3 months, unclear etiology. last EGD, colonoscopy 7y ago and patient is unsure of result 02/22/2018 patient had liver biopsy done on 02/21/2018 without any complications for his liver mass. He seems fairly depressed and blue today and states that he did not get good news about the liver and that he did not have long to live. We did discuss that the biopsies are pending. We talked about his life, his pain management and symptoms, his appetite and diet, and supportive care to patient. While talking his and grandson came in who he was glad to see. His wishes at this time are to go home which he hopes will happen tomorrow. He was also told that his pain medicine was affecting his kidneys so he wants to try some new medication to see if it is effective or not but his most important thing is he is pain management. Patient notes mild headache as well as some right-sided abdominal pain where the biopsy was taken. He did receive some pain medicine and seems to be more comfortable now. His CODE STATUS with DNR. Encourage patient to maintain as much activity as he can tolerate for his strengthening and mobility, encouraged small meals and p.o. fluids. Appreciate palliative care input. Hemoglobin on was 9.4 no obvious bleeding noted. Consider EUS if patient desires or as needed to manage his symptoms in case. ASSESSMENT -Liver biopsy pending -Diet, as desired, small meals 4-6 times a day if needed with increased hydration -Reflux precautions and sitting up after eating -Pain meds and antiemetics - Supportive care GI can follow as outpatient if patient needs us, available if needed Pt has been seen and examined by myself and Dr. Foss and this note is written on his behalf (Zuri Melendez) Physician Comments Patient seen and examined Agree with above Continue with current supportive care Monitor labs (Jeff Foss MD) Zuri Melendez February 22, 2018 14:51 Jeff Foss MD February 22, 2018 15:33
[2018-02-22] MEDS ORDERED: HYDROmorphone HCL PF 0.5 MG/0.5 ML SYRINGE IV PUSH ONE (17:00)
--- NOTE | 2018-02-22 19:31 | EKG ---
Date Performed: 02/22/2018 Time Performed: 10:19:37 PTAGE: 82 years EKG: NORMAL Sinus rhythm WITH PACs NONSPECIFIC ST-T WAVE CHANGES ABNORMAL RHYTHM ECG Compared to PREVIOUS TRACING , the patient now appears to be in normal sinus rhythm. PREVIOUS TRACING : 02/18/2018 22.42 DOCTOR: Maria Esther Eller Interpretating Date/Time 02/22/2018 19:30:52
[2018-02-22] MEDS: HYDROmorphone HCL PF 0.5 MG/0.5 ML SYRINGE IV PUSH PRN (19:37)
[2018-02-22 20:00] VITALS: BP 166/76; PULSE 97; RESP 18; TEMP 98; O2SAT 96
--- NOTE | 2018-02-22 20:25 | RADRPT ---
EXAM DATE: 02/22/2018 8:19 PM EDT AGE/SEX: 82 years / Male INDICATIONS: Cephalgia with liver mass. Possible metastatic disease. CLINICAL DATA: This is the patient's initial encounter. Patient reports that signs and symptoms have been present for 1 day and indicates a pain score of 7/10. MEDICAL/SURGICAL HISTORY: Cardiovascular disease. Hypertension. Carcinoma, liver. None. RADIATION DOSE: 48.98 CTDI (mGy) COMPARISON: No prior [facility] exams available for comparison. TECHNIQUE: CT of the head without contrast. Using automated exposure control and adjustment of the mA and/or kV according to patient size, radiation dose was kept as low as reasonably achievable to ob tain optimal diagnostic quality images. FINDINGS: Cerebrum: There is oval hypodensity in the white matter of the right anterior parietal stevens radiat a measuring 11 mm. There is a hypodensity in the cortex of the right occipital lobe mid convexity rosy suring 12 mm. No evidence of mass effect. No specific acute blood products. Asymmetric hypodense flui d about the right frontoparietal region. No extra-axial blood. Midline structures are not deviated. T he ventricles are normal size. Posterior Fossa: The cerebellum and brainstem are intact. The 4th ventricle is midline. The cerebe llopontine angle is unremarkable. Extracranial: The visualized portion of the orbits is intact. Skull: The calvaria is intact. No evidence of skull fracture. CONCLUSION: 1. Hypodensities in the right parietal white matter and right occipital cortex, nonspecific on nonco ntrast CT. 2. Given the clinical suspicion for metastatic disease, may consider MRI of the brain with and witho ut contrast for further characterization. Electronically signed by: José Miguel Layton MD 02/22/2018 8:24 PM EDT
[2018-02-23 00:01] VITALS: BP 112/83; PULSE 87; RESP 18; TEMP 97.6; O2SAT 93
[2018-02-23] MEDS: HYDROmorphone HCL PF 0.5 MG/0.5 ML SYRINGE IV PUSH PRN ×3 (02:25→14:41)
[2018-02-23 04:00] VITALS: BP 179/67; PULSE 85; RESP 18; TEMP 98.2; O2SAT 94
--- NOTE | 2018-02-23 07:51 | HHI.FPPN ---
Subjective Remarks No acute issues overnight. Vitals are stable, patient remains afebrile. His greatest concern this morning is his headache. He also notes soreness at his biopsy site. He notes that the Dilaudid helps his pain. He understands his cancer diagnosis and treatment options. He plans to discuss with hospice today. 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 (Carmela Johnson MD R3) Objective Vitals Vital Signs Date Time Temp Pulse Resp B/P (MAP) Pulse Ox O2 Delivery O2 Flow Rate FiO2 02/23/18 04:00 98.2 85 18 179/67 (104) 94 02/23/18 03:07 18 02/23/18 00:01 97.6 87 18 112/83 (93) 93 02/22/18 23:48 Nasal Cannula 2.00 02/22/18 20:00 98.0 97 18 166/76 (106) 96 02/22/18 12:00 98.0 76 18 151/66 (94) 92 02/22/18 08:40 92 Nasal Cannula 2.00 02/22/18 08:00 98.1 106 18 175/84 (114) 93 I/O 02/22/18 02/22/18 02/22/18 02/23/18 02/23/18 02/23/18 07:00 15:00 23:00 07:00 15:00 23:00 Intake Total 360 ml 360 ml Balance 360 ml 360 ml Intake Oral 360 ml 360 ml # Voids 3 4 3 # Bowel Movements 0 (Carmela Johnson MD R3) Result Diagram: 02/21/18 0607 02/21/18 0607 Imaging Last Impressions Head CT 02/22/18 1806 Signed Impressions: CONCLUSION: 1. Hypodensities in the right parietal white matter and right occipital cortex , nonspecific on noncontrast CT. 2. Given the clinical suspicion for metastatic disease, may consider MRI of th e brain with and without contrast for further characterization. Liver Biopsy CT 02/21/18 0000 Signed Impressions: CONCLUSION: Uncomplicated CT guided biopsy of right hepatic lobe mass. Abdomen MRI 02/21/18 0000 Signed Impressions: CONCLUSION: 1. Greater than 10 cm mass involving most of the right lobe of the liver with inhomogeneous pattern of enhancement, extension into the liver tip and evidence of extension into the inferior vena cava. 2. Moderate ascites and moderate size right pleural effusion. 3. Sludge in the gallbladder, left renal cysts, and aortic aneurysm with stent in place. Liver Ultrasound 02/19/18 Signed Impressions: Service Date/Time: Monday, February 19, 2018 02:38 - CONCLUSION: 1. The liver is cirrhotic and heterogeneous. No distinct focal mass is identified by ultrasound. 2. Ascites and bilateral pleural effusions. 3. Sludge is noted layering dependently in the gallbladder with no distinct stones. 4. Mild splenomegaly with no focal lesions. Alonso Ac MD Chest X-Ray 02/19/18 Signed Impressions: CONCLUSION: 1. New patchy infiltrate with small effusion in the right lower lung. 2. Pulmonary venous congestion. 3. Stable cardiomegaly and evidence of previous granulomatous disease. Abdomen/Pelvis CT 02/18/182208 Signed Impressions: Service Date/Time: Sunday, February 18, 2018 22:28 - CONCLUSION: 1. No acute abnormality to explain the patient's pain. 2. Cirrhosis with concern for right hepatic lobe mass measuring approximately 8 cm. MRI with gadolinium is suggested to further evaluate this lesion. Hepatocellular carcinoma is the chief concern. 3. Stable small volume ascites. 4. Umbilical hernia. 5. Cholelithiasis. José Miguel Rollins Jr., MD Objective Remarks GENERAL: This is an elderly gentleman sitting comfortably in chair, in no apparent distress. SKIN: Cool and dry. No jaundice. HEAD: Atraumatic. Normocephalic. EYES: Pupils equal round and reactive. Extraocular motions intact. No scleral icterus. No injection or drainage. ENT: MMM. Airway patent. NECK: Trachea midline. CARDIOVASCULAR: Regular rate and rhythm without murmurs, gallops, or rubs. RESPIRATORY: Clear to auscultation. Breath sounds equal bilaterally. No crackles. GASTROINTESTINAL: Biopsy site clean, dry, without bleeding or drainage. MUSCULOSKELETAL: Extremities without clubbing, cyanosis, or edema. NEUROLOGICAL: Awake and alert. Cranial nerves II through XII intact. Normal speech. (Carmela Johnson MD R3) A/P Assessment and Plan Patient is an 82-year-old male with a history of chronic back pain, diabetes mellitus 2, chronic kidney disease stage III admitted to observation for right upper quadrant abdominal pain, found to have hepatic mass. Patient history of cirrhosis with weight loss, family history of hepatocellular carcinoma, CT imaging showing 8 cm hepatic lobe mass, laboratory analysis remarkable for greatly elevated CA-19-9. Gastroenterology consulted. Palliative care consult. Oncology consult. Hospice consult. CT-guided biopsy, MRI done. Physical therapy prior to discharge. Discharge Planning Anticipate discharge to Hospice today. (Carmela Johnson MD R3) Attending Attestation Patient seen and examined, and discussed with resident team. I agree with assessment and management as documented and discussed with me. Pt reports headache - continue dilaudid. Reviewed CT head results with patient, which indicate possible mets. Add dexamethasone today. Discussed pathology results from liver biopsy with patient as well. He expressed understanding. Discharge most likely to hospice today. Greater than 30 minutes spent counselling and coordinating care at discharge. 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 AFP: normal Ammonia: normal Hepatitis panel: negative CA 19-9: 1288 GI has been consulted; appreciate recs. Oncology consulted. Hospice consult. Planning on home hospice versus hospice at [facility]. Pt expressed understanding of prognosis and is not interested in curative treatment (surgery, chemo, XRT). (2) Headache ICD Codes: R51 - Headache Status: Acute Plan: Head CT shows hypodensities in the right parietal white matter and right occipital cortex consistent with likely mets -Dilaudid for pain - Will try decadron 4mg PO Q6H (3) Urinary incontinence ICD Codes: R32 - Unspecified urinary incontinence Plan: Condom catheter in place -UA to rule out infection, culture pending - Will treat empirically with ciprofloxacin 500mg PO Q12H x 7 days (started 02/23 ) (4) Weakness ICD Codes: R53.1 - Weakness Status: Acute Plan: -Physical therapy (5) Type II diabetes mellitus ICD Codes: E11.9 - Type 2 diabetes mellitus Status: Chronic Plan: Low-dose sliding scale insulin Has not required insulin in several days. Will DC SSI (6) Chronic kidney disease, stage III (moderate) ICD Codes: N18.3 - Chronic kidney disease, stage III (moderate) Status: Chronic Plan: Follows with Dr. Ayala Associated with anemia and proteinuria BUN/creatinine appears to be at around baseline (30/2) GFR 30 Creatinine clearance of 14 Avoid contrast Avoid nephrotoxic medications; renally dose medications Permanent Comment: Last Edited By: Elaina Shine on February 19, 2018 03:28 (7) Anxiety ICD Codes: F41.9 - Anxiety disorder, unspecified Status: Chronic Plan: Continue home regimen of Lorazepam 0.5 mg (BID) as needed: 1 tablet at bedtime as needed for sleep and when daily as needed for anxiety (8) Hypertension ICD Codes: I10 - Hypertension Status: Chronic Plan: Continue home furosemide 40 mg p.o. daily, losartan 100 mg p.o. daily Change clonidine 0.1 mg p.o. twice daily home medication to as needed, may escalate for worsening blood pressure (9) Hyperlipidemia ICD Codes: E78.5 - Hyperlipidemia, unspecified Status: Chronic Plan: Atorvastatin held at admission. (10) Gout ICD Codes: M10.9 - Gout, unspecified Status: Chronic Plan: Continue home allopurinol 300 mg daily. (11) GERD (gastroesophageal reflux disease) ICD Codes: K21.9 - Gastro-esophageal reflux disease without esophagitis Status: Chronic Plan: Continue home Protonix 40 mg p.o. daily. (12) Nutrition, metabolism, and development symptoms ICD Codes: R63.8 - Other symptoms and signs concerning food and fluid intake Status: Acute Plan: Fluids: None Electrolytes: monitor and replete PRN Nutrition: Diabetic diet (Carmela Johnson MD R3) Problem Qualifiers (1) Headache: Qualified Codes: G44.89 - Other headache syndrome (2) Urinary incontinence: Qualified Codes: R32 - Unspecified urinary incontinence (3) Type II diabetes mellitus: Qualified Codes: E11.8 - Type 2 diabetes mellitus with unspecified complications (4) Hypertension: Qualified Codes: I10 - Essential (primary) hypertension (5) Hyperlipidemia: Qualified Codes: E78.2 - Mixed hyperlipidemia (6) Gout: (7) GERD (gastroesophageal reflux disease): Qualified Codes: K21.9 - Gastro-esophageal reflux disease without esophagitis Carmela Johnson MD R3 February 23, 2018 07:50 Sarah Bear MD February 23, 2018 10:59
[2018-02-23 08:00] VITALS: BP 136/62; PULSE 88; RESP 18; TEMP 97.4; O2SAT 96
[2018-02-23] MEDS: METOPROLOL TARTRATE 50 MG TAB PO SCH ×2 (08:54→21:53)
[2018-02-23] MEDS: LOSARTAN 50 MG TAB PO SCH (08:54)
[2018-02-23] MEDS: ALLOPURINOL 300 MG TAB PO SCH (08:54)
[2018-02-23] MEDS: PANTOPRAZOLE SOD 40 MG DELAYED RELEASE TAB PO SCH (08:55)
[2018-02-23] MEDS: FUROSEMIDE 40 MG TAB PO SCH (08:55)
[2018-02-23] MEDS: FINASTERIDE 5 MG TAB PO SCH (08:55)
[2018-02-23] MEDS: SODIUM CHLORIDE 0.9% FLUSH 10 ML FLUSH IV FLUSH SCH ×2 (09:00→21:00)
[2018-02-23] MEDS: DEXAMETHASONE 4 MG TAB PO SCH ×3 (12:58→21:52)
[2018-02-23] MEDS: CIPROFLOXACIN 500 MG TAB PO SCH ×2 (12:58→21:52)
[2018-02-23] MEDS: traMADol HCL 50 MG TAB PO PRN ×3 (12:59→21:58)
--- NOTE | 2018-02-23 13:42 | EKG ---
Date Performed: 02/22/2018 Time Performed: 21:53:18 PTAGE: 82 years EKG: Sinus rhythm WITH FREQUENT PACs NONSPECIFIC T-WAVE CHANGE ABNORMAL RHYTHM ECG Since PREVIOUS TRACING , no significant change noted PREVIOUS TRACIN02/22/2018 16.25 DOCTOR: Cash Tavares Interpretating Date/Time 02/23/2018 13:42:23
--- NOTE | 2018-02-23 13:42 | EKG ---
Date Performed: 02/22/2018 Time Performed: 16:25:16 PTAGE: 82 years EKG: Sinus rhythm WITH FIRST DEGREE AV BLOCK WITH FREQUENT SUPRAVENTRICULAR PREMATURE COMPLEXES NONSPECIFIC ST & T-WAV E ABNORMALITY ABNORMAL ECG Since PREVIOUS TRACING , no significant change noted PREVIOUS TRACIN02/22/2018 10.19 DOCTOR: Cash Tavares Interpretating Date/Time 02/23/2018 13:41:53
--- NOTE | 2018-02-23 15:19 | HHI.GIFU ---
Subjective Remarks Pt is resting in bed, by bed side, aware of bx results and made decision to go with hospice (Areli Maldonado ARISTIDES) Objective Vitals I&O Vital Signs Date Time Temp Pulse Resp B/P (MAP) Pulse Ox O2 Delivery O2 Flow Rate FiO2 02/23/18 04:00 98.2 85 18 179/67 (104) 94 02/23/18 03:07 18 02/23/18 00:01 97.6 87 18 112/83 (93) 93 02/22/18 23:48 Nasal Cannula 2.00 02/22/18 20:00 98.0 97 18 166/76 (106) 96 I/O 02/22/18 02/22/18 02/22/18 02/23/18 02/23/18 02/23/18 07:00 15:00 23:00 07:00 15:00 23:00 Intake Total 360 ml 360 ml Balance 360 ml 360 ml Intake Oral 360 ml 360 ml # Voids 3 4 3 # Bowel Movements 0 Laboratory Laboratory Tests Test 02/22/18 18:50 02/23/18 02:05 Troponin I 0.02 0.02 Date/Time Source Procedure Growth Status 02/22/18 11:32 Urine Catheterized Urine Urine Culture - Preliminary Group D Enterococcus Resulted Imaging Last Impressions Head CT 02/22/18 1806 Signed Impressions: CONCLUSION: 1. Hypodensities in the right parietal white matter and right occipital cortex , nonspecific on noncontrast CT. 2. Given the clinical suspicion for metastatic disease, may consider MRI of th e brain with and without contrast for further characterization. Liver Biopsy CT 02/21/18 0000 Signed Impressions: CONCLUSION: Uncomplicated CT guided biopsy of right hepatic lobe mass. Abdomen MRI 02/21/18 0000 Signed Impressions: CONCLUSION: 1. Greater than 10 cm mass involving most of the right lobe of the liver with inhomogeneous pattern of enhancement, extension into the liver tip and evidence of extension into the inferior vena cava. 2. Moderate ascites and moderate size right pleural effusion. 3. Sludge in the gallbladder, left renal cysts, and aortic aneurysm with stent in place. Liver Ultrasound 02/19/18 0000 Signed Impressions: Service Date/Time: Monday, February 19, 2018 02:38 - CONCLUSION: 1. The liver is cirrhotic and heterogeneous. No distinct focal mass is identified by ultrasound. 2. Ascites and bilateral pleural effusions. 3. Sludge is noted layering dependently in the gallbladder with no distinct stones. 4. Mild splenomegaly with no focal lesions. Alonso Ac MD Chest X-Ray 02/19/18 0000 Signed Impressions: CONCLUSION: 1. New patchy infiltrate with small effusion in the right lower lung. 2. Pulmonary venous congestion. 3. Stable cardiomegaly and evidence of previous granulomatous disease. Abdomen/Pelvis CT 02/18/18 2209 Signed Impressions: Service Date/Time: Sunday, February 18, 2018 22:28 - CONCLUSION: 1. No acute abnormality to explain the patient's pain. 2. Cirrhosis with concern for right hepatic lobe mass measuring approximately 8 cm. MRI with gadolinium is suggested to further evaluate this lesion. Hepatocellular carcinoma is the chief concern. 3. Stable small volume ascites. 4. Umbilical hernia. 5. Cholelithiasis. José Miguel Rollins Jr., MD Physical Exam HEENT: Normocephalic; atraumatic, generalized pale color, obese CHEST: Even/unlabored , no shortness of breath at rest CARDIAC: RRR ABDOMEN: Large, distended, soft, tenderness noted at the site of liver biopsy right side abdomen, bowel sounds active EXTREMITIES: No clubbing, cyanosis, or edema. SKIN: Normal; no rash; no jaundice. NURSE HEAD: Alert and oriented increased anxiety (Areli Maldonado) Assessment and Plan Plan Plan Assessment: - Cirrhosis with CT findings concerning for liver mass with elevated LFTs Pt denies known history of liver issues, no ETOH in 40 years LFTs (02/18) AST-82 ALT-23 Alk phos-254 T bili-1 CT abdomen and pelvis W/O contrast (02/18) --> Cirrhosis with concern for right hepatic lobe mass measuring approx 8cm. Stable small volume ascites. Umbilical hernia. Cholelithiasis US liver (02/19) The liver is cirrhotic and heterogeneous. No distinct focal mass is identified by US. Ascites and bilateral pleural effusions. Sludge is noted layering dependently in the gallbladder with no distinct stones. Mild splenomegaly with no focal lesions. AFP- 7 Hepatitis panel negative. Ferritin-171 States father of liver cancer, states father drank alcohol when he was young - Markedly elevated CA 19-9 -1288. Denies personal family history of pancreatic issues and family history of pancreatic cancer. - Weight loss - 20 lbs 3 months, unclear etiology. last EGD, colonoscopy 7y ago and patient is unsure of result 02/22/2018 patient had liver biopsy done on 02/21/2018 without any complications for his liver mass. He seems fairly depressed and blue today and states that he did not get good news about the liver and that he did not have long to live. We did discuss that the biopsies are pending. We talked about his life, his pain management and symptoms, his appetite and diet, and supportive care to patient. While talking his and grandson came in who he was glad to see. His wishes at this time are to go home which he hopes will happen tomorrow. He was also told that his pain medicine was affecting his kidneys so he wants to try some new medication to see if it is effective or not but his most important thing is he is pain management. Patient notes mild headache as well as some right-sided abdominal pain where the biopsy was taken. He did receive some pain medicine and seems to be more comfortable now. His CODE STATUS with DNR. Encourage patient to maintain as much activity as he can tolerate for his strengthening and mobility, encouraged small meals and p.o. fluids. Appreciate palliative care input. Hemoglobin on was 9.4 no obvious bleeding noted. Consider EUS if patient desires or as needed to manage his symptoms in case. 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 Foss and this note is written on his behalf (Areli Maldonado) Physician Comments Patient seen and examined Agree with above Continue with current supportive care Monitor labs We will sign off (Jeff Foss MD) Areli Maldonado February 23, 2018 15:19 Jeff Foss MD February 23, 2018 19:31
[2018-02-23 20:00] VITALS: BP 146/64; PULSE 93; RESP 18; TEMP 97.7; O2SAT 95
[2018-02-24] VITALS: BP 141/75; PULSE 75; RESP 18; TEMP 98.2; O2SAT 95
[2018-02-24] MEDS: HYDROmorphone HCL PF 0.5 MG/0.5 ML SYRINGE IV PUSH PRN ×2 (01:55→05:07)
[2018-02-24] MEDS: traMADol HCL 50 MG TAB PO PRN ×2 (02:59→08:41)
[2018-02-24] MEDS: DEXAMETHASONE 4 MG TAB PO SCH ×2 (02:59→08:40)
[2018-02-24] MEDS: ONDANSETRON ODT 4 MG TAB PO PRN (04:20)
[2018-02-24 08:00] VITALS: BP 113/60; PULSE 80; RESP 18; TEMP 97.6; O2SAT 92
[2018-02-24] MEDS: FINASTERIDE 5 MG TAB PO SCH (08:40)
[2018-02-24] MEDS: PANTOPRAZOLE SOD 40 MG DELAYED RELEASE TAB PO SCH (08:40)
[2018-02-24] MEDS: FUROSEMIDE 40 MG TAB PO SCH (08:40)
[2018-02-24] MEDS: ALLOPURINOL 300 MG TAB PO SCH (08:40)
[2018-02-24] MEDS: LOSARTAN 50 MG TAB PO SCH (08:40)
[2018-02-24] MEDS: CIPROFLOXACIN 500 MG TAB PO SCH (08:40)
[2018-02-24] MEDS: METOPROLOL TARTRATE 50 MG TAB PO SCH (08:40)
[2018-02-24] MEDS: SODIUM CHLORIDE 0.9% FLUSH 10 ML FLUSH IV FLUSH SCH (08:41)
--- NOTE | 2018-02-24 09:30 | HHI.FPPN ---
Subjective Remarks Patient seen and examined today. Reports a headache overnight which has resolved. No acute events overnight. States yesterday evening hospice came by and spoke with him, he signed several papers, he will be doing home hospice. He is eager to head home today. No other complaints at this time. (Alonso Carbajal MD R1) Objective Vitals Vital Signs Date Time Temp Pulse Resp B/P (MAP) Pulse Ox O2 Delivery O2 Flow Rate FiO2 02/24/18 00:00 98.2 75 18 141/75 (97) 95 02/23/18 21:55 Room Air 02/23/18 20:00 97.7 93 18 146/64 (91) 95 I/O 02/23/18 02/23/18 02/23/18 02/24/18 02/24/18 02/24/18 07:00 15:00 23:00 07:00 15:00 23:00 Intake Total 360 ml 240 ml Balance 360 ml 240 ml Intake Oral 360 ml 240 ml # Voids 3 3 # Bowel Movements 0 0 (Alonso Carbajal MD R1) Result Diagram: 02/21/18 0607 02/21/18 0607 Objective Remarks GENERAL: This is an elderly gentleman sitting comfortably in chair, in no apparent distress. SKIN: Cool and dry. No jaundice. HEAD: Atraumatic. Normocephalic. EYES: Pupils equal round and reactive. Extraocular motions intact. No scleral icterus. No injection or drainage. ENT: MMM. Airway patent. NECK: Trachea midline. CARDIOVASCULAR: Regular rate and rhythm without murmurs, gallops, or rubs. RESPIRATORY: Clear to auscultation. Breath sounds equal bilaterally. No crackles. GASTROINTESTINAL: Biopsy site clean, dry, without bleeding or drainage. MUSCULOSKELETAL: Extremities without clubbing, cyanosis, or edema. NEUROLOGICAL: Awake and alert. Normal speech. (Alonso Carbajal MD R1) A/P Assessment and Plan Patient is an 82-year-old male with a history of chronic back pain, diabetes mellitus 2, chronic kidney disease stage III admitted to observation for right upper quadrant abdominal pain, found to have hepatic mass. Patient history of cirrhosis with weight loss, family history of hepatocellular carcinoma, CT imaging showing 8 cm hepatic lobe mass, laboratory analysis remarkable for greatly elevated CA-19-9. Gastroenterology consulted. Palliative care consult. Oncology consult. Hospice consult. CT-guided biopsy, MRI done. Physical therapy prior to discharge. Discharge Planning Anticipate discharge to Hospice today. (Alonso Carbajal MD R1) Attending Attestation Patient seen and examined, discussed with Dr Carbajal. I agree with assessment and management as documented and discussed with me. Pt reports headache overnight, but not too bad at the time of my exam. He feels ready to go home with hospice and is at peace with his decision. Discharge home today. Greater than 30 minutes spent counselling and coordinating care at discharge. 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 AFP: normal Ammonia: normal Hepatitis panel: negative CA 19-9: 1288 GI has been consulted; appreciate recs. Oncology consulted. Hospice consult. Reported to have home hospice set up, discharge today Pt expressed understanding of prognosis and is not interested in curative treatment (surgery, chemo, XRT). (2) Headache ICD Codes: R51 - Headache Status: Acute Plan: Head CT shows hypodensities in the right parietal white matter and right occipital cortex consistent with likely mets -Dilaudid for pain - Will try decadron 4mg PO Q6H (3) Urinary incontinence ICD Codes: R32 - Unspecified urinary incontinence Plan: Condom catheter in place -UA to rule out infection, culture pending - Will treat empirically with ciprofloxacin 500mg PO Q12H x 7 days (started 02/23 ) (4) Weakness ICD Codes: R53.1 - Weakness Status: Acute Plan: -Physical therapy (5) Type II diabetes mellitus ICD Codes: E11.9 - Type 2 diabetes mellitus Status: Chronic Plan: Low-dose sliding scale insulin Has not required insulin in several days. Will DC SSI (6) Chronic kidney disease, stage III (moderate) ICD Codes: N18.3 - Chronic kidney disease, stage III (moderate) Status: Chronic Plan: Follows with Dr. Ayala Associated with anemia and proteinuria BUN/creatinine appears to be at around baseline (30/2) GFR 30 Creatinine clearance of 14 Avoid contrast Avoid nephrotoxic medications; renally dose medications Permanent Comment: Last Edited By: Elaina Shine on February 19, 2018 03:28 (7) Anxiety ICD Codes: F41.9 - Anxiety disorder, unspecified Status: Chronic Plan: Continue home regimen of Lorazepam 0.5 mg (BID) as needed: 1 tablet at bedtime as needed for sleep and when daily as needed for anxiety (8) Hypertension ICD Codes: I10 - Hypertension Status: Chronic Plan: Continue home furosemide 40 mg p.o. daily, losartan 100 mg p.o. daily Change clonidine 0.1 mg p.o. twice daily home medication to as needed, may escalate for worsening blood pressure (9) Hyperlipidemia ICD Codes: E78.5 - Hyperlipidemia, unspecified Status: Chronic Plan: Atorvastatin held at admission. (10) Gout ICD Codes: M10.9 - Gout, unspecified Status: Chronic Plan: Continue home allopurinol 300 mg daily. (11) GERD (gastroesophageal reflux disease) ICD Codes: K21.9 - Gastro-esophageal reflux disease without esophagitis Status: Chronic Plan: Continue home Protonix 40 mg p.o. daily. (12) Nutrition, metabolism, and development symptoms ICD Codes: R63.8 - Other symptoms and signs concerning food and fluid intake Status: Acute Plan: Fluids: None Electrolytes: monitor and replete PRN Nutrition: Diabetic diet (Alonso Carbajal MD R1) Problem Qualifiers (1) Headache: Qualified Codes: G44.89 - Other headache syndrome (2) Urinary incontinence: Qualified Codes: R32 - Unspecified urinary incontinence (3) Type II diabetes mellitus: Qualified Codes: E11.8 - Type 2 diabetes mellitus with unspecified complications (4) Hypertension: Qualified Codes: I10 - Essential (primary) hypertension (5) Hyperlipidemia: Qualified Codes: E78.2 - Mixed hyperlipidemia (6) Gout: (7) GERD (gastroesophageal reflux disease): Qualified Codes: K21.9 - Gastro-esophageal reflux disease without esophagitis Alonso Carbajal MD R1 February 24, 2018 09:30 Sarah Bear MD February 24, 2018 13:42
[2018-02-24] MEDS ORDERED: CIPR-9 PO (09:59)
[2018-02-24] MEDS ORDERED: HYDROmorphone HCL PF 0.5 MG/0.5 ML SYRINGE IV PUSH PRN (10:00)
--- NOTE | 2018-02-24 10:00 | HHI.DS ---
Discharge Summary Admission Date February 19, 2018 at 08:42 Admitting Diagnosis Liver Mass (1) Liver mass Plan: Liver pathology shows poorly differentiated non small cell carcinoma CT-guided liver biopsy done CT showed 8cm mass MRI showed almost 10cm mass that seems to invade the IVC Liver US: Does not identify discrete mass. AFP: normal Ammonia: normal Hepatitis panel: negative CA 19-9: 1288 GI has been consulted; appreciate recs. Oncology consulted. Hospice consult. Reported to have home hospice set up, discharge today Pt expressed understanding of prognosis and is not interested in curative treatment (surgery, chemo, XRT). ICD Codes: R16.0 - Hepatomegaly, not elsewhere classified Status: Acute (2) Headache Plan: Head CT shows hypodensities in the right parietal white matter and right occipital cortex consistent with likely mets -Dilaudid for pain - Will try decadron 4mg PO Q6H ICD Codes: R51 - Headache Status: Acute (3) Urinary incontinence Plan: Condom catheter in place -UA to rule out infection, culture pending - Will treat empirically with ciprofloxacin 500mg PO Q12H x 7 days (started 02/23 ) ICD Codes: R32 - Unspecified urinary incontinence (4) Weakness Plan: -Physical therapy ICD Codes: R53.1 - Weakness Status: Acute (5) Type II diabetes mellitus Plan: Low-dose sliding scale insulin Has not required insulin in several days. Will DC SSI ICD Codes: E11.9 - Type 2 diabetes mellitus Status: Chronic (6) Chronic kidney disease, stage III (moderate) Plan: Follows with Dr. Ayala Associated with anemia and proteinuria BUN/creatinine appears to be at around baseline (30/2) GFR 30 Creatinine clearance of 14 Avoid contrast Avoid nephrotoxic medications; renally dose medications ICD Codes: N18.3 - Chronic kidney disease, stage III (moderate) Status: Chronic (7) Anxiety Plan: Continue home regimen of Lorazepam 0.5 mg (BID) as needed: 1 tablet at bedtime as needed for sleep and when daily as needed for anxiety ICD Codes: F41.9 - Anxiety disorder, unspecified Status: Chronic (8) Hypertension Plan: Continue home furosemide 40 mg p.o. daily, losartan 100 mg p.o. daily Change clonidine 0.1 mg p.o. twice daily home medication to as needed, may escalate for worsening blood pressure ICD Codes: I10 - Hypertension Status: Chronic (9) Hyperlipidemia Plan: Atorvastatin held at admission. ICD Codes: E78.5 - Hyperlipidemia, unspecified Status: Chronic (10) Gout Plan: Continue home allopurinol 300 mg daily. ICD Codes: M10.9 - Gout, unspecified Status: Chronic (11) GERD (gastroesophageal reflux disease) Plan: Continue home Protonix 40 mg p.o. daily. ICD Codes: K21.9 - Gastro-esophageal reflux disease without esophagitis Status: Chronic (12) Nutrition, metabolism, and development symptoms Plan: Fluids: None Electrolytes: monitor and replete PRN Nutrition: Diabetic diet ICD Codes: R63.8 - Other symptoms and signs concerning food and fluid intake Status: Acute Brief History Patient w/hx of DM2 and chronic back pain presenting w/RUQ pain. PCP is Dr. Montgomery. Patient has poor health literacy/memory, seems confused at times. Patient has had severe nausea that has worsened but started 3 weeks ago. Has not been able to eat very much; has only been able to keep down toast and liquids during this time. Last ate hot tea with half piece of toast before coming to the hospital at 6 PM. No vomiting, dizziness, or hematemesis associated with the nausea. Has had a weight loss of about 18 pounds in the last 15 days (per chart documentation). Patient states that it is his nausea that has brought him to the hospital, grandson transported into the hospital at his request. He also reports that he has had back, hip, and shoulder pain that is chronic but has been worsening in the last couple days. Usually takes [place] 7.5-325 mg every 6 hours as needed for pain as a home medication, states however that this has not been improving his pain at all. The only thing that helps his pain is getting up and sitting in a chair. PCP is Dr. Moore. Patient was recently referred to pain management but has not seen them yet. He is usually able to walk only a couple steps before having to lean on a chair. Reports recent worsening abdominal distention most notable on the right side in the last 2 weeks. Denies shortness of breath. No diarrhea, bloody stools,lower extremity edema, or night sweats. No history of alcohol abuse. Patient states that his last drink was decades ago. Father from hepatic cancer. Was hospitalized in the hospital on the 02 of February for suspected ileus after day of being n.p.o. and on IV hydration. Was placed on Ofirmev 1 g IV every 6 hours for pain, however patient states that on his admission he received IV morphine which resolved his pain completely (he received IV morphine 1 in the ED). also had abdominal pain and back pain. Patient requested regular diet and requested to go home at the end of admission, stayed for 2 days. CBC/BMP: 02/21/18 0607 02/21/18 0607 Significant Findings Laboratory Tests Test 02/22/18 11:32 02/22/18 12:55 02/22/18 18:50 02/23/18 02:05 Urine Protein 30 mg/dL (NEG-TRACE) Urine Occult Blood TRACE (NEG) Urine Bacteria RARE /hpf (NONE) PE at Discharge GENERAL: This is an elderly gentleman sitting comfortably in chair, in no apparent distress. SKIN: Cool and dry. No jaundice. HEAD: Atraumatic. Normocephalic. EYES: Pupils equal round and reactive. Extraocular motions intact. No scleral icterus. No injection or drainage. ENT: MMM. Airway patent. NECK: Trachea midline. CARDIOVASCULAR: Regular rate and rhythm without murmurs, gallops, or rubs. RESPIRATORY: Clear to auscultation. Breath sounds equal bilaterally. No crackles. GASTROINTESTINAL: Biopsy site clean, dry, without bleeding or drainage. MUSCULOSKELETAL: Extremities without clubbing, cyanosis, or edema. NEUROLOGICAL: Awake and alert. Normal speech. Hospital Course Patient was admitted on 02/19 following right upper quadrant pain, nausea, liver mass found on CT. CA-19-9 antigen returned as 1288.4. Abdominal MRI was performed showing greater than 10 cm mass involving most of the right lobe of the liver with in homogenous pattern of enhancement, extension into the liver tip and evidence of extension into the inferior vena cava. Liver biopsy showed poorly differentiated non-small cell carcinoma, biopsy further suggestive of liver source being a metastatic colonic adenocarcinoma versus small bowel adenocarcinoma versus appendiceal adenocarcinoma. While in hospice palliative care was consulted, patient signed DNR. Hospice was consulted, patient was discharged home on home hospice on 02/24. Pt Condition on Discharge: Stable Discharge Disposition: Hospice/ Home Discharge Instructions DIET: Follow Instructions for: As Tolerated, No Restrictions Activities you can perform: Regular-No Restrictions New Medications: Ciprofloxacin (Cipro) 500 Mg Tab 500 MG PO Q12HR for 5 Days, #10 TAB Continued Medications: Allopurinol (Allopurinol) 300 Mg Tab 300 MG PO DAILY for Gout, #30 TAB 0 Refills Aspirin (Aspirin) 81 Mg Chew 81 MG CHEW DAILY, #30 TAB 0 Refills Atorvastatin (Atorvastatin) 20 Mg Tab 20 MG PO HS for Cholesterol Management, #93 TAB 3 Refills Cholecalciferol (Vitamin D3) 2,000 Unit Cap 2000 UNITS PO DAILY for Nutritional Supplement, #1 BOTTLE 0 Refills Clonidine (Catapres) 0.2 Mg Tab 0.1 MG PO BID for Blood Pressure Management, #180 TAB 3 Refills Cyanocobalamin (Vitamin B-12) 1,000 Mcg Tab 1000 MCG PO DAILY for Nutritional Supplement, #1 BOTTLE 0 Refills Finasteride (Proscar) 5 Mg Tab 5 MG PO DAILY for Manage Prostate Problems, #93 TAB 3 Refills Do not crush. Furosemide (Furosemide) 40 Mg Tab 40 MG PO DAILY, #30 TAB 0 Refills Glimepiride (Amaryl) 1 Mg Tab 1 MG PO DAILY for Blood Sugar Management, #93 TAB 3 Refills Take with breakfast or first main meal Hydrocodone-Acetaminophen (Hydrocodone-Acetaminophen) 7.5-325 mg Tab 1 TAB PO Q6H PRN for PAIN, TAB 0 Refills Lorazepam (Lorazepam) 0.5 Mg Tab 0.5 MG PO DIRECTED PRN for ANXIETY, #180 TAB 1 Refill 1 tablet at bedtime as needed for sleep and 1 daily as needed for anxiety Losartan (Cozaar) 100 Mg Tab 100 MG PO DAILY for Blood Pressure Management, #93 TAB 3 Refills Metoprolol Tartrate (Metoprolol Tartrate) 50 Mg Tab 50 MG PO BID, #186 TAB 3 Refills Mupirocin Topical (Mupirocin Topical) 2 % Oint 1 APPLIC TOPICAL BID for Mgmt Bacterial Infection, #1 TUBE 2 Refills Nitroglycerin SL (Nitrostat SL) 0.4 Mg Subl 0.4 MG SL DIRECTED PRN for CHEST PAIN, #100 TAB.SL 0 Refills One tablet under tongue for angina as needed. Pantoprazole (Pantoprazole) 40 Mg Tab 40 MG PO DAILY for Reflux, #30 TAB 0 Refills Polyethylene Glycol 3350 Powder (Miralax Powder) 17 Gm Powd 17 GM PO DAILY for Constipation, #1 CAN 0 Refills Mix and dissolve one measuring cap-ful (17 grams) in water or juice. Triamcinolone Topical (Triamcinolone Topical) 0.1% Cream 1 APPLIC TOPICAL BID for Inflammation, #30 GM 3 Refills Alonso Carbajal MD R1 February 24, 2018 10:00
--- NOTE | 2018-02-24 10:00 | HHI.DCPOC ---
Discharge Care Plan Diagnosis: (1) Hypertension (2) Type II diabetes mellitus (3) Liver mass, right lobe (4) Urinary incontinence Goals to Promote Your Health * To prevent worsening of your condition and complications * To maintain your health at the optimal level Directions to Meet Your Goals Take your medications as prescribed Follow your dietary instruction Follow activity as directed Keep your appointments as scheduled Take your immunizations and boosters as scheduled If your symptoms worsen call your PCP, if no PCP go to Urgent Care Center or Emergency Room Smoking is Dangerous to Your Health. Avoid second hand smoke Call the 24-hour hour crisis hotline for domestic abuse at Alonso Carbajal MD R1 February 24, 2018 10:00
[2018-02-24 19:52] LABS: CERULOPLASMIN 41 mg/dL (18-36)
[2018-02-25 03:49] LABS: MITOCHONDRIAL ABS LESS THAN 20.0 U (<=20.0)
--- NOTE | 2018-02-25 13:05 | MB ---
cc: Jossue Horner MD DATE: 02/22/2018 REASON FOR CONSULTATION: Patient with a large Liver mass. HISTORY OF PRESENT ILLNESS: This is an 82-year-old male who has a past medical history of type 2 diabetes, hypertension, abdominal aortic aneurysm, status post endovascular repair, hyperlipidemia, gout, history of pulmonary nodule, history of chronic thrombocytopenia, liver cirrhosis, portal hypertensive gastropathy, iron deficiency anemia and chronic kidney disease, who presents to the emergency department with right upper quadrant pain. He has been experiencing excruciating pain with nausea and vomiting. He has also had a distended abdomen. He has experienced more than 18 pounds of weight loss over the past month. He has a poor appetite. The patient was found to have an ileus and on a recent admission, he had a brief hospitalization and was eventually discharged. On this admission, the patient underwent imaging of the abdomen which revealed cirrhotic liver with a right hepatic lobe mass measuring approximately 8 cm. MRI was also obtained, which confirmed these findings. The mass was greater than 10 cm involving most of the right lobe of the liver, within a homogenous pattern of enhancement, extension into the liver tip and evidence of extension into the inferior vena cava. There was also moderate ascites and a moderate sized right pleural effusion. There was sludge in the gallbladder. The patient has undergone a CT-guided biopsy of the liver mass. Oncology has been consulted to make further recommendations. The patient was seen in the oncology clinic approximately 1 year ago. At that time, he had declined any further workup for his liver cirrhosis. He had also declined to have a followup and at that time stated that he will return in 1 year. He has a history of chronic thrombocytopenia and macrocytic anemia. The patient was noncompliant with respect to obtaining lab workup as well. The etiology of his hepatomegaly and splenomegaly and liver cirrhosis were unknown. I had offered him a referral to GI and additional imaging, but he had declined. Currently, the patient is lying comfortably in the bed. He states that he is depressed and he has not had any good news today. His abdomen is distended. He denies any pain. He states that he has already made up his mind and would not like to receive any kind of treatment if this is confirmed malignancy. He states that he is strongly considering hospice. His was present during this conversation. REVIEW OF SYSTEMS: A comprehensive review of system was completed which is negative except as mentioned in the HPI. PAST MEDICAL HISTORY: Type 2 diabetes, hypertension, abdominal aortic aneurysm, hyperlipidemia, history of gout, history of thrombocytopenia, portal hypertensive gastropathy, history of B12 deficiency, iron deficiency anemia, and chronic kidney disease. PAST SURGICAL HISTORY: History of CABG, history of appendectomy, upper and lower endoscopy in 2013, endovascular repair of abdominal aortic aneurysm. MEDICATIONS: 1. Dilaudid 1 mg IV q. 2 hours p.r.n. 2. Decadron 4 mg p.o. q. 6 hours p.r.n. 3. Cipro 500 mg p.o. 12 hours. 4. Zofran 4 mg p.o. q. 4 hours. 5. Pantoprazole 40 mg p.o. daily. 6. Allopurinol 300 mg p.o. daily. 7. Proscar 5 mg p.o. daily. 8. Furosemide 40 mg p.o. daily. 9. Losartan 100 mg p.o. daily. 10. Metoprolol 50 mg p.o. b.i.d. 11. Clonidine 0.1 mg p.o. b.i.d. 12. Reglan 5 mg IV q. 6 hours p.r.n. 13. Lorazepam 0.5 mg p.o. b.i.d. 14. Tylenol 650 mg p.o. q. 6 hour/pain. 15. Narcan 0.4 mg IV p.r.n. ALLERGIES: HE IS ALLERGIC TO IODINATED CONTRAST, ORAL AND IV DYE, AND PENICILLIN G. FAMILY HISTORY: Reviewed and is noncontributory to this admission. SOCIAL HISTORY: He is . He lives with his . He is retired. He does not smoke cigarettes. He quit drinking 40 years ago. No illicit drug use. PHYSICAL EXAMINATION: VITAL SIGNS: Blood pressure is 151/66, pulse in the 70s, temperature is 98, respiratory rate is 18, O2 saturations are 92% on 2 liters nasal cannula. GENERAL: Elderly male in no apparent distress. HEENT: Pupils are equal, round, and reactive to light. EOMI. No thrush. No oral lesions. NECK: Supple. No JVD. No bruits. No lymphadenopathy. CHEST: Clear to auscultation bilaterally. CARDIAC: S1, S2. Regular rate and rhythm. ABDOMEN: Soft. Nontender. Distended. Bowel sounds are present. There is a large mass palpated in the right upper quadrant. EXTREMITIES: Without any edema, erythema, cyanosis. SKIN: Without any petechiae, lesions, or bruises. NEUROLOGIC: No focal deficits. PSYCHIATRIC: Mood and affect is appropriate. LABORATORY DATA: WBC 8.4, hemoglobin 9.4, platelet count 132. Serum chemistry: Sodium 143, potassium 4.5, chloride 106, CO2 27, anion gap 10, BUN 31, creatinine 2.02, GFR is 32, glucose is 134, calcium 9.3. AST is 105, ALT is 30, alkaline phosphatase 269. Troponin 0.02. Total protein 7, albumin 2.6. His CA 19-9 level is elevated to 1288.4. AFP is 7. IMAGING: Reviewed in the EMR. ASSESSMENT AND PLAN: This is an 82-year-old male with multiple medical problems as stated above, who presented to the emergency department with abdominal fullness, pain, loss of appetite, weight loss and was found to have a large mass in his liver based on the imaging. 1. Large mass in the right lobe of the liver with inhomogeneous pattern with extension into the liver tip and evidence of extension to the inferior vena cava. This is quite concerning for malignancy. A primary hepatocellular carcinoma versus pancreatic carcinoma versus another primary is suspected. CT-guided biopsy has been completed. The results are pending. I had a long discussion with the patient and his . He states that he does not want to receive any treatment if this is confirmed malignancy. He is requesting placement to hospice and he would like to go home today. I explained to the patient that the results of the biopsy are not available at this time and I cannot get him an exact diagnosis. If this is hepatocellular carcinoma, this appears to be unresectable and usually hepatocellular carcinoma is treated with an oral tyrosine kinase inhibitor. If this is another malignancy such as pancreatic cancer or another GI malignancy, then these types of cancers are treated with systemic chemotherapy. He is quite sure that he does not want to receive any treatment. He states that he would like to go home and be comfortable and he wants to spend time with his family. We will ask palliative care to see this patient. A referral to hospice has been made. 2. Abdominal distention due to mass. Continue comfort measures, pain control. 3. Nausea. Continue IV antiemetics p.r.n. 4. History of liver cirrhosis. 5. Chronic thrombocytopenia. Currently, his platelet count is 130,000, he is asymptomatic 6. Normocytic anemia with a hemoglobin of 9.4, he is currently asymptomatic. I would recommend obtaining iron studies. His platelet count is currently 132,000, he is asymptomatic. We will continue to monitor. 7. Normocytic anemia. Hemoglobin is 9.4. He appears to be asymptomatic. No packed red blood cell transfusion is indicated and since the patient does not want to have any kind of intervention, we will hold off on completing any iron studies at this time. The patient wants to go home with hospice. Thank you for allowing me to participate in the care of this patient. I will continue to follow this patient along. MD TOSHIA Grande/RICARDO , 12:25 PM , 01:04 PM
== END 2018-02-24 12:18 | disposition home or self-care (01) | DRG 437 ==
LOC: NEPE 20:38 → UNDOADMIN 02-19 00:26 → NEDA 02-19 00:26 → INTOOBSV 02-19 02:23 → NEDA 02-19 02:23 → N06A 02-19 03:11 → OBSVTOIN 02-19 08:42
PROVIDERS: ADMIT Family Medicine; ATTEND Family Medicine
PROC: 0FB13ZX Excision of Right Lobe Liver, Percutaneous Approach, Diagnostic (ICD-10-PCS; principal; 2018-02-21)
DX: C22.8 Malignant neoplasm of liver, primary, unspecified as to type (principal); E11.22 Type 2 diabetes mellitus with diabetic chronic kidney disease; D69.6 Thrombocytopenia, unspecified; K74.60 Unspecified cirrhosis of liver; N18.3 Chronic kidney disease, stage 3 (moderate); M54.9 Dorsalgia, unspecified; I12.9 Hypertensive chronic kidney disease with stage 1 through stage 4 chronic kidney disease, or unspecified chronic kidney disease; D50.0 Iron deficiency anemia secondary to blood loss (chronic); G89.29 Other chronic pain; I25.10 Atherosclerotic heart disease of native coronary artery without angina pectoris; M10.9 Gout, unspecified; E78.5 Hyperlipidemia, unspecified; F41.9 Anxiety disorder, unspecified; R51 Headache; K21.9 Gastro-esophageal reflux disease without esophagitis; R32 Unspecified urinary incontinence; Z66 Do not resuscitate; Z88.0 Allergy status to penicillin; Z91.041 Radiographic dye allergy status; Z79.82 Long term (current) use of aspirin; Z79.891 Long term (current) use of opiate analgesic; Z79.899 Other long term (current) drug therapy; Z95.1 Presence of aortocoronary bypass graft; Z80.8 Family history of malignant neoplasm of other organs or systems; Z51.5 Encounter for palliative care
CPT/HCPCS: 47000; 70450; 71046; 74176; 74183; 76705; 77012; 80053; 80074; 81001; 82103; 82105; 82140; 82390; 82728; 82948; 83520; 83605; 83690; 84484; 85007; 85025; 85027; 85610; 85730; 86038; 86255; 86301; 87077; 87086; 87186; 88307; 88313; 88341; 88342; 93005; 94150; 94667; 94668; 99152; 99153; A9577; J1170; J1815; J2060; J2250; J2270; J2765; J3010; J7030; J8540